=== PATIENT | female | born 1950 | race Caucasian/White ===

== ENCOUNTER → 2016-11-12 | Outpatient (CLI) | payer BC ==
[~2016-11-12] MED LIST: ASPEC81 PO; CGN1 PO; CYAN10004 PO; EFF375 PO; HYDR25TA5 PO; KLN5 PO; LEVO125T72 PO; LPT40 NG; LSN25 PO; OMEG-112 PO; POLY335040 PO; PROP20TA4 PO; PYRI100T2 PO; TAMS0.4C38 PO; VITACAP37 PO; ZYP5 PO
== END | disposition home or self-care (01) ==
LOC: C.PAPS 14:22
PROVIDERS: ATTEND Obstetrics & Gynecology
DX: Z01.419 Encounter for gynecological examination (general) (routine) without abnormal findings (principal)

== ENCOUNTER → 2017-06-02 | Outpatient (CLI) | payer BC ==
--- NOTE | 2017-06-02 12:04 | DIAGNOSTIC IMAGING REPORT ---
RIGHT FEMUR 2 VIEWS ROUTINE CLINICAL HISTORY: Right leg pain COMPARISON: None. DISCUSSION: No fractures or dislocations are visualized. No destructive lesions are visualized. There are minor degenerative changes within the knee. IMPRESSION: 1. No fractures identified 2. No destructive lesions are visualized on conventional radiographic imaging Electronically signed by: Antonio Levine M.D. 06/02/2017 12:03 PM Dictated Date/Time: 06/02/2017 12:02 PM
== END | disposition home or self-care (01) ==
LOC: C.RAD1850 11:46
PROVIDERS: ATTEND Family Medicine
DX: M79.604 Pain in right leg (principal)

== ENCOUNTER → 2017-06-25 | Outpatient (CLI) | payer BC ==
--- NOTE | 2017-06-25 12:58 | DIAGNOSTIC IMAGING REPORT ---
VIDEO SWALLOW CLINICAL HISTORY: DYSPHAGIA,VASCULAR DEMENTIA,AKATHISIA. COMPARISON STUDY: No previous studies for comparison. Fluoroscopy time: 4.3 minutes. FINDINGS: Swallowing mechanism was impaired with diminished laryngeal elevation and epiglottic inversion. Multiple episodes of tracheal aspiration were noted with swallows of thin liquids. No aspiration was identified with nectar thick liquids. No additional consistencies were given at this time. Significant residuals were noted. Swallowing mechanism was delayed. IMPRESSION: 1. Multiple episodes of tracheal aspiration with swallows of thin liquids. 2. Delayed initiation of swallow. 3. Full recommendations by speech pathology to follow. Electronically signed by: Naveen Aceves M.D. 06/25/2017 12:56 PM Dictated Date/Time: 06/25/2017 12:54 PM
--- NOTE | 2017-06-25 15:57 | SWALLOWING EVALUATION ---
HISTORY: This 66 year old woman was referred for a video swallow study at [facility] in order to rule out aspiration and identify the safest consistencies for optimal oral intake. Family (spouse and daughter) were present and provided history for the patient as she was unable. Patient has been slowly declining with regard to her swallowing over the past several months. 3-4 months ago, the patient was able to eat soft solid food and drink liquids without any significant issues. At this point, she is only accepting liquids. She will at times produce a cough and guttural/gurgly sounds while she is eating. In addition, the patient is taking many anti-psychotic medications which can be contributing to her swallowing difficulties and the spouse reported that these medications have been continuously adjusted for ~ 6 months. Current list of medications not available at the time of the study, but family did state one medication was "just approved by the FDA". PMH is significant for AMS, moderate major depression, vascular dementia, constipation, hyponatremia, tardive dyskinesia. Family denied any recent pneumonia. PROCEDURE: The patient was seen in the Radiology Department of [facility] for the [facility]. Cursory examination of the oral cavity revealed natural dentition in fair condition. Movement of the articulators was impaired as evidenced by lingual fasciculation and labial tremors. Speech was clear however she tended to have echolalia. She also presented with baseline guttural sounds. The patient was seated upright in a wheelchair and was viewed in the Lateral plane. The Anterior-Posterior (A-P) plane was deferred. Of note, the patient tended to keep a "chin up" position for the study and was unable to maintain a neutral chin position without MANAGER UNIT assistance (holding patient's head neutral). She was unable to follow directions to complete safe swallow strategies. In the lateral plane, the patient was given the following boluses: Single swallow thin liquid barium self-presented from a cup x1, 1 tsp. nectar-thick liquid barium, and a single swallow nectar-thick liquid barium clinician-presented from a cup x1. RESULTS: Oral Stage: Lip closure was reduced as evidenced by anterior loss from inter-labial space but did not progress past the monalisa boarder. The patient was unable to maintain a cohesive liquid bolus upon command. Mastication was unable to be assessed. Lingual motion for bolus transport was repetitive and disorganized. A majority of each bolus remained in the oral cavity after the initial swallow, located along the palate, tongue, lateral and anterior sulci. The initiation of the pharyngeal swallow was delayed and triggered when the bolus head reached pyriforms. Significant oral stage dysphagia noted. The patient had difficulty with initiation of lingual motion compounded by fasciculation/tremors. Verbal cues were not always effective and use of a gentle lingual depression with a dry spoon also did not assist. Pharyngeal Stage: Soft palate elevation was complete. Laryngeal elevation revealed partial superior movement of the thyroid cartilage and partial approximation of the arytenoids to the epiglottic base. Anterior hyoid excursion was partially reduced. There was little to no epiglottic deflection. Laryngeal vestibular closure was incomplete with a wide column of contrast being located in the vestibule at the height of the swallow. The pharyngeal stripping wave was present yet diminished. Pharyngeal contraction was not assessed. There was partial and at times minimal distention and duration to the opening of the pharyngoesophageal segment (PES). Tongue base retraction was reduced, with a wide column of contrast located between the tongue base and pharyngeal wall during the swallow. There was diffuse retention located throughout the pharynx after the initial swallow. The patient presented with laryngeal penetration and aspiration of thin liquids. She would produce a strong guttural/gurgly sound and cough reflex in response to this. Cough reflex was not strong enough to clear the airway of the aspiration. There was laryngeal penetration without aspiration of nectar thick liquids. Essentially, the patient would produce an initial swallow, yet most of the liquid bolus would remain in the pharynx. The bolus would then "montez" up and down in the pharynx while she attempted to re-swallow. While this occurred, the patient would aspirate. Eventually, the patient was able to produce 3 swallows (with time) and clear the majority of the bolus. She did not respond to verbal cues to swallow or, as stated above, lingual depression with a spoon. With nectar thick liquids, there were similar findings but with much less retention and no aspiration. She is however at HIGH risk to aspirate while this occurs. Solid boluses were not attempted due to safety concerns. SUMMARY/RECOMMENDATIONS: This patient presents with moderate-severe alethea-pharyngeal dysphagia ad is a HIGH aspiration risk. MANAGER UNIT spoke at length with spouse and daughter after the study was completed regarding results and concerns for aspiration that are likely due to not only her medical diagnoses but also her regimen of anti-psychotic medications which are known for causing dysphagia as a side effect. Family was present while the patient was producing a strong cough reflex from aspiration and stated while at times she does cough at home with eating, it is not as severe as what the patient was producing currently. They stated many times she is able to swallow liquid and medications in a timely manner, without holding or guttural sounds, but obviously has episodes such as what was presented today with the study. Spouse reported he consistently needs to hold the patient's head in a neutral position, and if she does cough or have any difficulty, he immediately stops feeding her and re-approaches her at a later time. She has not had any pneumonia recently and is able to ambulate at home. Patient is also able to brush her own teeth and does so at home as well. Family also reported that the patient has expressed in the past the she did not wish to have a feeding tube placed should a time comes where it may need to be considered. Due to the above, and for quality of life, the following is recommended: 1. Full liquid diet, NECTAR thick. 2. STRICT Aspiration precautions, NO straws. Fully upright while eating and 30 minutes after meals. Do not lay flat, elevate head of the bed to at least 30 degrees at all time, to include while sleeping. 3. Safe swallow strategies: Assist with keeping chin in a neutral position. Small single sips. Watch for the swallow. Stop feeding and re-approach with any evidence of coughing or overt aspiration. 4. Stringent oral care to include brushing all surfaces of the tongue and mouth with a toothbrush and toothpaste. Complete prior to and after meals, along with before bed. This will assist in reducing oral bacteria that can be aspirated in saliva. 5. Follow up with PCP regarding results and recommendations. Consider follow up with outpatient speech therapy services for continued education and carryover of diet/safe swallow strategies. 6. Family was encouraged to return to [facility] and have the patient be evaluated in the emergency department should the patient's swallowing status worsen further. All of the above were discussed with family with verbal understanding, to include signs of aspiration, risks of aspiration, aspiration pneumonia, completion of oral care, and where to purchase thickener. Dr. Pyle office was also contacted following the study regarding results and information was provided to [facility] as Dr. Pyle was out of the office. It is suspected the patient's swallowing may worsen further due to her medical diagnoses and medication management, and recommendation/plan of care would needs to be discussed with family if/when this occurs. Verbal understanding given by RN. Thank you for referral of this patient. Please contact me at if any additional information is needed.
== END | disposition home or self-care (01) ==
LOC: C.RAD 11:05
PROVIDERS: ATTEND Family Medicine
DX: R13.10 Dysphagia, unspecified (principal); F01.51 Vascular dementia, unspecified severity, with behavioral disturbance; E03.9 Hypothyroidism, unspecified; T43.505A Adverse effect of unspecified antipsychotics and neuroleptics, initial encounter; G25.71 Drug induced akathisia

== ENCOUNTER → 2017-07-05 | Outpatient (CLI) | payer BC ==
[~2017-07-05] MED LIST changes: +AGMUDL4005 PO; +CLON0.5T3 PO; +LEVO112T2 PO; +OLAN-80 PO; +PIMA17TA PO; +POLY3350 PO; +VALB40CA PO; +VENL150C56 PO
--- NOTE | 2017-07-05 12:24 | DIAGNOSTIC IMAGING REPORT ---
KUB CLINICAL HISTORY: Constipation. FINDINGS: 2 AP supine abdominal radiographs are compared to study dated 06/24/2016 and correlated with abdominal CT dated 07/28/2012. There is a nonobstructed abdominal bowel gas pattern. Moderate to severe colonic fecal retention is observed. Enteric contrast is present in the colon, possibly related to a recent fluoroscopic examination. No evidence of intraperitoneal free air is seen. There are no abnormal abdominal calcifications. Phleboliths are observed in the pelvis. The skeletal structures are osteopenic. The imaged skeletal structures appear intact. IMPRESSION: 1. Nonobstructed abdominal bowel gas pattern noting moderate to severe constipation. 2. There is retained enteric contrast within the colon, likely related to a recent fluoroscopic procedure. Clinical correlation will be required. Electronically signed by: Dick Phelan M.D. 07/05/2017 12:23 PM Dictated Date/Time: 07/05/2017 12:21 PM
== END | disposition home or self-care (01) ==
LOC: C.RAD1850 11:50
PROVIDERS: ATTEND Family Medicine
DX: K59.00 Constipation, unspecified (principal); R93.3 Abnormal findings on diagnostic imaging of other parts of digestive tract

== ENCOUNTER 2017-07-06 17:24 | Emergency (ER) | payer BC ==
[~2017-07-06] VITALS: Ht 154.9 cm; Wt 43.0 kg
[~2017-07-06 17:24] MED LIST changes: -AGMUDL4005 PO; -CGN1 PO; -CLON0.5T3 PO; -LEVO112T2 PO; -OLAN-80 PO; -PIMA17TA PO; -POLY3350 PO; -POLY335040 PO; -VALB40CA PO; -VENL150C56 PO
[2017-07-06] MEDS ORDERED: CGN1 PO (17:29)
[2017-07-06 17:40] VITALS: TEMP 36.9; Ht 154.9 cm; Wt 43.0 kg
[2017-07-06] MEDS ORDERED: SODIUM CHLORIDE 0.9% 1000ML 1,000 ML IV STA (18:09)
[2017-07-06 18:32] LABS: BASO % 0.4 %; BASO ABS # 0.03 K/uL (0-0.2); COMPLETE YES; EOS % 0.7 %; HEMATOCRIT 40.7 % (37-47); IG% 0.2 %; LYMPH % 16.2 %; LYMPH ABS # 1.33 K/uL (1.2-3.4); MEAN CELL VOLUME 92.5 fL (80-100); MEAN CORPUSCULAR HEMOGLOBIN 33.4 pg (25-34); MEAN CORPUSCULAR HGB CONC 36.1 g/dl (32-36); MEAN PLATELET VOLUME 10.3 fL (7.4-10.4); MONO % 11.1 %; NEUT % 71.4 %; PLATELET COUNT 325 K/uL (130-400)
[2017-07-06 18:54] LABS: BUN/CREATININE RATIO 14.7 (10-20); CALCIUM 9.3 mg/dl (8.5-10.1); CREATININE 0.63 mg/dl (0.60-1.20); POTASSIUM 3.2 mmol/L (3.5-5.1)
[2017-07-06] MEDS ORDERED: CLON0.5T3 PO ×2 (19:06→19:07)
[2017-07-06] MEDS ORDERED: VENL150C56 PO (19:07)
[2017-07-06] MEDS ORDERED: OLAN-80 PO (19:07)
[2017-07-06] MEDS ORDERED: LEVO112T2 PO (19:07)
[2017-07-06] MEDS ORDERED: VALB40CA PO (19:07)
[2017-07-06] MEDS ORDERED: PIMA17TA PO (19:07)
[2017-07-06] MEDS ORDERED: POLY3350 PO (19:08)
--- NOTE | 2017-07-06 19:13 | DIAGNOSTIC IMAGING REPORT ---
ABD/PELVIS NO IV OR ORAL CONT HISTORY: 66 years-old Female constipation, tachycardia, abd distension. Acute constipation with abdominal distention. COMPARISON: CT abdomen and pelvis 07/28/2012, renal ultrasound 06/22/2016 TECHNIQUE: Multiple axial CT images of the abdomen and pelvis were obtained without intravenous contrast. Oral contrast was administered. A dose lowering technique was used consistent with the principals of SHEILA. FINDINGS: There are groundglass and nodular consolidative opacities of the basal right lower lobe and right middle lobe, only partially imaged suggesting pneumonitis. No pneumoperitoneum identified. Imaged inferior cardiac chambers are mildly enlarged. Trace pericardial effusion. Coronary arterial disease. There is beam hardening artifact from positioning of patient's arms and also from overlying telemetry leads. Evaluation of the solid abdominal organs is limited without use of IV contrast The liver, spleen, pancreas, adrenal glands and gallbladder are unremarkable. There is mild left kidney atrophy compared to the right. No renal calculi or hydronephrosis. There is mild distention of the urinary bladder. Uterus and adnexa are unremarkable. No significant free pelvic fluid. There is mild atherosclerotic plaquing of the abdominal aorta. No bulky retroperitoneal adenopathy. There is no bowel obstruction or focal bowel wall thickening. Oral contrast progresses to the colon. Air-fluid levels within the rectosigmoid noted. No significant stool burden to suggest constipation. Tubular air-filled structures of the right lower quadrant seen on image 230 of series 3 suggests a normal appendix. Soft tissues are unremarkable. Bones are mildly demineralized. Advanced intervertebral disc space narrowing at L4-L5. 7 mm anterolisthesis L4 on L5 is likely secondary to underlying advanced facet disease. IMPRESSION: 1. No evidence of bowel obstruction. No significant stool burden identified to suggest constipation. 2. Air-fluid levels within the rectosigmoid may reflect diarrheal state. 3. No evidence of acute appendicitis. 4. Subsegmental groundglass and nodular consolidative opacities of the basal right lower lobe and right middle lobe, only partially imaged suggest pneumonitis. 5. Additional incidental findings as above. The above report was generated using voice recognition software. It may contain grammatical, syntax or spelling errors. Electronically signed by: Donell Giang M.D. 07/06/2017 7:12 PM Dictated Date/Time: 07/06/2017 7:02 PM
[2017-07-06] MEDS ORDERED: AMOXICILLIN/CLAVULANATE SUSP 400 MG/5 ML UDP PO STA (20:00)
[2017-07-06 20:09] VITALS: BP 140/98; PULSE 100; O2SAT 99
[2017-07-06] MEDS ORDERED: POLY335040 PO (20:11)
[2017-07-06] MEDS ORDERED: AGMUDL4005 PO ×2 (20:17→21:11)
[2017-07-06] MEDS ORDERED: AMOXICILLIN/CLAVULANATE SUSP 400 MG/5 ML PO ONE (20:30)
--- NOTE | 2017-07-07 01:01 | EMERGENCY ROOM VISIT NOTE ---
History Report prepared by Janis: Bonnie Anthony Under the Supervision of: Dr. Luis Khoury M.D. First contact with patient: 17:55 Chief Complaint: CONSTIPATION Stated Complaint: CONSTIPATION- PHYSICIAN REFERRED History of Present Illness The patient is a 66 year old female who presents to the Emergency Room with complaints of persistent constipation starting 2 weeks ago. The patient went to see her PCP yesterday and today for this. She was found to be constipated. Today she had an enema with some results, but not a large bowel movement. She was sent to the ED. Her family has not noticed any obvious abdominal tenderness or fever. The patient has dysphagia and it has been hard to get her to drink fluids. Her urine has been dark yellow recently. She has a history of strokes and tardive dyskinesia. She has not had any previous abdominal surgeries. The history is limited secondary to the patient's chronic medical issues. Source of History: family History Limited By: other (chronic medical issues) Onset: 2 weeks ago Position: other (global) Quality: other (constipation) Timing: other (persistent) Modifying Factors (Relieving): other (enema) Associated Symptoms: + urinary symptoms (dark urine), No fevers, No abdominal pain Review of Systems Limited secondary to patient's chronic medical problems. Past Medical & Surgical Medical Problems: (1) Altered mental status (2) Constipation (3) Hyponatremia (4) Moderate major depression, single episode (5) Suicidal thoughts (6) Tardive dyskinesia (7) Vascular dementia Family History Ovarian cancer Uterine cancer Social History Smoking Status: Never Smoker Drug Use: none Marital Status: Housing Status: lives with family Occupation Status: retired Current/Historical Medications Scheduled Amoxicillin/Clavulanate Potas (Augmentin 400MG/5ML), 10 ML PO BID Amoxicillin/Clavulanate Potas (Augmentin 400MG/5ML), 10 ML PO BID Benztropine Mesylate (Cogentin), 0.5 TAB PO DAILY Clonazepam (Klonopin), 0.5 MG PO BID Clonazepam (Klonopin), 0.75 MG PO HS Levothyroxine Sodium (Synthroid), 112 MCG PO DAILY Olanzapine (Zyprexa), 1.25 MG PO DAILY Pimavanserin Tartrate (Nuplazid), 2 TABS PO QPM Propranolol Hcl (Inderal), 10 MG PO BID Tamsulosin Hcl (Flomax), 0.4 MG PO DAILY Valbenazine Tosylate (Ingrezza), 80 MG PO QPM Venlafaxine Hcl (Effexor Extended Rel), 150 MG PO DAILY Scheduled PRN Polyethylene Glycol 3350 (Polyethylene Glycol 3350), 17 GM PO DAILY PRN for Constipation Allergies Coded Allergies: Clarithromycin (Verified Allergy, Unknown, unknown, 04/23/12) [facility] Doxycycline (Verified Allergy, Unknown, unknown, 04/23/12) [facility] Gabapentin (Verified Allergy, Unknown, UNKNOWN, 07/28/12) Norepinephrine (Verified Adverse Reaction, Unknown, rapid hr, 08/02/16) Physical Exam Vital Signs Date Time Temp Pulse Resp B/P (MAP) Pulse Ox O2 Delivery O2 Flow Rate FiO2 07/06/17 20:09 100 22 140/98 99 Room Air 07/06/17 19:31 97 07/06/17 18:32 107 142/89 95 Room Air 07/06/17 17:40 36.9 133 20 133/96 96 Room Air Physical Exam GENERAL: Awake, alert, well-appearing, in no distress HENT: Normocephalic, atraumatic. Oropharynx unremarkable. EYES: Normal conjunctiva. Sclera non-icteric. NECK: Supple. No nuchal rigidity. FROM. No JVD. RESPIRATORY: Clear to auscultation. CARDIAC: Borderline tachycardic rate, normal rhythm. Extremities warm and well perfused. Pulses equal. ABDOMEN: Soft, non-distended. No tenderness to palpation. No rebound or guarding. No masses. RECTAL: Deferred. MUSCULOSKELETAL: Chest examination reveals no tenderness. No joint edema. Generalized muscular atrophy. LOWER EXTREMITIES: Calves are equal size bilaterally and non-tender. No edema. No discoloration. NEURO: Patient is aphasic except for moaning. Does not follow commands. SKIN: No rash or jaundice noted. Medical Decision & Procedures ER Provider Diagnostic Interpretation: Radiology results as stated below per my review and radiologist interpretation: ABD/PELVIS NO IV OR ORAL CONT HISTORY: 66 years-old Female constipation, tachycardia, abd distension. Acute constipation with abdominal distention. COMPARISON: CT abdomen and pelvis 07/28/2012, renal ultrasound 06/22/2016 TECHNIQUE: Multiple axial CT images of the abdomen and pelvis were obtained without intravenous contrast. Oral contrast was administered. A dose lowering technique was used consistent with the principals of SHEILA. FINDINGS: There are groundglass and nodular consolidative opacities of the basal right lower lobe and right middle lobe, only partially imaged suggesting pneumonitis. No pneumoperitoneum identified. Imaged inferior cardiac chambers are mildly enlarged. Trace pericardial effusion. Coronary arterial disease. There is beam hardening artifact from positioning of patient's arms and also from overlying telemetry leads. Evaluation of the solid abdominal organs is limited without use of IV contrast The liver, spleen, pancreas, adrenal glands and gallbladder are unremarkable. There is mild left kidney atrophy compared to the right. No renal calculi or hydronephrosis. There is mild distention of the urinary bladder. Uterus and adnexa are unremarkable. No significant free pelvic fluid. There is mild atherosclerotic plaquing of the abdominal aorta. No bulky retroperitoneal adenopathy. There is no bowel obstruction or focal bowel wall thickening. Oral contrast progresses to the colon. Air-fluid levels within the rectosigmoid noted. No significant stool burden to suggest constipation. Tubular air-filled structures of the right lower quadrant seen on image 230 of series 3 suggests a normal appendix. Soft tissues are unremarkable. Bones are mildly demineralized. Advanced intervertebral disc space narrowing at L4-L5. 7 mm anterolisthesis L4 on L5 is likely secondary to underlying advanced facet disease. IMPRESSION: 1. No evidence of bowel obstruction. No significant stool burden identified to suggest constipation. 2. Air-fluid levels within the rectosigmoid may reflect diarrheal state. 3. No evidence of acute appendicitis. 4. Subsegmental groundglass and nodular consolidative opacities of the basal right lower lobe and right middle lobe, only partially imaged suggest pneumonitis. 5. Additional incidental findings as above. The above report was generated using voice recognition software. It may contain grammatical, syntax or spelling errors. Electronically signed by: Donell Giang M.D. 07/06/2017 7:12 PM Dictated Date/Time: 07/06/2017 7:02 PM Laboratory Results 07/06/17 18:18 Red Blood Count 4.40, Mean Corpuscular Volume 92.5, Mean Corpuscular Hemoglobin 33.4, Mean Corpuscular Hemoglobin Concent 36.1, Mean Platelet Volume 10.3, Neutrophils (%) (Auto) 71.4, Lymphocytes (%) (Auto) 16.2, Monocytes (%) (Auto) 11.1, Eosinophils (%) (Auto) 0.7, Basophils (%) (Auto) 0.4, Neutrophils # (Auto ) 5.85, Lymphocytes # (Auto) 1.33, Monocytes # (Auto) 0.91, Eosinophils # (Auto ) 0.06, Basophils # (Auto) 0.03 07/06/17 18:18 Test 07/06/17 18:18 White Blood Count 8.20 K/uL (4.8-10.8) Red Blood Count 4.40 M/uL (4.2-5.4) Hemoglobin 14.7 g/dL (12.0-16.0) Hematocrit 40.7 % (37-47) Mean Corpuscular Volume 92.5 fL (80-100) Mean Corpuscular Hemoglobin 33.4 pg (25-34) Mean Corpuscular Hemoglobin Concent 36.1 g/dl (32-36) Platelet Count 325 K/uL (130-400) Mean Platelet Volume 10.3 fL (7.4-10.4) Neutrophils (%) (Auto) 71.4 % Lymphocytes (%) (Auto) 16.2 % Monocytes (%) (Auto) 11.1 % Eosinophils (%) (Auto) 0.7 % Basophils (%) (Auto) 0.4 % Neutrophils # (Auto) 5.85 K/uL (1.4-6.5) Lymphocytes # (Auto) 1.33 K/uL (1.2-3.4) Monocytes # (Auto) 0.91 K/uL (0.11-0.59) Eosinophils # (Auto) 0.06 K/uL (0-0.5) Basophils # (Auto) 0.03 K/uL (0-0.2) RDW Standard Deviation 46.2 fL (36.4-46.3) RDW Coefficient of Variation 13.6 % (11.5-14.5) Immature Granulocyte % (Auto) 0.2 % Immature Granulocyte # (Auto) 0.02 K/uL (0.00-0.02) Anion Gap 9.0 mmol/L (3-11) Est Creatinine Clear Calc Drug Dose 58.0 ml/min Estimated GFR () 106.8 Estimated GFR (Non- 92.2 BUN/Creatinine Ratio 14.7 (10-20) Calcium Level 9.3 mg/dl (8.5-10.1) Total Bilirubin 0.5 mg/dl (0.2-1) Direct Bilirubin 0.1 mg/dl (0-0.2) Aspartate Amino Transf (AST/SGOT) 21 U/L (15-37) Alanine Aminotransferase (ALT/SGPT) 27 U/L (12-78) Alkaline Phosphatase 102 U/L (45-117) Total Protein 7.4 gm/dl (6.4-8.2) Albumin 3.7 gm/dl (3.4-5.0) Lipase 84 U/L (73-393) Laboratory results reviewed by me Medications Administered Medications (Trade) Dose Ordered Sig/Wm Route Start Time Stop Time Status Last Admin Dose Admin Sodium Chloride 1,000 ml @ 999 mls/hr Q1H1M STAT IV 07/06/17 18:09 07/06/17 19:09 DC 07/06/17 18:09 999 MLS/HR Amoxicillin/ Clavulanate Potassium (Augmentin Susp) 10 ml ONE ONCE PO 07/06/17 20:30 07/06/17 20:31 DC 07/06/17 20:44 10 ML ED Course 1803: The patient was evaluated in room C7. A complete history and physical exam was performed. 1809: NSS 1000 ml @ 999 mls/hr IV. 2000: I reevaluated the patient. She is doing well. I discussed results and discharge instructions with her family: They verbalized understanding and agreement. The patient is ready for discharge. 2030: Augmentin Susp 10 ml PO. Medical Decision Prior records/ancillary studies reviewed. Triage Nursing notes reviewed and agree them. Additional history obtained from family. The patient's history was concerning for constipation. Differential diagnosis: Etiologies such as functional constipation, impaction, obstruction, volvulus, metabolic abnormality, infection, neurologic, as well as others were entertained. Physical examination findings: As above. ER treatment provided: The patient was hydrated Oral Augmentin Diagnostics interpreted by me: The labs revealed an unremarkable CBC and chemistry panel. Imaging studies: CT scan as above The patient was evaluated. She has significant limitations given her chronic medical issues. She had what seemed to be a large bowel movement with the enema performed at the office but they were unsure. CT scan was performed as above and there is no evidence of impaction or significant fecal load. She did have some mild pneumonitis. The states that she has had issues in the past with a aspiration on a swallowing study. Because of this the patient was prescribed liquid Augmentin. The at that she has difficulty swallowing large pills. Clinically she is doing well. I discussed conservative management with close follow-up in the office. The felt comfortable with this. She worsens in any way she will be back to the Emergency Room. By the evaluation outlined above emergent etiologies such as obstruction, volvulus, metabolic abnormality, infection , neurologic, as well as others were deemed relatively unlikely. The family was informed about the findings as listed above. All questions were answered and they were pleased with the treatment. Return instructions were outlined and the patient was discharged in stable condition. Outpatient prescription management: Augmentin Referral: The patient was referred back to their primary care physician for follow-up in 2 to 3 days for a recheck of the current condition. Medication Reconcilliation Current Medication List: was personally reviewed by me Blood Pressure Screening Patient's blood pressure: Elevated blood pressure Blood pressure disposition: Referred to PCP Impression Primary Impression: Constipation Additional Impression: Pneumonitis Scribe Attestation The scribe's documentation has been prepared under my direction and personally reviewed by me in its entirety. I confirm that the note above accurately reflects all work, treatment, procedures, and medical decision making performed by me. Departure Information Dispostion Home / Self-Care Prescriptions Amoxicillin/Clavulanate Potas (AUGMENTIN 400MG/5ML) 400 Mg/5 Ml Susp 10 ML PO BID, #40 ML Prov: Luis Khoury MD 07/06/17 Amoxicillin/Clavulanate Potas (AUGMENTIN 400MG/5ML) 400 Mg/5 Ml Susp 10 ML PO BID, #90 ML Prov: Luis Khoury MD 07/06/17 Referrals Levy Pyle M.D. (PCP) Forms HOME CARE DOCUMENTATION FORM, IMPORTANT VISIT INFORMATION Patient Instructions My [facility] Additional Instructions Augmentin suspension(400mg/5ml): Take 10 ml's twice daily for 7 days. Any medication can cause an allergic reaction, stop the prescription immediately and return to the ER for rash, hives, breathing difficulties, or swelling. Children's Tylenol/acetaminophen(160mg/5ml): Use 20 ml's every 6 hours for fever or pain control. Encourage fluid intake. Return to the ER for lethargy, vomiting, difficulty breathing, abdominal pain, worsening of the condition, or for any concerns. Follow up with your family doctor by phone tomorrow and let them know she was treated in the ER and schedule a follow up appointment. Problem Qualifiers
== END 2017-07-06 20:27 | disposition home or self-care (01) ==
LOC: C.EDB 17:26 → C.EDC 20:27
DX: K59.00 Constipation, unspecified (principal); J18.9 Pneumonia, unspecified organism; I69.991 Dysphagia following unspecified cerebrovascular disease; G24.01 Drug induced subacute dyskinesia; F01.50 Vascular dementia, unspecified severity, without behavioral disturbance, psychotic disturbance, mood disturbance, and anxiety; F32.9 Major depressive disorder, single episode, unspecified; Z80.41 Family history of malignant neoplasm of ovary; Z80.49 Family history of malignant neoplasm of other genital organs

== ENCOUNTER 2017-07-18 14:18 | Inpatient (IN) | payer BC, OTHER ==
[~2017-07-18] VITALS: Ht 157.5 cm; Wt 43.2 kg
[~2017-07-18 14:18] MED LIST changes: +AGMUDL4005 PO; -ASPEC81 PO; +BENZ-89 PO; +CLON0.5T3 PO; -CYAN10004 PO; -EFF375 PO; -HYDR25TA5 PO; -KLN5 PO; +LEVO112T2 PO; -LEVO125T72 PO; -LPT40 NG; -LSN25 PO; +OLAN-80 PO; -OMEG-112 PO; +PIMA17TA PO; +POLY3350 PO; -PYRI100T2 PO; +VALB40CA PO; +VENL150C56 PO; -VITACAP37 PO; -ZYP5 PO
[2017-07-18] MEDS ORDERED: SODIUM CHLORIDE 0.9% 1000ML 1,000 ML IV ONE (14:54)
--- NOTE | 2017-07-18 15:02 | EMERGENCY ROOM VISIT NOTE ---
History Report prepared by Janis: Dennys Hutton Under the Supervision of: Dr. Brandon Nance D.O. First contact with patient: 14:50 Chief Complaint: RESPIRATORY PROBLEMS Stated Complaint: ILLNESS Nursing Triage Summary: pt arrives via EMS family reports pt has become more altered over the last week . family reports pt has had decreased po intake over the last week as well denies NV . last BM 2 days has not urinated since yesterday when asking pt if she has pain she reports everywhere History of Present Illness The patient is a 66 year old female who presents to the Emergency Room with complaints of altered mental status. This HPI is given by the patient's family secondary to her mental status and verbal moaning. The patient has a past medical history of depression, micro-strokes, a suicide attempt, and dementia. She was placed on new medications 3 weeks ago and has been verbally moaning since this time. Last week, she was feeling better, but did have two minor falls. Recently, the patient has been more mentally altered than her baseline. She is also refusing to drink any liquids. She is on an all liquid diet and takes her medications with liquid as well, so she has been unable to take her medications. She denies any nausea, vomiting, rhinorrhea, chest pain, or trouble urinating. Per the family, she is back to her baseline. The patient states she has pain everywhere. Source of History: family Onset: recently Position: other (global) Symptom Intensity: moderate Quality: other (AMS) Timing: constant Associated Symptoms: No chest pain, No nausea, No vomiting, No urinary symptoms Note: Patient is complaining of pain everywhere. Review of Systems See HPI for pertinent positives & negatives. A total of 10 systems reviewed and were otherwise negative. Past Medical & Surgical Medical Problems: (1) Altered mental status (2) Constipation (3) Hyponatremia (4) Moderate major depression, single episode (5) Suicidal thoughts (6) Tardive dyskinesia (7) Vascular dementia Family History Ovarian cancer Uterine cancer Social History Smoking Status: Former Smoker Drug Use: none Marital Status: Housing Status: lives with family Occupation Status: retired Current/Historical Medications Scheduled Benztropine Mesylate (Benztropine Mesylate), 0.25 MG PO BID Clonazepam (Klonopin), 0.5 MG PO BID Clonazepam (Klonopin), 0.75 MG PO HS Levothyroxine Sodium (Synthroid), 112 MCG PO QAM Olanzapine (Zyprexa), 1.25 MG PO QAM Pimavanserin Tartrate (Nuplazid), 34 MG PO QPM Propranolol Hcl (Inderal), 10 MG PO BID Tamsulosin Hcl (Flomax), 0.4 MG PO QPM Valbenazine Tosylate (Ingrezza), 80 MG PO QPM Venlafaxine Hcl (Effexor Extended Rel), 75 MG PO BID Scheduled PRN Polyethylene Glycol 3350 (Polyethylene Glycol 3350), 17 GM PO QAM PRN for Constipation Allergies Coded Allergies: Clarithromycin (Verified Allergy, Unknown, unknown, 07/18/17) [facility] Doxycycline (Verified Allergy, Unknown, unknown, 07/18/17) [facility] Gabapentin (Verified Allergy, Unknown, UNKNOWN, 07/18/17) Norepinephrine (Verified Adverse Reaction, Unknown, rapid hr, 07/18/17) Physical Exam Vital Signs Date Time Temp Pulse Resp B/P (MAP) Pulse Ox O2 Delivery O2 Flow Rate FiO2 07/18/17 18:25 105 07/18/17 17:20 111 20 165/89 99 Nasal Cannula 2.0 07/18/17 15:47 98 Nasal Cannula 3.0 07/18/17 15:46 113 16 155/109 98 Nasal Cannula 3.0 07/18/17 14:39 95 Nasal Cannula 3.0 07/18/17 14:31 114 07/18/17 14:30 37.3 110 20 158/110 88 Room Air Physical Exam GENERAL: Patient appears awake but is moaning and making upper airway noises. Follows commands slowly. EYES: The conjunctivae are clear. The pupils are round and reactive. EARS, NOSE, MOUTH AND THROAT: The nose is without any evidence of any deformity. Mucous membranes are dry tongue is midline NECK: The neck is nontender and supple. RESPIRATORY: Lung sounds are diminished throughout with scattered rhonchi. Tachypnea appreciated. CARDIOVASCULAR: Regular rate and rhythm noted there no murmurs rubs or gallops normal S1 normal S2 GASTROINTESTINAL: The abdomen is soft. Bowel sounds are present in all quadrants. Abdomen is nontender MUSCULOSKELETAL/EXTREMITIES: There is no evidence of gross deformity full range of motion is noted in the hips and shoulders SKIN: Warm and dry. No significant pedal edema. NEUROLOGIC: Patient is at her baseline per family members. Medical Decision & Procedures ER Provider Diagnostic Interpretation: Radiology results as stated below per my review and radiologist interpretation: CHEST ONE VIEW PORTABLE CLINICAL HISTORY: Sepsis dyspnea COMPARISON STUDY: 08/02/2016 FINDINGS: The bones soft tissues and hemidiaphragms are normal. The cardiomediastinal silhouette is normal. The lungs are clear. The pulmonary vasculature is normal. IMPRESSION: Negative chest. The above report was generated using voice recognition software. It may contain grammatical, syntax or spelling errors. Electronically signed by: Uriel Figueroa M.D. 07/18/2017 3:58 PM Dictated Date/Time: 07/18/2017 3:57 PM (CHEST FOR PE) ANGIO WITH CT DOSE: 179.82 mGy.cm HISTORY: Chest pain dyspnea TECHNIQUE: Multiaxial CT images of the chest were performed following the intravenous administration of contrast to evaluate the pulmonary arteries. Maximal intensity projection images were also obtained. A dose lowering technique was utilized adhering to the principles of ALARA. COMPARISON STUDY: None. FINDINGS: There is a normal caliber thoracic aorta with no evidence for dissection. There there are several small third order filling defects of the left and to lesser extent right base. There is no evidence for a central or primary pulmonary embolus. There are scattered atelectatic changes throughout both hemithoraces. The thoracic aorta is normal in course and caliber.. No pleural effusions. No pneumothorax. The liver and spleen are unremarkable. No mediastinal or hilar lymphadenopathy. The central airways are patent. The lungs are clear. IMPRESSION: 1. Study is positive for several very small third order emboli involving the left and to lesser extent right base. 2. No evidence for a central, main, or first order pulmonary embolus. 3. Minimal scattered atelectatic change of both hemithoraces with no well-defined focal infiltrate. The above report was generated using voice recognition software. It may contain grammatical, syntax or spelling errors. Electronically signed by: Uriel Figueroa M.D. 07/18/2017 5:43 PM Dictated Date/Time: 07/18/2017 5:38 PM Laboratory Results 07/18/17 15:23 Red Blood Count 4.58, Mean Corpuscular Volume 95.9, Mean Corpuscular Hemoglobin 33.6, Mean Corpuscular Hemoglobin Concent 35.1, Mean Platelet Volume 11.0, Neutrophils (%) (Auto) 80.0, Lymphocytes (%) (Auto) 10.3, Monocytes (%) (Auto) 8.9, Eosinophils (%) (Auto) 0.2, Basophils (%) (Auto) 0.4, Neutrophils # (Auto) 9.68, Lymphocytes # (Auto) 1.25, Monocytes # (Auto) 1.08, Eosinophils # (Auto) 0.02, Basophils # (Auto) 0.05 07/18/17 15:23 Test 07/18/17 14:46 07/18/17 15:23 07/18/17 15:31 Urine Color YELLOW Urine Appearance CLEAR (CLEAR) Urine pH 6.5 (4.5-7.5) Urine Specific [place] 1.021 (1.000-1.030) Urine Protein NEG (NEG) Urine Glucose (UA) NEG (NEG) Urine Ketones 3+ (NEG) Urine Occult Blood NEG (NEG) Urine Nitrite NEG (NEG) Urine Bilirubin NEG (NEG) Urine Urobilinogen NEG (NEG) Urine Leukocyte Esterase NEG (NEG) Urine WBC (Auto) 1-5 /hpf (0-5) Urine RBC (Auto) 0-4 /hpf (0-4) Urine Hyaline Casts (Auto) 1-5 /lpf (0-5) Urine Epithelial Cells (Auto) 10-20 /lpf (0-5) Urine Bacteria (Auto) NEG (NEG) White Blood Count 12.11 K/uL (4.8-10.8) Red Blood Count 4.58 M/uL (4.2-5.4) Hemoglobin 15.4 g/dL (12.0-16.0) Hematocrit 43.9 % (37-47) Mean Corpuscular Volume 95.9 fL (80-100) Mean Corpuscular Hemoglobin 33.6 pg (25-34) Mean Corpuscular Hemoglobin Concent 35.1 g/dl (32-36) Platelet Count 273 K/uL (130-400) Mean Platelet Volume 11.0 fL (7.4-10.4) Neutrophils (%) (Auto) 80.0 % Lymphocytes (%) (Auto) 10.3 % Monocytes (%) (Auto) 8.9 % Eosinophils (%) (Auto) 0.2 % Basophils (%) (Auto) 0.4 % Neutrophils # (Auto) 9.68 K/uL (1.4-6.5) Lymphocytes # (Auto) 1.25 K/uL (1.2-3.4) Monocytes # (Auto) 1.08 K/uL (0.11-0.59) Eosinophils # (Auto) 0.02 K/uL (0-0.5) Basophils # (Auto) 0.05 K/uL (0-0.2) RDW Standard Deviation 47.6 fL (36.4-46.3) RDW Coefficient of Variation 13.6 % (11.5-14.5) Immature Granulocyte % (Auto) 0.2 % Immature Granulocyte # (Auto) 0.03 K/uL (0.00-0.02) Erythrocyte Sedimentation Rate 17 mm/hr (0-21) Prothrombin Time 10.6 SECONDS (9.0-12.0) Prothromb Time International Ratio 1.0 (0.9-1.1) Activated Partial Thromboplast Time 24.7 SECONDS (21.0-31.0) Partial Thromboplastin Ratio 1.0 Venous Blood pH 7.38 (7.36-7.41) Venous Blood Partial Pressure CO2 49 mmHg (38.0-50.0) Venous Blood Partial Pressure O2 25 mmHg Venous Blood HCO3 28 mmol/L Venous Blood Oxygen Saturation < 60.0 % Venous Blood Base Excess 2.1 mEq/L Anion Gap 8.0 mmol/L (3-11) Estimated GFR () 108.0 Estimated GFR (Non- 93.1 BUN/Creatinine Ratio 22.7 (10-20) Calcium Level 9.1 mg/dl (8.5-10.1) Phosphorus Level 2.8 mg/dl (2.5-4.9) Magnesium Level 2.5 mg/dl (1.8-2.4) Total Bilirubin 0.7 mg/dl (0.2-1) Aspartate Amino Transf (AST/SGOT) 40 U/L (15-37) Alanine Aminotransferase (ALT/SGPT) 74 U/L (12-78) Alkaline Phosphatase 119 U/L (45-117) Total Creatine Kinase 39 U/L (26-192) Creatine Kinase MB 2.7 ng/ml (0.5-3.6) Creatine Kinase MB Ratio 6.9 (0-3.0) Troponin I < 0.015 ng/ml (0-0.045) C-Reactive Protein < 0.29 mg/dl (0-0.29) Pro-B-Type Natriuretic Peptide 151 pg/ml (0-900) Total Protein 7.7 gm/dl (6.4-8.2) Albumin 3.7 gm/dl (3.4-5.0) Globulin 4.0 gm/dl (2.5-4.0) Albumin/Globulin Ratio 0.9 (0.9-2) Lipase 71 U/L (73-393) Bedside Lactic Acid Venous 1.93 mmol/L (0.90-1.70) Laboratory results per my review. Medications Administered Medications (Trade) Dose Ordered Sig/Wm Route Start Time Stop Time Status Last Admin Dose Admin Sodium Chloride 1,000 ml @ 999 mls/hr Q1H1M ONCE IV 07/18/17 14:54 07/18/17 15:54 DC 07/18/17 15:44 999 MLS/HR Enoxaparin Sodium (Lovenox Inj) 100 mg STK-MED ONCE .ROUTE 07/18/17 18:08 07/18/17 18:09 DC 07/18/17 18:13 50 MG ECG Indication: SOB/dyspnea Rate (beats per minute): 110 Rhythm: sinus tachycardia Findings: Q waves (Inferior), other (No STS abnormalities) Comparison ECG Date: 05 Aug 2016 Change: Findings new compared to previous ED Course 1450: The patient was evaluated in room C1. A complete history and physical examination were performed. 1454: Ordered NSS 1,000 ml @ 999 mls/hr IV 1800: Ordered Lovenox Inj 50 mg SQ 1815: Upon reevaluation, the patient is resting. I discussed results and treatment plan with her family. They verbalizes agreement and understanding. I spoke with [facility] hospitalist , Dr. Benson. The patient will be evaluated for further management and care. Medical Decision Differential diagnosis: Etiologies such as metabolic, infection, hypoglycemia, electrolyte abnormalities , cardiac sources, intracerebral event, toxicologic, neurologic, as well as others were entertained. The patient is a 66-year-old female who presented to emergency department for an evaluation of difficulty breathing. The patient's and daughter give most of the history. The patient has been immobilized recently and according to the significant other has not been eating or drinking for the last 24 hours. They were concerned she may have pneumonia. She has a history of aspiration. The patient's breath sounds did not reveal any abnormal breath sounds in her chest x-ray did not appear to be consistent with pneumonia. Because the patient' s EKG changes and tachycardia CT of the chest was obtained which did reveal signs of acute pulmonary embolism. The patient was started on Lovenox. I discussed the patient's laboratory radiographic studies with the family. I discussed his case with the on-call [facility] hospitalist. They've agreed to evaluate the patient in the emergency department for further management and disposition. Medication Reconcilliation Current Medication List: was personally reviewed by me Blood Pressure Screening Patient's blood pressure: Elevated blood pressure Blood pressure disposition: Elevated BP felt to be situational Impression Primary Impression: Pulmonary emboli Additional Impressions: Hypoxia Tachycardia Abnormal ECG Critical Care I have personally spent greater than 40 minutes of critical care time in the direct management of this patient. This includes bedside care, interpretation of diagnostic studies, and testing, discussion with consultants, patient, and family members, and other required patient management activities. This 40 minutes is in excess of all separately billable procedures. Scribe Attestation The scribe's documentation has been prepared under my direction and personally reviewed by me in its entirety. I confirm that the note above accurately reflects all work, treatment, procedures, and medical decision making performed by me. Departure Information Dispostion Being Evaluated By Hospitalist Levy Ignacio M.D. (PCP) Patient Instructions My [facility] Health Problem Qualifiers Primary Impression: Pulmonary emboli Pulmonary embolism type: other Chronicity: acute Acute cor pulmonale presence: without acute cor pulmonale Qualified Codes: I26.99 - Other pulmonary embolism without acute cor pulmonale
[2017-07-18] MEDS ORDERED: PIMA17TA PO (15:04)
[2017-07-18] MEDS ORDERED: BENZ0.5T2 PO (15:04)
[2017-07-18] MEDS ORDERED: EFFSR75 PO (15:04)
[2017-07-18] MEDS ORDERED: PROP10TA7 PO (15:04)
[2017-07-18 15:05] LABS: URINE APPEARANCE CLEAR (CLEAR); URINE BILIRUBIN NEG (NEG); URINE COLOR YELLOW; URINE NITRITE NEG (NEG); URINE PH 6.5 (4.5-7.5); URINE SPECIFIC GRAVITY 1.021 (1.000-1.030); UROBILINOGEN NEG (NEG); ZZURINE CULT IF INDIC CATH NO
[2017-07-18 15:07] LABS: MANUAL MICROSCOPIC REQUIRED? NO; REVIEW REQ? NO
[2017-07-18 15:35] LABS: VEN BLOOD GAS BASE EXCESS 2.1 mEq/L; VENOUS BLOOD GAS PCO2 49 mmHg (38.0-50.0); VENOUS BLOOD GAS PO2 25 mmHg
[2017-07-18 15:41] LABS: VEN BLD GAS O2 SATURATION < 60.0 %
[2017-07-18 15:49] LABS: BASO % 0.4 %; BASO ABS # 0.05 K/uL (0-0.2); COMPLETE YES; EOS % 0.2 %; HEMATOCRIT 43.9 % (37-47); IG% 0.2 %; LYMPH % 10.3 %; LYMPH ABS # 1.25 K/uL (1.2-3.4); MEAN CELL VOLUME 95.9 fL (80-100); MEAN CORPUSCULAR HEMOGLOBIN 33.6 pg (25-34); MEAN CORPUSCULAR HGB CONC 35.1 g/dl (32-36); MONO % 8.9 %; PLATELET COUNT 273 K/uL (130-400); RED BLOOD COUNT 4.58 M/uL (4.2-5.4); WHITE BLOOD COUNT 12.11 K/uL (4.8-10.8)
[2017-07-18 15:59] LABS: PROTHROMBIN TIME (PATIENT) 10.6 SECONDS (9.0-12.0)
--- NOTE | 2017-07-18 15:59 | DIAGNOSTIC IMAGING REPORT ---
CHEST ONE VIEW PORTABLE CLINICAL HISTORY: Sepsis dyspnea COMPARISON STUDY: 08/02/2016 FINDINGS: The bones soft tissues and hemidiaphragms are normal. The cardiomediastinal silhouette is normal. The lungs are clear. The pulmonary vasculature is normal. IMPRESSION: Negative chest. The above report was generated using voice recognition software. It may contain grammatical, syntax or spelling errors. Electronically signed by: Uriel Figueroa M.D. 07/18/2017 3:58 PM Dictated Date/Time: 07/18/2017 3:57 PM
[2017-07-18 16:06] LABS: ALT/SGPT 74 U/L (12-78); AST/SGOT 40 U/L (15-37); BLOOD UREA NITROGEN 14 mg/dl (7-18); BUN/CREATININE RATIO 22.7 (10-20); CALCIUM 9.1 mg/dl (8.5-10.1); CARBON DIOXIDE 28 mmol/L (21-32); CHLORIDE 105 mmol/L (98-107); CREATININE 0.61 mg/dl (0.60-1.20); GLUCOSE 68 mg/dl (70-99); MAGNESIUM 2.5 mg/dl (1.8-2.4); POTASSIUM 4.5 mmol/L (3.5-5.1); SODIUM 141 mmol/L (136-145)
[2017-07-18 16:10] LABS: ALB/GLOB RATIO 0.9 (0.9-2); ALKALINE PHOSPHATASE 119 U/L (45-117); C-REACTIVE PROTEIN < 0.29 mg/dl (0-0.29); CKMB/CK RATIO 6.9 (0-3.0); PHOSPHORUS 2.8 mg/dl (2.5-4.9)
[2017-07-18] MEDS ORDERED: OPTIRAY 320 IV PRN (16:30)
--- NOTE | 2017-07-18 17:45 | DIAGNOSTIC IMAGING REPORT ---
(CHEST FOR PE) ANGIO WITH CT DOSE: 179.82 mGy.cm HISTORY: Chest pain dyspnea TECHNIQUE: Multiaxial CT images of the chest were performed following the intravenous administration of contrast to evaluate the pulmonary arteries. Maximal intensity projection images were also obtained. A dose lowering technique was utilized adhering to the principles of ALARA. COMPARISON STUDY: None. FINDINGS: There is a normal caliber thoracic aorta with no evidence for dissection. There there are several small third order filling defects of the left and to lesser extent right base. There is no evidence for a central or primary pulmonary embolus. There are scattered atelectatic changes throughout both hemithoraces. The thoracic aorta is normal in course and caliber.. No pleural effusions. No pneumothorax. The liver and spleen are unremarkable. No mediastinal or hilar lymphadenopathy. The central airways are patent. The lungs are clear. IMPRESSION: 1. Study is positive for several very small third order emboli involving the left and to lesser extent right base. 2. No evidence for a central, main, or first order pulmonary embolus. 3. Minimal scattered atelectatic change of both hemithoraces with no well-defined focal infiltrate. The above report was generated using voice recognition software. It may contain grammatical, syntax or spelling errors. Electronically signed by: Uriel Figueroa M.D. 07/18/2017 5:43 PM Dictated Date/Time: 07/18/2017 5:38 PM
[2017-07-18] MEDS ORDERED: ENOXAPARIN 60 MG/0.6 ML SYR SQ ONE (18:00)
[2017-07-18] MEDS ORDERED: ENOXAPARIN 100 MG/1ML SYR ONE (18:08)
[2017-07-18 20:30] VITALS: O2SAT 98
[2017-07-18] MEDS ORDERED: POLYETHYLENE (MIRALAX) 17 GM PACK PO PRN (20:45)
[2017-07-18] MEDS: BENZTROPINE MESYLATE 0.5 MG TAB PO SCH (21:00)
[2017-07-18] MEDS: TAMSULOSIN HCL 0.4 MG CAP PO SCH (21:00)
[2017-07-18] MEDS: PROPRANOLOL HCL 10 MG TAB PO SCH (21:00)
[2017-07-18] MEDS: VENLAFAXINE HCL XR 75 MG CAPXR PO SCH (21:00)
[2017-07-18 21:30] VITALS: BP 143/86; PULSE 113; TEMP 37.6; O2SAT 98; Ht 157.5 cm; Wt 43.2 kg
[2017-07-18] MEDS ORDERED: LORAZEPAM 2 MG/ML 1 ML VIAL ONE (21:45)
[2017-07-18] MEDS ORDERED: SODIUM CHLORIDE 0.45% 1000ML 1,000 ML IV SCH (22:00)
[2017-07-18] MEDS: CLONAZEPAM 0.5 MG TAB PO SCH (22:00)
[2017-07-18] MEDS: D5W AND NSS 1,000 ML IV SCH (23:15)
--- NOTE | 2017-07-18 23:26 | History and Physical ---
History & Physical Date & Time of Service: Jul 18, 2017 at 20:47 Chief Complaint: Agitation Primary Care Physician: Levy Pyle M.D. History of Present Illness Source: family This pt is a 66 yo female with a h/o MDD w/ psychotic features, severe tardive dyskinesia, CVA, severe microvascular cerebral ischemic changes on MRI, vascular dementia, chronic aspiration, HTN, tremor and Parkinsonism features, hypothyroidism, and urinary retention, who was brought in by family for increased agitation. reports pt has been progressively declining over the last month; a recent video swallow showed significant tracheal aspiration and she was reduced down to a nectar thick liquid diet. It has been quite difficult to get her to take pills even when crushed nad placed in liquid as she sometimes won't drink all the liquid. She has lost weight as well. However, she has been participating in home PT 2-3x/week and it seems her strength has been ok. She did fall yesterday and hit her head as well. Family denies any leg swelling. Pt mostly has echolalia or says yes to if asked if she has pain. Since yesterday, noted she was refusing anything po, and seemed more distressed; her usual constant moaning (from her tardive dyskinesia of the vocal cords) increased in volume. In the ER, she was found to be hypoxic to 88%, and tachycardic in the 110s. reports home PT always checks her POx and even 2 days ago, it remains normal at 97%. CT Chest for PE revealed multiple bilateral subsegmental PEs. There was no PNA, but with some atelectasis. No recent surgeries, not sedentary more than usual. She was started on therapeutic dosing of Lovenox in the ER for PE and will be admitted for further evaluation and treatment. Past Medical/Surgical History PMH: MDD w/ psychotic features Severe tardive dyskinesia H/o CVA H/o severe microvascular cerebral ischemic changes on MRI Vascular dementia Chronic aspiration likely related to tardive dyskinesia HTN Tremor and Parkinsonism Hypothyroidism Urinary retention PSH: Wrist tendonitis repair Shoulder RC repair Some sort of throat cryotherapy in childhood Family History Ovarian cancer Uterine cancer Mom- age 93 from natural causes Dad- age 89, natural causes Sister in middle age of melanoma Brother-committed suicide Uncle-committed suicide Social History Smoking Status: Former Smoker (smoked 1 cigg/day for 1 year in college) Alcohol Use: none Drug Use: none Marital Status: Housing status: lives with family Occupational Status: retired Immunizations History of Influenza Vaccine: N/A History of Tetanus Vaccine?: Unknown History of Pneumococcal: Unknown History of Hepatitis B Vaccine: Unknown Multi-Drug Resistant Organisms History of MDRO: No Allergies Coded Allergies: Clarithromycin (Verified Allergy, Unknown, unknown, 07/18/17) [facility] Doxycycline (Verified Allergy, Unknown, unknown, 07/18/17) [facility] Gabapentin (Verified Allergy, Unknown, UNKNOWN, 07/18/17) Norepinephrine (Verified Adverse Reaction, Unknown, rapid hr, 07/18/17) Home Medications Scheduled Benztropine Mesylate (Benztropine Mesylate), 0.25 MG PO BID Clonazepam (Klonopin), 0.5 MG PO BID Clonazepam (Klonopin), 0.75 MG PO HS Levothyroxine Sodium (Synthroid), 112 MCG PO QAM Olanzapine (Zyprexa), 1.25 MG PO QAM Pimavanserin Tartrate (Nuplazid), 34 MG PO QPM Propranolol Hcl (Inderal), 10 MG PO BID Tamsulosin Hcl (Flomax), 0.4 MG PO QPM Valbenazine Tosylate (Ingrezza), 80 MG PO QPM Venlafaxine Hcl (Effexor Extended Rel), 75 MG PO BID Scheduled PRN Polyethylene Glycol 3350 (Polyethylene Glycol 3350), 17 GM PO QAM PRN for Constipation Review of Systems Constitutional: No fever, No chills Eyes: No problem reported ENT: + trouble swallowing Respiratory: + shortness of breath Cardiovascular: No problem reported Abdomen: + constipation (2 weeks ago, now resolved), No GI bleeding Musculoskeletal: No problem reported Genitourinary - Female: + urinary incontinence, + urinary retention Neurologic: + problem reported (as per HPI) Psychiatric: + depression symptoms Endocrine: No problem reported Hematologic / Lymphatic: No problem reported Integumentary: No problem reported Allergic / Immunologic: No problem reported Physical Exam Vital Signs Date Time Temp Pulse Resp B/P (MAP) Pulse Ox O2 Delivery O2 Flow Rate FiO2 07/18/17 20:09 102 16 116/85 97 Nasal Cannula 2.0 07/18/17 19:40 103 13 98 Nasal Cannula 2.0 07/18/17 19:10 101 14 98 Nasal Cannula 2.0 07/18/17 19:03 101 14 139/105 98 Nasal Cannula 2.0 07/18/17 18:40 108 18 129/81 98 Nasal Cannula 2.0 07/18/17 18:25 105 07/18/17 17:20 111 20 165/89 99 Nasal Cannula 2.0 07/18/17 15:47 98 Nasal Cannula 3.0 07/18/17 15:46 113 16 155/109 98 Nasal Cannula 3.0 07/18/17 14:39 95 Nasal Cannula 3.0 07/18/17 14:31 114 07/18/17 14:30 37.3 110 20 158/110 88 Room Air General Appearance: no apparent distress, + thin (lying in bed, continuously moaning and wailing, staring at the ceiling or the TV on the wall) Head: normocephalic, atraumatic Eyes: normal inspection, PERRL, sclerae normal ENT: + pertinent finding (tongue constantly moving back and forth rapidly) Neck: no adenopathy, trachea midline Respiratory/Chest: no respiratory distress, no accessory muscle use, + crackles (at bases bilat) Cardiovascular: no edema, no gallop, no murmur, normal peripheral pulses, + tachycardia (with reg rhythm) Abdomen/GI: normal bowel sounds, non tender, soft, no organomegaly, no pulsatile mass Back: normal inspection Extremities/Musculoskelatal: normal inspection, no calf tenderness, normal capillary refill, no pedal edema Neurologic/Psych: alert (but does not follow commands, did answer one question with a "yes") Skin: normal color, warm/dry, no rash Diagnostics Laboratory Results Results Past 24 Hours Test 07/18/17 14:46 07/18/17 15:23 07/18/17 15:31 Range/Units Urine Color YELLOW Urine Appearance CLEAR CLEAR Urine pH 6.5 4.5-7.5 Urine Specific [place] 1.021 1.000-1.030 Urine Protein NEG NEG Urine Glucose (UA) NEG NEG Urine Ketones 3+ NEG Urine Occult Blood NEG NEG Urine Nitrite NEG NEG Urine Bilirubin NEG NEG Urine Urobilinogen NEG NEG Urine Leukocyte Esterase NEG NEG Urine WBC (Auto) 1-5 0-5 /hpf Urine RBC (Auto) 0-4 0-4 /hpf Urine Hyaline Casts (Auto) 1-5 0-5 /lpf Urine Epithelial Cells (Auto) 10-20 0-5 /lpf Urine Bacteria (Auto) NEG NEG White Blood Count 12.11 4.8-10.8 K/uL Red Blood Count 4.58 4.2-5.4 M/uL Hemoglobin 15.4 12.0-16.0 g/dL Hematocrit 43.9 37-47 % Mean Corpuscular Volume 95.9 80-100 fL Mean Corpuscular Hemoglobin 33.6 25-34 pg Mean Corpuscular Hemoglobin Concent 35.1 32-36 g/dl Platelet Count 273 130-400 K/uL Mean Platelet Volume 11.0 7.4-10.4 fL Neutrophils (%) (Auto) 80.0 % Lymphocytes (%) (Auto) 10.3 % Monocytes (%) (Auto) 8.9 % Eosinophils (%) (Auto) 0.2 % Basophils (%) (Auto) 0.4 % Neutrophils # (Auto) 9.68 1.4-6.5 K/uL Lymphocytes # (Auto) 1.25 1.2-3.4 K/uL Monocytes # (Auto) 1.08 0.11-0.59 K/uL Eosinophils # (Auto) 0.02 0-0.5 K/uL Basophils # (Auto) 0.05 0-0.2 K/uL RDW Standard Deviation 47.6 36.4-46.3 fL RDW Coefficient of Variation 13.6 11.5-14.5 % Immature Granulocyte % (Auto) 0.2 % Immature Granulocyte # (Auto) 0.03 0.00-0.02 K/uL Erythrocyte Sedimentation Rate 17 0-21 mm/hr Prothrombin Time 10.6 9.0-12.0 SECONDS Prothromb Time International Ratio 1.0 0.9-1.1 Activated Partial Thromboplast Time 24.7 21.0-31.0 SECONDS Partial Thromboplastin Ratio 1.0 Venous Blood pH 7.38 7.36-7.41 Venous Blood Partial Pressure CO2 49 38.0-50.0 mmHg Venous Blood Partial Pressure O2 25 mmHg Venous Blood HCO3 28 mmol/L Venous Blood Oxygen Saturation < 60.0 % Venous Blood Base Excess 2.1 mEq/L Sodium Level 141 136-145 mmol/L Potassium Level 4.5 3.5-5.1 mmol/L Chloride Level 105 98-107 mmol/L Carbon Dioxide Level 28 21-32 mmol/L Anion Gap 8.0 3-11 mmol/L Blood Urea Nitrogen 14 7-18 mg/dl Creatinine 0.61 0.60-1.20 mg/dl Estimated GFR () 108.0 Estimated GFR (Non- 93.1 BUN/Creatinine Ratio 22.7 10-20 Random Glucose 68 70-99 mg/dl Calcium Level 9.1 8.5-10.1 mg/dl Phosphorus Level 2.8 2.5-4.9 mg/dl Magnesium Level 2.5 1.8-2.4 mg/dl Total Bilirubin 0.7 0.2-1 mg/dl Aspartate Amino Transf (AST/SGOT) 40 15-37 U/L Alanine Aminotransferase (ALT/SGPT) 74 12-78 U/L Alkaline Phosphatase 119 45-117 U/L Total Creatine Kinase 39 26-192 U/L Creatine Kinase MB 2.7 0.5-3.6 ng/ml Creatine Kinase MB Ratio 6.9 0-3.0 Troponin I < 0.015 0-0.045 ng/ml C-Reactive Protein < 0.29 0-0.29 mg/dl Pro-B-Type Natriuretic Peptide 151 0-900 pg/ml Total Protein 7.7 6.4-8.2 gm/dl Albumin 3.7 3.4-5.0 gm/dl Globulin 4.0 2.5-4.0 gm/dl Albumin/Globulin Ratio 0.9 0.9-2 Lipase 71 73-393 U/L Bedside Lactic Acid Venous 1.93 0.90-1.70 mmol/L Microbiology Results 07/18/17 Blood Culture, Received Pending 07/18/17 Blood Culture, Received Pending Diagnostic Radiology (CHEST FOR PE) ANGIO WITH CT DOSE: 179.82 mGy.cm HISTORY: Chest pain dyspnea TECHNIQUE: Multiaxial CT images of the chest were performed following the intravenous administration of contrast to evaluate the pulmonary arteries. Maximal intensity projection images were also obtained. A dose lowering technique was utilized adhering to the principles of ALARA. COMPARISON STUDY: None. FINDINGS: There is a normal caliber thoracic aorta with no evidence for dissection. There there are several small third order filling defects of the left and to lesser extent right base. There is no evidence for a central or primary pulmonary embolus. There are scattered atelectatic changes throughout both hemithoraces. The thoracic aorta is normal in course and caliber.. No pleural effusions. No pneumothorax. The liver and spleen are unremarkable. No mediastinal or hilar lymphadenopathy. The central airways are patent. The lungs are clear. IMPRESSION: 1. Study is positive for several very small third order emboli involving the left and to lesser extent right base. 2. No evidence for a central, main, or first order pulmonary embolus. 3. Minimal scattered atelectatic change of both hemithoraces with no well-defined focal infiltrate. CHEST ONE VIEW PORTABLE CLINICAL HISTORY: Sepsis dyspnea COMPARISON STUDY: 08/02/2016 FINDINGS: The bones soft tissues and hemidiaphragms are normal. The cardiomediastinal silhouette is normal. The lungs are clear. The pulmonary vasculature is normal. IMPRESSION: Negative chest. EKG Sinus tach, new Q waves inferiorly, left axis deviation Impression Assessment and Plan This pt is a 66 yo female with a h/o MDD w/ psychotic features, severe tardive dyskinesia, CVA, severe microvascular cerebral ischemic changes on MRI, vascular dementia, chronic aspiration, HTN, tremor and Parkinsonism features, hypothyroidism, and urinary retention, who was brought in by family for increased agitation. reports pt has been progressively declining over the last month; a recent video swallow showed significant tracheal aspiration and she was reduced down to a nectar thick liquid diet. It has been quite difficult to get her to take pills even when crushed and placed in liquid as she sometimes won't drink all the liquid. She has lost weight as well. However, she has been participating in home PT 2-3x/week and it seems her strength has been ok. She did fall yesterday and hit her head as well. Family denies any leg swelling. Pt mostly has echolalia or says yes to if asked if she has pain. Since yesterday, noted she was refusing anything po, and seemed more distressed; her usual constant moaning (from her tardive dyskinesia of the vocal cords) increased in volume. In the ER, she was found to be hypoxic to 88%, and tachycardic in the 110s. reports home PT always checks her POx and even 2 days ago, it remains normal at 97%. CT Chest for PE revealed multiple bilateral subsegmental PEs. There was no PNA, but with some atelectasis. Acute bilateral PEs/Acute hypoxemic respiratory failure-subsegmental, with hypoxic respiratory failure, tachycardia--> No recent surgeries, not sedentary more than usual, although not all that active with her progressively worsening dementia, poor po intake, dramatic weight loss. Could have underlying malignancy but labs fairly normal, recent CT abd/pel normal, CT Chest without evidence of malignancy, UTD and had normal pap earlier this year, mammogram 2015 normal. Is not UTD on colonoscopy and did have severe constipation recently , but not anemic which would be expected with a colon CA. Most likely provoked PE by relative sedentary lifestyle. -Admit to tele for continuous cardiac monitoring -continue Lovenox 1 mg/kg q12h for now -will hirsch out NOAC tomorrow with CM and decide about NOAC vs coumadin--> both will be challenging as quite difficult to have pt take meds, and coumadin would require frequent lab draws -could consider Lovenox for the 6 months of treatment -supplemental O2 -check ECHO -check head CT given fall with head trauma yesterday, increased agitation, and in setting of starting anticoagulation to r/o ICH Tardive dyskinesia/MDD w/ psychosis/Severe dysphagia and aspiration-not able to take any po meds right now-hopefully this will improve back to taking nectar thick liquids with meds in near future, perhaps was refusing po due to hypoxia and SOB? -if not able to take po, will consult Psychiatry to see about other parenteral regimens vs placing NGT vs Palliative measures Severe protein Calorie Malnutrition-secondary to aspiration and dysphagia issues , has lost about 20 lbs in the last 1-2 months as per , BMI 19.2 -Nutrition and Speech consults Parkinsonism,tremor, h/o CVA, Vascular dementia-stable, no longer taking ASA or statin as per as unable to get her to take a lot of meds, stopped them -restart home meds when able to take po -consider Neuro consult if symptoms worse while NPO HTN-controlled -restart propranolol when able to Urinary retention, incontinence-sees Urology -continue FLomax when taking po -can place [facility] for now Proph-Lovenox Dispo-consider Palliative Care consult to discuss goals of care given worsening condition, severe aspiration FULL CODE Level of Care Telemetry Resuscitation Status FULL RESUSCITATION VTE Prophylaxis VTE Risk Assessment Done? Y/N: Yes Risk Level: High Given or contraindicated: Enoxaparin (Lovenox) Social Service Consult Receiving Home Health Additional Copies To Levy Pyle M.D.
[2017-07-18 23:35] VITALS: BP 141/84; PULSE 97; TEMP 36.9; O2SAT 98
[2017-07-19] VITALS (10 sets, daily range): BP systolic 125–152; BP diastolic 76–89; PULSE 89–109; TEMP 36.5–37.2; O2SAT 95–100
[2017-07-19] MEDS: LORAZEPAM 2 MG/ML 1 ML VIAL IV PRN ×2 (05:55→13:20)
[2017-07-19] MEDS ORDERED: LEVOTHYROXINE 112 MCG TAB PO SCH (06:00)
[2017-07-19] MEDS ORDERED: ENOXAPARIN 60 MG/0.6 ML SYR SQ SCH (06:00)
[2017-07-19 06:26] LABS: BASO % 0.2 %; BASO ABS # 0.02 K/uL (0-0.2); COMPLETE YES; EOS % 0.1 %; HEMATOCRIT 34.7 % (37-47); IG% 0.2 %; LYMPH % 12.2 %; LYMPH ABS # 1.54 K/uL (1.2-3.4); MEAN CELL VOLUME 95.3 fL (80-100); MEAN CORPUSCULAR HEMOGLOBIN 34.1 pg (25-34); MEAN CORPUSCULAR HGB CONC 35.7 g/dl (32-36); MEAN PLATELET VOLUME 10.4 fL (7.4-10.4); NEUT % 78.3 %; PLATELET COUNT 225 K/uL (130-400); RED BLOOD COUNT 3.64 M/uL (4.2-5.4); WHITE BLOOD COUNT 12.61 K/uL (4.8-10.8)
--- NOTE | 2017-07-19 06:35 | DIAGNOSTIC IMAGING REPORT ---
HEAD WITHOUT CONTRAST (CT) CLINICAL HISTORY: 66 years-old Female with fall,head trauma. Acute head injury status post fall TECHNIQUE: Multiple axial CT images of the head were obtained without contrast. A dose lowering technique was utilized adhering to the principles of ALARA. CT DOSE: 537.48 mGy.cm COMPARISON: CT head 08/02/2016. FINDINGS: No acute intracranial hemorrhage, midline shift, mass, large territorial ischemia or abnormal extra-axial collection. Mild atrophy with chronic microvascular ischemic changes. Atherosclerotic plaquing at the level of the skull base. The calvarium is intact. The paranasal sinuses, mastoid air cells, and middle ear cavities are clear. IMPRESSION: No acute intracranial abnormality. The above report was generated using voice recognition software. It may contain grammatical, syntax or spelling errors. Electronically signed by: Donell Giang M.D. 07/19/2017 6:34 AM Dictated Date/Time: 07/19/2017 6:33 AM
--- NOTE | 2017-07-19 06:36 | DIAGNOSTIC IMAGING REPORT ---
ULTRASOUND VENOUS DOPPLER LWR EXT BILA CLINICAL HISTORY: Posterior embolism. Leg swelling. COMPARISON STUDY: 06/08/2012 FINDINGS: Real-time and color flow Doppler imaging were performed. Flow was seen within the femoral, popliteal and calf veins with no intraluminal thrombus demonstrated. The saphenous vein is patent. IMPRESSION: No evidence of lower extremity DVT. Electronically signed by: Antonio Levine M.D. 07/19/2017 6:35 AM Dictated Date/Time: 07/19/2017 6:35 AM
[2017-07-19 06:55] LABS: CALCIUM 8.7 mg/dl (8.5-10.1); CREATININE 0.52 mg/dl (0.60-1.20); MAGNESIUM 2.2 mg/dl (1.8-2.4); POTASSIUM 3.7 mmol/L (3.5-5.1)
[2017-07-19 07:04] LABS: THYROID STIMULATING HORMONE 1.38 uIu/ml (0.300-4.500)
[2017-07-19] MEDS: VENLAFAXINE HCL XR 75 MG CAPXR PO SCH ×2 (09:00→21:00)
[2017-07-19] MEDS: BENZTROPINE MESYLATE 0.5 MG TAB PO SCH ×2 (09:00→21:00)
[2017-07-19] MEDS: PROPRANOLOL HCL 10 MG TAB PO SCH ×2 (09:00→21:00)
[2017-07-19] MEDS: OLANZAPINE 2.5 MG TAB PO SCH (09:00)
[2017-07-19] MEDS: CLONAZEPAM 0.5 MG TAB PO SCH ×3 (09:00→21:00)
[2017-07-19] MEDS: LEVOTHYROXINE SODIUM INJ 75 MCG in SYRINGE 0 ML IV SCH (09:32)
--- NOTE | 2017-07-19 09:57 | ECHOCARDIOGRAM REPORT ---
*NOTICE TO RECEIVING [employer] This information is strictly Confidential and protected under [place] law. [place] law prohibits you from making any further disclosure of this information unless further disclosure is expressly permitted by the written consent of the person to whom it pertains or is authorized by law. A general authorization for the release of medical or other information is not sufficient for this purpose. Hospital accepts no responsibility if the information is made available to any other person, INCLUDING THE PATIENT. Interpretation Summary * Name: PENG TAYLOR Study Date: 07/19/2017 06:32 AM BP: 141/84 mmHg * Patient Location: [facility] HR: 98 * : 1950 (M/d/yyyy) Gender: Female Height: 60 in * Age: 66 yrs Ethnicity: [place] Weight: 101 lb * Ordering Physician: Mary Benson * Referring Physician: Self, Referred * Performed By: Carlie Dougherty [facility] * * Reason For Study: PULMONARY EMBOLI * BSA: 1.4 m2 * -- Conclusions -- * 1. Normal left ventricular size and systolic function. EF 60-65%. No regional wall motion abnormalities. Mild concentric left ventricular hypertrophy. Type 1 diastolic dysfunction. * 2. Aortic valve sclerosis mild, without significant aortic valvular stenosis. * 3. Very small right to left inter atrial shunt noted after 4 beats following agitated saline injection, which may suggest PFO. * 4. Normal estimated right ventricular systolic pressure. * 5. Compared to prior study on 08/03/2016, LV systolic function is now 60-65% and pericardial effusion is no longer present. Procedure Details * A complete two-dimensional transthoracic echocardiogram was performed (2D, M-mode, Doppler and color flow Doppler). * A saline contrast injection was performed to assess for cardiac shunting. * The injection was performed through an intravenous line in the left arm. * The attending nurse who injected the saline contrast was JOSE L ROSE RN. * A total of 20 cc of agitated saline was given. Left Ventricle * Normal left ventricular size and systolic function. EF 60-65%. No regional wall motion abnormalities. Mild concentric left ventricular hypertrophy. Type 1 diastolic dysfunction. Right Ventricle * The right ventricle is normal in size and function. * The right ventricular systolic function is normal as assessed by tricuspid annular plane systolic excursion (TAPSE) (normal >1.5 cm). Atria * The left atrial size is normal. * Right atrial size is normal. * Very small right to left inter atrial shunt noted after 4 beats following agitated saline injection, which may suggest PFO. Mitral Valve * The mitral valve is grossly normal. * There is no mitral valve stenosis. * There is trace mitral regurgitation. Tricuspid Valve * The tricuspid valve is not well visualized, but is grossly normal. * There is no tricuspid stenosis. * There is trace tricuspid regurgitation. Aortic Valve * The aortic valve is trileaflet. * Aortic valve sclerosis mild, without significant aortic valvular stenosis. * No hemodynamically significant valvular aortic stenosis. * No aortic regurgitation is present. Pulmonic Valve * The pulmonary valve is inadequately visualized, but the Doppler data is adequate for interpretation. * There is no pulmonic valvular stenosis. * There is no significant pulmonary regurgitation. Great Vessels * The aortic root is normal size. * Aortic arch of normal dimension. * Normal pulmonary venous flow pattern. Pericardium/Pleural * There is no pericardial effusion. Great Vessels * Normal inferior vena cava size and collapsability with sniff indicates a normal right atrial pressure of 3 mmHg MMode 2D Measurements and Calculations IVSd 1.3 cm IVSs 1.5 cm LVIDd 3.6 cm LVIDs 2.4 cm LVPWd 1.2 cm LVPWs 1.2 cm IVS/LVPW 1.0 FS 32.9 % EDV(Teich) 53.8 ml ESV(Teich) 20.2 ml EF(Teich) 62.4 % EDV(cubed) 46.0 ml ESV(cubed) 13.9 ml EF(cubed) 69.8 % % IVS thick 20.2 % % LVPW thick -6.88 % LV mass(C)d 148.6 grams LV mass(C)dI 106.4 grams/m\S\2 LV mass(C)s 96.9 grams LV mass(C)sI 69.4 grams/m\S\2 SV(Teich) 33.5 ml SI(Teich) 24.0 ml/m\S\2 SV(cubed) 32.1 ml SI(cubed) 23.0 ml/m\S\2 Ao root diam 3.0 cm Ao root area 6.9 cm\S\2 ACS 1.7 cm LA dimension 2.8 cm asc Aorta Diam 2.8 cm LA/Ao 0.94 LVOT diam 2.0 cm LVOT area 3.0 cm\S\2 Doppler Measurements and Calculations MV E max garrett 76.6 cm/sec MV A max garrett 86.3 cm/sec MV E/A 0.89 MV P1/2t max garrett 83.7 cm/sec MV P1/2t 62.3 msec MVA(P1/2t) 3.5 cm\S\2 MV dec slope 393.4 cm/sec\S\2 MV dec time 0.19 sec Ao V2 max 170.0 cm/sec Ao max PG 11.6 mmHg Ao max PG (full) 5.4 mmHg Ao V2 mean 119.6 cm/sec Ao mean PG 6.4 mmHg Ao mean PG (full) 3.5 mmHg Ao V2 VTI 33.8 cm SARAY(I,A) 2.0 cm\S\2 SARAY(I,D) 2.0 cm\S\2 SARAY(V,A) 2.2 cm\S\2 SARAY(V,D) 2.2 cm\S\2 LV V1 max PG 6.2 mmHg LV V1 mean PG 2.9 mmHg LV V1 max 124.6 cm/sec LV V1 mean 77.7 cm/sec LV V1 VTI 22.0 cm SV(Ao) 234.4 ml SI(Ao) 167.9 ml/m\S\2 SV(LVOT) 66.4 ml SI(LVOT) 47.6 ml/m\S\2 PA V2 max 96.6 cm/sec PA max PG 3.7 mmHg TR max garrett 190.7 cm/sec RVSP(TR) 17.5 mmHg RAP systole 3.0 mmHg
--- NOTE | 2017-07-19 12:42 | Psychiatric Consultation ---
Psychiatric Consultation Date of Service: Jul 19, 2017. Consultation requested to assist with medication management in a patient with severe tardive dyskinesia. Ms. Aldana is an outpatient of Dr. 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 He last saw her on 07/15/2017 for follow-up. At that time they discussed a second neurological opinion at [facility] which had been previously discussed. She has a history of significant depression with multiple suicide attempts, persecutory delusions and cognitive dysfunction. She responded only marginally to aggressive antipsychotic treatment. She had a series of ECT treatments in 2013 but discontinued due to increasing confusion. She has had significant EPS which may be a side of her antipsychotic medications or according to Dr. Arenas's notes, might be a function of the superimposed Lewy body disease. She has severe tardive dyskinesia and was recently started on Ingrezza. They have been working on tapering down her olanzapine and is currently only on 1.25 mg in the morning. Plan was to work toward alternating every other day in the next 2-4 weeks. Mood has recently shown some improvement and he had switched her extended release Effexor to regular Effexor so that it could be crushed. Previously the patient experienced a decline in her mood when they tried to taper the Effexor. She is on Cogentin for her tardive dyskinesia. They have attempted to taper this in the past which was associated with some worsening of her respiratory dyskinesia. At the time I see the patient and she is lying on her back in bed. Her and daughter are at the bedside. She awakens easily to verbal. She makes good eye contact as I speak with her. When I ask if there is anything she can like to communicate to me after introducing myself, she says no with a somewhat garbled dysarthric voice. At this point she is nothing by mouth as recommended by the speech therapist. They have not yet made a decision about which direction her treatment will go, with possibilities including placement of a PEG tube or palliative care. Certainly she could experience some worsening of her dyskinesias in the absence of her psychiatric medications or discontinuation syndrome being without her Effexor. The sooner a decision can be made about the direction of her care, the sooner we can't make recommendations about her medications. There is certainly nothing that cannot be crushed and Zyprexa can certainly be given inside his form although I am less worried about the Zyprexa. I think she'll be okay for the next 24 hours as the family and the primary team worked to discuss a direction for her care. I am not sure which of her medicines could be compounded into a patch but in the event the family opts not to go with a PEG , we could discuss with pharmacy the option of compounding her medicines into a patch. At this point I will make no recommendations or adjustments on him until the primary team has made a decision about the direction of her care.
[2017-07-19] MEDS: D5W AND NSS 1,000 ML IV SCH (13:18)
--- NOTE | 2017-07-19 15:20 | Hospitalist Progress Note ---
Hospitalist Progress Note Date of Service Jul 19, 2017. Subjective Pt evaluation today including: conversation w/ patient, conversation w/ family , conversation w/ gis consultant (Psychiatry) Voiding: vann catheter in place Pt was agitated and moaning all day and when Speech tried to evaluate her, she wasn't able to swallow at all and fluid had to be "mopped" out of her mouth. Currently, pt recently received ativan IV and has made a remarkable improvement. SHe is lucid, is not making any noises, is able to speak to me and interact but still frequently says "I don't understand." She is not currently moving her tongue much at all. When asked about a PEG tube and discussion of feeds vs aspiration, she says "no" to the feeding tube, but doesn't understand why she says that or what the alternatives to not eating are i.e. . and daughter present and state she is the most lucid they have seen her in a long time. Also, report they're not sure she really aspirates as long as she is eating something she likes; but says biggest problem is that she has been refusing to eat. She moved her bowels last night, had Vann placed for urinary incontinence. NSR on tele. ECHO reviewed and only grade 1 diastolic dysfunction but no significant heart strain on right side All Other Systems: Reviewed and Negative Objective Vital Signs Date Time Temp Pulse Resp B/P (MAP) Pulse Ox O2 Delivery O2 Flow Rate FiO2 07/19/17 12:06 37.2 99 18 125/76 (92) 98 Room Air 07/19/17 11:30 97 Nasal Cannula 2.0 07/19/17 07:43 36.8 89 16 137/77 (97) 100 Room Air 07/19/17 07:30 98 Nasal Cannula 2.0 07/19/17 04:00 99 Nasal Cannula 2.0 07/19/17 00:00 99 Nasal Cannula 2.0 07/18/17 23:35 36.9 97 19 141/84 (103) 98 Nasal Cannula 2.0 07/18/17 21:30 37.6 113 24 143/86 98 Nasal Cannula 2.0 07/18/17 21:04 102 16 116/85 97 07/18/17 20:30 98 Nasal Cannula 2.0 07/18/17 20:09 102 16 116/85 97 Nasal Cannula 2.0 07/18/17 19:40 103 13 98 Nasal Cannula 2.0 07/18/17 19:10 101 14 98 Nasal Cannula 2.0 07/18/17 19:03 101 14 139/105 98 Nasal Cannula 2.0 07/18/17 18:40 108 18 129/81 98 Nasal Cannula 2.0 07/18/17 18:25 105 07/18/17 17:20 111 20 165/89 99 Nasal Cannula 2.0 07/18/17 15:47 98 Nasal Cannula 3.0 07/18/17 15:46 113 16 155/109 98 Nasal Cannula 3.0 Physical Exam General Appearance: no apparent distress, + thin Eyes: normal inspection, sclerae normal ENT: hearing grossly normal Neck: trachea midline Respiratory/Chest: lungs clear, normal breath sounds, no respiratory distress, no accessory muscle use Cardiovascular: regular rate, rhythm, no edema, no gallop, no JVD, no murmur Abdomen: normal bowel sounds, non tender, soft, no organomegaly Extremities: non-tender, normal inspection, no pedal edema, no calf tenderness Neurologic/Psychiatric: alert, + pertinent finding (flat affect, appears suspicious and guarded at times, smiles at her daughter and says "you're sweet. " follows all commands, full strength throughout) Skin: normal color, warm/dry, no rash, + pertinent finding (small superficial abrasion right mid back) Laboratory Results Last 24 Hours Test 07/18/17 15:23 07/18/17 15:31 07/19/17 06:08 White Blood Count 12.11 K/uL 12.61 K/uL Red Blood Count 4.58 M/uL 3.64 M/uL Hemoglobin 15.4 g/dL 12.4 g/dL Hematocrit 43.9 % 34.7 % Mean Corpuscular Volume 95.9 fL 95.3 fL Mean Corpuscular Hemoglobin 33.6 pg 34.1 pg Mean Corpuscular Hemoglobin Concent 35.1 g/dl 35.7 g/dl Platelet Count 273 K/uL 225 K/uL Mean Platelet Volume 11.0 fL 10.4 fL Neutrophils (%) (Auto) 80.0 % 78.3 % Lymphocytes (%) (Auto) 10.3 % 12.2 % Monocytes (%) (Auto) 8.9 % 9.0 % Eosinophils (%) (Auto) 0.2 % 0.1 % Basophils (%) (Auto) 0.4 % 0.2 % Neutrophils # (Auto) 9.68 K/uL 9.89 K/uL Lymphocytes # (Auto) 1.25 K/uL 1.54 K/uL Monocytes # (Auto) 1.08 K/uL 1.13 K/uL Eosinophils # (Auto) 0.02 K/uL 0.01 K/uL Basophils # (Auto) 0.05 K/uL 0.02 K/uL RDW Standard Deviation 47.6 fL 48.0 fL RDW Coefficient of Variation 13.6 % 13.8 % Immature Granulocyte % (Auto) 0.2 % 0.2 % Immature Granulocyte # (Auto) 0.03 K/uL 0.02 K/uL Erythrocyte Sedimentation Rate 17 mm/hr Prothrombin Time 10.6 SECONDS Prothromb Time International Ratio 1.0 Activated Partial Thromboplast Time 24.7 SECONDS Partial Thromboplastin Ratio 1.0 Venous Blood pH 7.38 Venous Blood Partial Pressure CO2 49 mmHg Venous Blood Partial Pressure O2 25 mmHg Venous Blood HCO3 28 mmol/L Venous Blood Oxygen Saturation < 60.0 % Venous Blood Base Excess 2.1 mEq/L Sodium Level 141 mmol/L 143 mmol/L Potassium Level 4.5 mmol/L 3.7 mmol/L Chloride Level 105 mmol/L 109 mmol/L Carbon Dioxide Level 28 mmol/L 24 mmol/L Anion Gap 8.0 mmol/L 9.0 mmol/L Blood Urea Nitrogen 14 mg/dl 15 mg/dl Creatinine 0.61 mg/dl 0.52 mg/dl Estimated GFR () 108.0 113.8 Estimated GFR (Non- 93.1 98.2 BUN/Creatinine Ratio 22.7 29.0 Random Glucose 68 mg/dl 107 mg/dl Calcium Level 9.1 mg/dl 8.7 mg/dl Phosphorus Level 2.8 mg/dl Magnesium Level 2.5 mg/dl 2.2 mg/dl Total Bilirubin 0.7 mg/dl Aspartate Amino Transf (AST/SGOT) 40 U/L Alanine Aminotransferase (ALT/SGPT) 74 U/L Alkaline Phosphatase 119 U/L Total Creatine Kinase 39 U/L Creatine Kinase MB 2.7 ng/ml Creatine Kinase MB Ratio 6.9 Troponin I < 0.015 ng/ml C-Reactive Protein < 0.29 mg/dl Pro-B-Type Natriuretic Peptide 151 pg/ml Total Protein 7.7 gm/dl Albumin 3.7 gm/dl Globulin 4.0 gm/dl Albumin/Globulin Ratio 0.9 Lipase 71 U/L Bedside Lactic Acid Venous 1.93 mmol/L Est Creatinine Clear Calc Drug Dose 70.6 ml/min Thyroid Stimulating Hormone (TSH) 1.380 uIu/ml Assessment and Plan This pt is a 66 yo female with a h/o MDD w/ psychotic features, severe tardive dyskinesia, CVA, severe microvascular cerebral ischemic changes on MRI, vascular dementia, chronic aspiration, HTN, tremor and Parkinsonism features, hypothyroidism, and urinary retention, who was brought in by family for increased agitation. reports pt has been progressively declining over the last month; a recent video swallow showed significant tracheal aspiration and she was reduced down to a nectar thick liquid diet. It has been quite difficult to get her to take pills even when crushed and placed in liquid as she sometimes won't drink all the liquid. She has lost weight as well. However, she has been participating in home PT 2-3x/week and it seems her strength has been ok. She did fall the day prior to admission and hit her head but head CT here negative. Family denies any leg swelling. Pt mostly has echolalia or says yes to if asked if she has pain. 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 In the ER, she was found to be hypoxic to 88%, and tachycardic in the 110s. reports home PT always checks her POx and even 2 days ago, it remains normal at 97%. CT Chest for PE revealed multiple bilateral subsegmental PEs. There was no PNA, but with some atelectasis. Acute bilateral PEs/Acute hypoxemic respiratory failure-subsegmental, with hypoxic respiratory failure, tachycardia--> No recent surgeries, not sedentary more than usual, although not all that active with her progressively worsening dementia, poor po intake, dramatic weight loss. Could have underlying malignancy but labs fairly normal, recent CT abd/pel normal, CT Chest without evidence of malignancy, UTD and had normal pap earlier this year, mammogram 2015 normal. Is not UTD on colonoscopy and did have severe constipation recently , but not anemic which would be expected with a colon CA. Most likely provoked PE by relative sedentary lifestyle. ECHO with grade 1 diastolic dysfunction, no right heart strain -Admit to tele for continuous cardiac monitoring-no events--> transfer to medical floor today -continue Lovenox and given inconsistency with taking po, will likely recommend Lovenox 1.5mg/kg (60mg) SQ once daily-daughter willing to give the shots at home x 6 months -will switch over to the 60mg SQ once daily now and check a XA level on 07/21 given low body weight to make sure in therapeutic range -supplemental O2 and wean as tolerated Tardive dyskinesia/MDD w/ psychosis/Severe dysphagia and aspiration-not able to take any po meds right now-hopefully this will improve back to taking nectar thick liquids with meds in near future, perhaps was refusing po due to hypoxia and SOB. ALso likely refusing to eat as part of progressive dementia. Discussed with family and pt today who is not able to comprehend. Surprisingly, with IV ativan, her tardive dyskinesia is remarkably improved and sh eis bale to speak and not making any noises. feels she will be able to eat safely without aspirating if she continues on like this - consult Psychiatry to see about other regimens while not taking po to replace her Psych meds but unfortunately not many alternatives -consider Ativan SL 0.5mg po q4-6 hours -appreciate Psychiatry Severe protein Calorie Malnutrition-secondary to aspiration and dysphagia issues , has lost about 20 lbs in the last 1-2 months as per , BMI 17.4 -Nutrition and Speech consults appreciated -reevaluate Speech eval now that ativan helping reduce tongue movements Parkinsonism,tremor, h/o CVA, Vascular dementia-stable, no longer taking ASA or statin as per as unable to get her to take a lot of meds, stopped them -restart home meds when able to take po -consider Neuro consult if symptoms worse while NPO HTN-controlled -restart propranolol when able to Urinary retention, incontinence-sees Urology -continue FLomax when taking po -can place Vann for now Proph-Lovenox Dispo-consider Palliative Care consult to discuss goals of care given worsening condition, severe aspiration--> discussed with Family today and undecided, would like to see Speech reevaluate first and think more about PEG tube if unable to keep up with nutritional demands FULL CODE
[2017-07-19] MEDS: LORAZEPAM INJ 0.5 MG in SYRINGE 0.75 ML IV PRN (19:30)
[2017-07-19] MEDS ORDERED: ENOXAPARIN 40 MG/0.4 ML SYR SQ ONE (21:00)
[2017-07-19] MEDS: TAMSULOSIN HCL 0.4 MG CAP PO SCH (21:00)
[2017-07-20] MEDS: LORAZEPAM INJ 0.5 MG in SYRINGE 0.75 ML IV PRN ×3 (01:18→21:57)
[2017-07-20] MEDS: D5W AND NSS 1,000 ML IV SCH ×2 (01:21→15:57)
[2017-07-20 05:49] LABS: BASO % 0.3 %; BASO ABS # 0.02 K/uL (0-0.2); COMPLETE YES; EOS % 0.6 %; HEMATOCRIT 32.2 % (37-47); IG% 0.3 %; LYMPH % 19.9 %; LYMPH ABS # 1.37 K/uL (1.2-3.4); MEAN CELL VOLUME 95.3 fL (80-100); MEAN CORPUSCULAR HEMOGLOBIN 31.7 pg (25-34); MEAN CORPUSCULAR HGB CONC 33.2 g/dl (32-36); MEAN PLATELET VOLUME 10.7 fL (7.4-10.4); NEUT % 67.9 %; PLATELET COUNT 219 K/uL (130-400); RED BLOOD COUNT 3.38 M/uL (4.2-5.4); WHITE BLOOD COUNT 6.88 K/uL (4.8-10.8)
[2017-07-20 06:27] LABS: BUN/CREATININE RATIO 36.7 (10-20); CALCIUM 8.2 mg/dl (8.5-10.1); CREATININE 0.4 mg/dl (0.60-1.20); PHOSPHORUS 1.5 mg/dl (2.5-4.9); POTASSIUM 3.3 mmol/L (3.5-5.1); PREALBUMIN 12.5 mg/dl (20-40)
[2017-07-20 06:28] LABS: MAGNESIUM 2.4 mg/dl (1.8-2.4)
[2017-07-20] MEDS ORDERED: NURSING VERBAL MED ORDER ONE (07:00)
[2017-07-20] MEDS ORDERED: POTASSIUM PHOSPHATE INJ 15 MMOL in SODIUM CHLORIDE 0.9% 250ML 250 ML IV ONE (07:15)
[2017-07-20 07:35] VITALS: BP 120/73; PULSE 82; TEMP 37.5; O2SAT 100
[2017-07-20] MEDS: BENZTROPINE MESYLATE 0.5 MG TAB PO SCH ×2 (08:10→21:56)
[2017-07-20] MEDS: PROPRANOLOL HCL 10 MG TAB PO SCH ×2 (08:10→21:57)
[2017-07-20] MEDS: VENLAFAXINE HCL XR 75 MG CAPXR PO SCH ×2 (08:10→21:56)
[2017-07-20] MEDS: CLONAZEPAM 0.5 MG TAB PO SCH ×3 (08:10→21:57)
[2017-07-20] MEDS: OLANZAPINE 2.5 MG TAB PO SCH (08:11)
[2017-07-20] MEDS: LEVOTHYROXINE SODIUM INJ 75 MCG in SYRINGE 0 ML IV SCH (08:33)
[2017-07-20] MEDS: ENOXAPARIN 60 MG/0.6 ML SYR SQ SCH (08:34)
--- NOTE | 2017-07-20 11:04 | Gastrointestinal Consultation ---
Gastrointestinal Consultation Date of Consultation: Jul 20, 2017 Attending Physician: Derik Consulting Physician: Gualberto Reason for Consultation: ?PEG History of Present Illness Patient is a 66 year old female w/ PMH significant for depression, psychosis, tardive dyskinesia and dementia who presented through the ED for evaluation of alerted mental status. Head CT, Chest XR negative. Blood cultures prelimiary report with coag negative staph, chest CTA with small emboli. GI was consulted for PEG tube request. Pt was seen and evaluated, chart reviewed. Family is at bedside. Pt is quite agitated prior to my arrival - she is groaning. ROS not obtained due to pt mental status. Pt is not answering questions appropriately, but she does look towards her daughter and say "I love you." History is gathered from pt daughter and . They note progressive decrease in appetite and difficulty swallowing over the past month. notes that his was often never hungry, and notes that she began having issues with swallowing so started to feed her softer, easier to chew foods. About two months ago, he notes that she was not tolerating soft foods, and had started his on a clear liquid diet, which she tolerated well up until about 1 week ago. Pt notes for the past week, pt has been quite agitated and refusing all PO intake, water, food and medications. tells me his has a living will, which he believes states no tubes, but he is power of county attorney and is unsure if he would like PEG tube placed to assist in feeding. NSAIDs: none Hx ABD surgery: none Weight loss: yes ROS: not obtained Head CT: no acute changes Chest CTA: Study is positive for several very small third order emboli involving the left and to lesser extent right base. No evidence for a central, main, or first order pulmonary embolus. Minimal scattered atelectatic change of both hemithoraces with no well-defined focal infiltrate. Chest XR: negative Past Medical/Surgical History Medical Problems: (1) Abnormal ECG Status: Acute (2) Aspiration into airway Status: Acute (3) Hypoxia Status: Acute (4) Psychogenic polydipsia Status: Acute (5) Pulmonary emboli Status: Acute (6) Tachycardia Status: Acute Past Medical History: depression, psychosis, TD, H/O CVA, dementia, chronic aspiration, hypothyroidism , HTN, urinary retention Past Surgical History: unspecified shoulder repair Family History Ovarian cancer Uterine cancer Social History Smoking Status: Former Smoker (smoked 1 cigg/day for 1 year in college) Drug Use: none Marital Status: Housing Status: lives with family Occupation Status: retired Allergies Coded Allergies: Clarithromycin (Verified Allergy, Unknown, unknown, 07/18/17) [facility] Doxycycline (Verified Allergy, Unknown, unknown, 07/18/17) [facility] Gabapentin (Verified Allergy, Unknown, UNKNOWN, 07/18/17) Lactose. (Verified Allergy, Unknown, GI SYMPTOMS, 07/19/17) Protein Milk (Verified Allergy, Unknown, GI SYMPTOMS, 07/19/17) Norepinephrine (Verified Adverse Reaction, Unknown, rapid hr, 07/18/17) Current Medications Home Meds and Scripts Medications Dose Route/Sig Max Daily Dose Days Date Category Nuplazid (Pimavanserin Tartrate) 17 Mg Tab 34 Mg PO QPM 07/18/17 Reported Effexor Extended Rel (Venlafaxine Hcl) 75 Mg Capcr 75 Mg PO BID 07/18/17 Reported Benztropine Mesylate 0.5 Mg Tab 0.25 Mg PO BID 07/18/17 Reported Inderal (Propranolol Hcl) 10 Mg Tab 10 Mg PO BID 07/18/17 Reported Polyethylene Glycol 3350 1 Pow Pow 17 Gm PO QAM PRN 07/06/17 Reported Ingrezza (Valbenazine Tosylate) 40 Mg Cap 80 Mg PO QPM 07/06/17 Reported Zyprexa (Olanzapine) 2.5 Mg Tab 1.25 Mg PO QAM 07/06/17 Reported Synthroid (Levothyroxine Sodium) 112 Mcg Tab 112 Mcg PO QAM 07/06/17 Reported Klonopin (Clonazepam) 0.5 Mg Tab 0.75 Mg PO HS 07/06/17 Reported Klonopin (Clonazepam) 0.5 Mg Tab 0.5 Mg PO BID 07/06/17 Reported Flomax (Tamsulosin Hcl) 0.4 Mg Cap 0.4 Mg PO QPM 08/02/16 Reported Physical Exam Date Time Temp Pulse Resp B/P (MAP) Pulse Ox O2 Delivery O2 Flow Rate FiO2 07/20/17 08:00 Nasal Cannula 3.0 07/20/17 07:35 37.5 82 18 120/73 (89) 100 Nasal Cannula 3.0 07/20/17 00:00 Nasal Cannula 2.0 07/19/17 23:54 36.7 109 18 152/76 (101) 95 Room Air 07/19/17 18:32 36.5 102 18 147/89 (108) 98 Nasal Cannula 2.5 07/19/17 17:29 37.2 99 18 98 2.0 07/19/17 16:00 98 Nasal Cannula 2.0 07/19/17 12:06 37.2 99 18 125/76 (92) 98 Room Air 07/19/17 11:30 97 Nasal Cannula 2.0 General Appearance: + moderate distress (groaning in bed, non-commincative and not responding to questions), + thin, + pertinent finding (ill appearing) Eyes: PERRL ENT: hearing grossly normal Neck: supple Respiratory/Chest: chest non-tender, no respiratory distress, no accessory muscle use, + crackles (bilateral expiratory) Cardiovascular: regular rate, rhythm Abdomen: normal bowel sounds, soft, no organomegaly Neurologic/Psych: + disoriented, + pertinent finding (pt with flat affect, noncommunicative to me, but has talked to daughter) Skin: normal color, warm/dry Laboratory Results Last 24 Hours Test 07/20/17 05:12 White Blood Count 6.88 K/uL Red Blood Count 3.38 M/uL Hemoglobin 10.7 g/dL Hematocrit 32.2 % Mean Corpuscular Volume 95.3 fL Mean Corpuscular Hemoglobin 31.7 pg Mean Corpuscular Hemoglobin Concent 33.2 g/dl Platelet Count 219 K/uL Mean Platelet Volume 10.7 fL Neutrophils (%) (Auto) 67.9 % Lymphocytes (%) (Auto) 19.9 % Monocytes (%) (Auto) 11.0 % Eosinophils (%) (Auto) 0.6 % Basophils (%) (Auto) 0.3 % Neutrophils # (Auto) 4.67 K/uL Lymphocytes # (Auto) 1.37 K/uL Monocytes # (Auto) 0.76 K/uL Eosinophils # (Auto) 0.04 K/uL Basophils # (Auto) 0.02 K/uL RDW Standard Deviation 48.7 fL RDW Coefficient of Variation 14.1 % Immature Granulocyte % (Auto) 0.3 % Immature Granulocyte # (Auto) 0.02 K/uL Sodium Level 146 mmol/L Potassium Level 3.3 mmol/L Chloride Level 115 mmol/L Carbon Dioxide Level 25 mmol/L Anion Gap 6.0 mmol/L Blood Urea Nitrogen 15 mg/dl Creatinine 0.40 mg/dl Est Creatinine Clear Calc Drug Dose 91.8 ml/min Estimated GFR () 124.0 Estimated GFR (Non- 107.0 BUN/Creatinine Ratio 36.7 Random Glucose 127 mg/dl Calcium Level 8.2 mg/dl Phosphorus Level 1.5 mg/dl Magnesium Level 2.4 mg/dl Total Bilirubin 0.4 mg/dl Direct Bilirubin 0.1 mg/dl Aspartate Amino Transf (AST/SGOT) 14 U/L Alanine Aminotransferase (ALT/SGPT) 34 U/L Alkaline Phosphatase 74 U/L Total Protein 5.8 gm/dl Albumin 2.7 gm/dl Prealbumin 12.5 mg/dl Impression Patient is a 66 year old female with hx of dementia, depression and psychosis who presented to the ED for alerted mental status with her family - per family pt has been agitated and refusing all PO intake x 1 week. There is report of progressive dysphagia and intolerance to PO intake over the the course of the past 6 months with associated weight loss. No change in bowel habits, no black/ bloody stools. GI was consulted to discuss PEG tube placement candidacy. Risks/ benefits of PEG tube were discussed with pt and her family, family verbalized understanding. They understand risk of peritonitis if tube would be dislodged, they understand tube placement does not eliminate risk of aspiration. They are not sure how they want to proceed with tube placement "I don't think she would even let me feed her through the tube" Plan - Diet per speech recommendation - family understands risk associated with PO intake - Palliate care consulted, await recommendation.. - KUB to rule out constipation - Suggest 20 mg PPI BID - Suggest follow up blood cultures - Suggest urine cultures - Please call with any questions or concerns, GI will watch peripherally - please call if pt/family would like to proceed with PEG tube I performed a history and physical examination of the patient, I have discussed the patient's management with Trice. Please refer to the PA's note for the documented findings and plan of care. Spoke to the at bedside and explained to him in details regarding risk, benefit, alternatives of the PEG tube, risk includes peritonitis and severe sepsis due to buried bumper, infection and bleeding. Explained risk of aspiration. He seems reluctant to it. Hope patient may recovr from the acute episode and go back to her baseline feeding. Meanwhile he is contemplating palliative care as the patient did not want any invasive measures in the past. Continue current supportive care. Please recall GI once patients clinical status is stable and family agrees.
[2017-07-20] MEDS ORDERED: SCOPOLAMINE 1.5 MG TDSY TD SCH (12:00)
--- NOTE | 2017-07-20 14:20 | DIAGNOSTIC IMAGING REPORT ---
KUB CLINICAL HISTORY: hx constipation, decreased appetite, rule out severe fecal burden pain. COMPARISON STUDY: 07/05/2017 FINDINGS: Improved exam compared to the prior study. Increased fecal load primarily within the colon on the prior study is diminished. There is mild contrast within the colon as well as bladder. There are no secondary signs of free air. IMPRESSION: 1. Persistent increase in fecal load within the colon although this is improved from the prior exam.. 2. Mild residual fecal impaction. 3. No evidence for small bowel distention or obstructive change. The above report was generated using voice recognition software. It may contain grammatical, syntax or spelling errors. Electronically signed by: Uriel Figueroa M.D. 07/20/2017 2:19 PM Dictated Date/Time: 07/20/2017 2:17 PM
--- NOTE | 2017-07-20 15:44 | Progress Note ---
Subjective Date of Service: Jul 20, 2017. Subjective Pt evaluation today including: conversation w/ patient, physical exam, chart review, lab review, review of studies, review of inpatient medication list and daughter at bedside Moaning and catatonic Thick secretions suctioned today Problem List Medical Problems: (1) Abnormal ECG Status: Acute (2) Aspiration into airway Status: Acute (3) Hypoxia Status: Acute (4) Psychogenic polydipsia Status: Acute (5) Pulmonary emboli Status: Acute (6) Tachycardia Status: Acute Review of Systems Unable to obtain at this time Objective Vital Signs Date Time Temp Pulse Resp B/P (MAP) Pulse Ox O2 Delivery O2 Flow Rate FiO2 07/20/17 08:00 Nasal Cannula 3.0 07/20/17 07:35 37.5 82 18 120/73 (89) 100 Nasal Cannula 3.0 07/20/17 00:00 Nasal Cannula 2.0 07/19/17 23:54 36.7 109 18 152/76 (101) 95 Room Air 07/19/17 18:32 36.5 102 18 147/89 (108) 98 Nasal Cannula 2.5 07/19/17 17:29 37.2 99 18 98 2.0 07/19/17 16:00 98 Nasal Cannula 2.0 Physical Exam General Appearance: WD/WN, + mild distress Eyes: normal inspection, PERRL, EOMI, sclerae normal Neck: supple, no adenopathy, thyroid normal, no JVD Respiratory/Chest: chest non-tender, + decreased breath sounds, + wheezing Cardiovascular: no edema, no gallop, no JVD, no murmur Abdomen: normal bowel sounds, non tender, soft, no organomegaly Neurologic/Psychiatric: no motor/sensory deficits, + depressed affect, + pertinent finding (catatonia) Skin: normal color, warm/dry, no rash Lymphatic: no adenopathy Laboratory Results Last 24 Hours Test 07/20/17 05:12 White Blood Count 6.88 K/uL Red Blood Count 3.38 M/uL Hemoglobin 10.7 g/dL Hematocrit 32.2 % Mean Corpuscular Volume 95.3 fL Mean Corpuscular Hemoglobin 31.7 pg Mean Corpuscular Hemoglobin Concent 33.2 g/dl Platelet Count 219 K/uL Mean Platelet Volume 10.7 fL Neutrophils (%) (Auto) 67.9 % Lymphocytes (%) (Auto) 19.9 % Monocytes (%) (Auto) 11.0 % Eosinophils (%) (Auto) 0.6 % Basophils (%) (Auto) 0.3 % Neutrophils # (Auto) 4.67 K/uL Lymphocytes # (Auto) 1.37 K/uL Monocytes # (Auto) 0.76 K/uL Eosinophils # (Auto) 0.04 K/uL Basophils # (Auto) 0.02 K/uL RDW Standard Deviation 48.7 fL RDW Coefficient of Variation 14.1 % Immature Granulocyte % (Auto) 0.3 % Immature Granulocyte # (Auto) 0.02 K/uL Sodium Level 146 mmol/L Potassium Level 3.3 mmol/L Chloride Level 115 mmol/L Carbon Dioxide Level 25 mmol/L Anion Gap 6.0 mmol/L Blood Urea Nitrogen 15 mg/dl Creatinine 0.40 mg/dl Est Creatinine Clear Calc Drug Dose 91.8 ml/min Estimated GFR () 124.0 Estimated GFR (Non- 107.0 BUN/Creatinine Ratio 36.7 Random Glucose 127 mg/dl Calcium Level 8.2 mg/dl Phosphorus Level 1.5 mg/dl Magnesium Level 2.4 mg/dl Total Bilirubin 0.4 mg/dl Direct Bilirubin 0.1 mg/dl Aspartate Amino Transf (AST/SGOT) 14 U/L Alanine Aminotransferase (ALT/SGPT) 34 U/L Alkaline Phosphatase 74 U/L Total Protein 5.8 gm/dl Albumin 2.7 gm/dl Prealbumin 12.5 mg/dl Assessment and Plan This pt is a 66 yo female with a h/o MDD w/ psychotic features, severe tardive dyskinesia, CVA, severe microvascular cerebral ischemic changes on MRI, vascular dementia, chronic aspiration, HTN, tremor and Parkinsonism features, hypothyroidism, and urinary retention, who was brought in by family for increased agitation. reports pt has been progressively declining over the last month; a recent video swallow showed significant tracheal aspiration and she was reduced down to a nectar thick liquid diet. It has been quite difficult to get her to take pills even when crushed and placed in liquid as she sometimes won't drink all the liquid. She has lost weight as well. However, she has been participating in home PT 2-3x/week and it seems her strength has been ok. She did fall the day prior to admission and hit her head but head CT here negative. Family denies any leg swelling. Pt mostly has echolalia or says yes to if asked if she has pain. Since the day FLASK FITTER, noted she was refusing anything po, and seemed more distressed; her usual constant moaning ( from her tardive dyskinesia of the vocal cords) increased in volume. In the ER, she was found to be hypoxic to 88%, and tachycardic in the 110s. reports home PT always checks her POx and even 2 days ago, it remains normal at 97%. CT Chest for PE revealed multiple bilateral subsegmental PEs. There was no PNA, but with some atelectasis. Acute bilateral PEs/Acute hypoxemic respiratory failure-subsegmental, with hypoxic respiratory failure, tachycardia--> No recent surgeries, not sedentary more than usual, although not all that active with her progressively worsening dementia, poor po intake, dramatic weight loss. Could have underlying malignancy but labs fairly normal, recent CT abd/pel normal, CT Chest without evidence of malignancy, UTD and had normal pap earlier this year, mammogram 2015 normal. Is not UTD on colonoscopy and did have severe constipation recently , but not anemic which would be expected with a colon CA. Most likely provoked PE by relative sedentary lifestyle. ECHO with grade 1 diastolic dysfunction, no right heart strain -Admit to tele for continuous cardiac monitoring-no events--> transferred to medical floor 07/19 -continue Lovenox and given inconsistency with taking po, will likely recommend Lovenox 1.5mg/kg (60mg) SQ once daily-daughter willing to give the shots at home x 6 months -will switch over to the 60mg SQ once daily now and check a XA level on 07/21 given low body weight to make sure in therapeutic range -supplemental O2 and wean as tolerated Tardive dyskinesia/MDD w/ psychosis/Severe dysphagia and aspiration-not able to take any po meds right now-hopefully this will improve back to taking nectar thick liquids with meds in near future, perhaps was refusing po due to hypoxia and SOB. ALso likely refusing to eat as part of progressive dementia. Discussed with family and pt today who is not able to comprehend. Improved initially with IV ativan but has now regressed back to her baseline catatonic state. - Ativan PRN -Appreciate Psychiatry recs Severe protein Calorie Malnutrition-secondary to aspiration and dysphagia issues , has lost about 20 lbs in the last 1-2 months as per , BMI 17.4 -Nutrition and Speech consults appreciated -QUALITY ASSURANCE COORDINATOR assessment likely to aspirate, keep NPO at this time, GI consulted, poor candidate for PEG tube - Family will discuss with palliative care today Parkinsonism,tremor, h/o CVA, Vascular dementia-stable, no longer taking ASA or statin as per as unable to get her to take a lot of meds, stopped them -restart home meds when able to take po -consider Neuro consult if symptoms worse while NPO HTN-controlled -restart propranolol when able to Urinary retention, incontinence-sees Urology -continue Flomax when taking po -can place [facility] for now Proph-Lovenox FULL CODE
[2017-07-20] MEDS: CHECK SCOPOLAMINE PATCH PLACEMENT SCH (15:46)
--- NOTE | 2017-07-20 15:58 | Palliative Care Consultation ---
Consultation Date of Consultation: Jul 20, 2017. Requesting Physician: Dr. More Attending Physician: Dr. More Reason for Consultation: Goals of care History of Present Illness This 66 year old female patient with PMH major depressive disorder with psychosis and tardive dyskinesia, CVA, dementia, aspiration, and others listed below, presented to the hospital three days ago with c/o decreased oral intake, weakness, fall, worsening tardive dyskinesia, and increased mental distress. History obtained from report and family. Upon arrival she was noted to have bilateral pulmonary embolism on CT chest, no pneumonia but did have some atelectasis. She is on Lovenox, therapeutic dosing. Has not been able to take any PO medications due to the dyskinesia and inability to swallow. states that when she is in her normal state of mind she is able to swallow without difficulty, but her behaviors seem to be what makes her aspirate or to not even attempt to swallow at all. Patient did have a video swallow study done in the past which showed aspiration. Psychiatry is following, but difficult to make medication changes as patient is not swallowing. The issue of PEG tube placement has surfaced, patient's family is unsure of whether or not the patient would want to have that done. , Kavon, states that patient made a living will about 20 years ago that stated she would not want to have it done , but recently she has given mixed answers. Yesterday, patient had a very good day after being given lorazepam, seemed cognisant. At that time she voiced to the and doctor that she did not want the PEG, but then to the daughter said that she would. Now today she is back to being in an almost catatonic state , with constant moaning. She is not even managing her own secretions at this point. GI was consulted for their input on PEG tube placement. Palliative care consulted to establish goals of care. I met with the patient, her Kavon, and her daughter in room 289-2. Patient is lying in bed with eyes open, constant moaning with gurgling of secretions in throat, but in no distress. She would not answer my questions, look at me, or follow commands. However, of note I did see patient lean over for her daughter to give her a kiss. , daughter and I went to another room to talk. Kavon and daughter state that patient has been progressively worsening over the last couple months. Her tardive dyskinesia is worsening, patient is not eating/drinking and has been losing weight. He states that the patient has never been much of an eater and says that she is not hungry. In recent times, Kavon would tell her that if she didn't eat that she would continue to get worse and could even and patient would reply, "I don't care , that's fine." Kavon and the daughter both agreed that they do not want to see the patient suffer, but it is just difficult for them to see her not eat/drink and wither away. We talked about PEG tube placement and they are aware that it would not make the patient's mental state any better and that statistics have not shown PEG tubes to prolong life or increase quality of life. GI physician and RECYCLE DRIVER were then present in room and went over PEG placement in detail. Patient's and daughter would like some time to discuss and think about this. Past Medical/Surgical History Medical History: Major depressive disorder w/ psychotic features Severe tardive dyskinesia CVA Severe microvascular cerebral ischemic changes on MRI Vascular dementia Chronic aspiration likely related to tardive dyskinesia HTN Tremor and Parkinsonism Hypothyroidism Urinary retention Past Surgical History: Wrist tendonitis repair Rotator cuff repair Social History Smoking Status: Former Smoker (smoked 1 cigg/day for 1 year in college) History of Alcohol Use: No Drug Use: none Marital Status: Housing Status: lives with family Occupation Status: retired Review of Systems unable to obtain due to patient's mental status Allergies Coded Allergies: Clarithromycin (Verified Allergy, Unknown, unknown, 07/18/17) Apparcando Doxycycline (Verified Allergy, Unknown, unknown, 07/18/17) Apparcando Gabapentin (Verified Allergy, Unknown, UNKNOWN, 07/18/17) Lactose. (Verified Allergy, Unknown, GI SYMPTOMS, 07/19/17) Protein Milk (Verified Allergy, Unknown, GI SYMPTOMS, 07/19/17) Norepinephrine (Verified Adverse Reaction, Unknown, rapid hr, 07/18/17) Medications Current Inpatient Medications Medications (Trade) Dose Ordered Sig/Wm Route Start Time Stop Time Status Last Admin Dose Admin Ioversol (Optiray 320) 100 ml UD PRN IV 07/18/17 16:30 07/22/17 16:29 Polyethylene (Miralax Powder Packet) 17 gm DAILY PRN PO 07/18/17 20:45 08/17/17 20:44 Clonazepam (Klonopin Tab) 0.5 mg BID@0900,1400 PO 07/19/17 09:00 08/18/17 08:59 Clonazepam (Klonopin Tab) 0.75 mg HS PO 07/18/17 22:00 08/17/17 21:59 Olanzapine (Zyprexa Tab) 1.25 mg QAM PO 07/19/17 09:00 08/18/17 08:59 Propranolol HCl (Inderal Tab) 10 mg BID PO 07/18/17 21:00 08/17/17 20:59 Tamsulosin HCl (Flomax Cap) 0.4 mg QPM PO 07/18/17 21:00 08/17/17 20:59 Venlafaxine HCl (effeXOR EXTENDED REL CAP) 75 mg BID PO 07/18/17 21:00 08/17/17 20:59 Miscellaneous Information (Order Awaiting Action) 1 ea QS N/A 07/18/17 21:30 08/17/17 21:29 Miscellaneous Information (Order Awaiting Action) 1 ea QS N/A 07/18/17 21:30 08/17/17 21:29 Lorazepam (Ativan Inj) 0.5 mg Q6H PRN IV 07/18/17 20:45 08/17/17 20:44 07/19/17 13:20 0.5 MG Dextrose/Sodium Chloride 1,000 ml @ 75 mls/hr [id number] IV 07/18/17 23:15 08/17/17 23:14 07/20/17 01:21 75 MLS/HR Levothyroxine Sodium 75 mcg/ Syringe 3.75 ml @ 2 mls/min DAILY@09 IV 07/19/17 09:00 08/18/17 08:59 07/20/17 08:33 2 MLS/MIN Enoxaparin Sodium (Lovenox Inj) 60 mg QAM SQ 07/20/17 09:00 08/19/17 08:59 07/20/17 08:34 60 MG Lorazepam 0.5 mg/ Syringe 1 ml @ 0.5 mls/min Q6 PRN IV 07/19/17 19:15 08/18/17 19:14 07/20/17 01:18 0.5 MLS/MIN Scopolamine (Transderm-Scop Patch) 1.5 mg Q3D@0900 TD 07/20/17 12:00 08/19/17 11:59 07/20/17 12:49 1.5 MG Miscellaneous (Remove Transderm-Scop Patch) 1 ea Q3D@0859 N/A 07/23/17 08:59 08/22/17 08:58 Miscellaneous Information (Check Scopolamine Patch Placement) 1 ea QS N/A 07/20/17 16:00 08/19/17 15:59 Benztropine Mesylate (Cogentin Tab) 0.25 mg BID PO 07/20/17 21:00 08/19/17 20:59 Physical Exam Date Time Temp Pulse Resp B/P (MAP) Pulse Ox O2 Delivery O2 Flow Rate FiO2 07/20/17 08:00 Nasal Cannula 3.0 07/20/17 07:35 37.5 82 18 120/73 (89) 100 Nasal Cannula 3.0 07/20/17 00:00 Nasal Cannula 2.0 07/19/17 23:54 36.7 109 18 152/76 (101) 95 Room Air 07/19/17 18:32 36.5 102 18 147/89 (108) 98 Nasal Cannula 2.5 07/19/17 17:29 37.2 99 18 98 2.0 07/19/17 16:00 98 Nasal Cannula 2.0 General Appearance: + cachetic, + thin ENT: hearing grossly normal Neck: supple, no JVD Respiratory: no respiratory distress, no accessory muscle use, + rhonchi ( coarse/moist throughout), + pertinent finding (but does have increased secretions in throat ) Cardiovascular: regular rate, rhythm, no edema, + normal peripheral pulses Abdomen: normal bowel sounds, non tender, soft Neurologic/Psychiatric: alert, + pertinent finding (no verbal response) Skin: normal color Laboratory Results Last 24 Hours Test 07/20/17 05:12 White Blood Count 6.88 K/uL Red Blood Count 3.38 M/uL Hemoglobin 10.7 g/dL Hematocrit 32.2 % Mean Corpuscular Volume 95.3 fL Mean Corpuscular Hemoglobin 31.7 pg Mean Corpuscular Hemoglobin Concent 33.2 g/dl Platelet Count 219 K/uL Mean Platelet Volume 10.7 fL Neutrophils (%) (Auto) 67.9 % Lymphocytes (%) (Auto) 19.9 % Monocytes (%) (Auto) 11.0 % Eosinophils (%) (Auto) 0.6 % Basophils (%) (Auto) 0.3 % Neutrophils # (Auto) 4.67 K/uL Lymphocytes # (Auto) 1.37 K/uL Monocytes # (Auto) 0.76 K/uL Eosinophils # (Auto) 0.04 K/uL Basophils # (Auto) 0.02 K/uL RDW Standard Deviation 48.7 fL RDW Coefficient of Variation 14.1 % Immature Granulocyte % (Auto) 0.3 % Immature Granulocyte # (Auto) 0.02 K/uL Sodium Level 146 mmol/L Potassium Level 3.3 mmol/L Chloride Level 115 mmol/L Carbon Dioxide Level 25 mmol/L Anion Gap 6.0 mmol/L Blood Urea Nitrogen 15 mg/dl Creatinine 0.40 mg/dl Est Creatinine Clear Calc Drug Dose 91.8 ml/min Estimated GFR () 124.0 Estimated GFR (Non- 107.0 BUN/Creatinine Ratio 36.7 Random Glucose 127 mg/dl Calcium Level 8.2 mg/dl Phosphorus Level 1.5 mg/dl Magnesium Level 2.4 mg/dl Total Bilirubin 0.4 mg/dl Direct Bilirubin 0.1 mg/dl Aspartate Amino Transf (AST/SGOT) 14 U/L Alanine Aminotransferase (ALT/SGPT) 34 U/L Alkaline Phosphatase 74 U/L Total Protein 5.8 gm/dl Albumin 2.7 gm/dl Prealbumin 12.5 mg/dl Assessment & Plan Palliative Performance Scale: 20 % Problem list: Altered mental status Tardive dyskinesia Major depressive disorder with psychosis Weakness Aspiration risk, NPO Weight loss/failure to thrive Bilateral PEs Hx dementia, CVA, aspiration Goals of care (Z51.5) Palliative care recs: discussed with patient's Kavon, daughter, and Dr. More. -For now, continue current medical management. -Patient's and daughter would like time to think about PEG placement. -We discussed different options of care: placing PEG tube and feeding through it , as well as risks of PEG vs. no PEG tube, focusing on comfort, treating symptomatically and continuing psych treatment as tolerated. The hope would be that if patient improved enough to eat, that she could do so on her own free will. She may or may not, family understands. - had questions about where patient could go after hospitalization. We discussed home with hospice or home health (depending on goal) and private pay caregivers vs. SNF placement. He would prefer to take patient home. -Lung sounds coarse. Consider chest x-ray. -KUB x-ray was done- showed increased fecal load/constipation, no obstruction. Recommend enema. -Patient is not going to have neurology consult per Dr. More. Would go ahead and give lorazepam as ordered. -May need suctioning of secretions. Thank you kindly for this consult. I will follow.
[2017-07-20 16:00] VITALS: O2SAT 92
[2017-07-20 16:01] VITALS: BP 158/94; PULSE 105; TEMP 36.8; O2SAT 94
[2017-07-20] MEDS: SOD PHOSPHATE/SOD BIPHOSPHATE ENEMA 132 ML BTL PR SCH (18:10)
[2017-07-20] MEDS: TAMSULOSIN HCL 0.4 MG CAP PO SCH (21:56)
[2017-07-20 23:52] VITALS: PULSE 89; TEMP 37.4; O2SAT 92
[2017-07-21] MEDS: CHECK SCOPOLAMINE PATCH PLACEMENT SCH ×3 (00:21→17:07)
[2017-07-21] MEDS: D5W AND NSS 1,000 ML IV SCH ×2 (04:50→17:07)
[2017-07-21] MEDS: LORAZEPAM INJ 0.5 MG in SYRINGE 0.75 ML IV PRN ×2 (04:51→12:11)
[2017-07-21 04:53] VITALS: BP 136/75; PULSE 56; TEMP 37; O2SAT 95
[2017-07-21] MEDS: SOD PHOSPHATE/SOD BIPHOSPHATE ENEMA 132 ML BTL PR SCH ×3 (05:46→11:33)
[2017-07-21 07:25] VITALS: BP 131/73; PULSE 52; TEMP 37.7; O2SAT 94
[2017-07-21] MEDS: VENLAFAXINE HCL XR 75 MG CAPXR PO SCH ×2 (08:11→20:17)
[2017-07-21] MEDS: BENZTROPINE MESYLATE 0.5 MG TAB PO SCH ×2 (08:11→20:17)
[2017-07-21] MEDS: OLANZAPINE 2.5 MG TAB PO SCH (08:11)
[2017-07-21] MEDS: PROPRANOLOL HCL 10 MG TAB PO SCH ×2 (08:11→20:44)
[2017-07-21] MEDS: CLONAZEPAM 0.5 MG TAB PO SCH ×3 (08:11→20:44)
[2017-07-21] MEDS: LEVOTHYROXINE SODIUM INJ 75 MCG in SYRINGE 0 ML IV SCH (08:37)
[2017-07-21] MEDS: ENOXAPARIN 60 MG/0.6 ML SYR SQ SCH (08:38)
--- NOTE | 2017-07-21 11:31 | Palliative Care Progress Note ---
Palliative Care Progress Note Date of Service Jul 21, 2017. Subjective Pt evaluation today including: conversation w/ patient, conversation w/ family , physical exam, conversation w/ [employer] bi consultant Pain: "no" PO Intake: none since Wednesday Voiding: vann catheter in place -Patient had three doses of 0.5mg Ativan since yesterday at 1546. She is improved today and spoke to me. -Still moaning continuously, but I did note that when I approached room and no one was with patient, she was silent. -Patient spoke to me today. She stated she was having no pain. When I asked if she remembered the conversation about feeding tube she said yes. She said "no" when I asked if she rosie want a feeding tube. I asked if she wanted to go home. She said, "Yes, home." I asked if she was hungry or thirsty, she said no. -I went back to the room when patient's and daughter were present. confirmed that he wants to take patient home with hospice and wants comfort measures only. -Patient has less gurgling of secretions today. Lungs are more clear. Review of Systems full ROS not able to be obtained due to patient condition Objective Vital Signs Date Time Temp Pulse Resp B/P (MAP) Pulse Ox O2 Delivery O2 Flow Rate FiO2 07/21/17 08:00 Room Air 07/21/17 07:25 37.7 52 18 131/73 (92) 94 Room Air 07/21/17 04:53 37.0 56 18 136/75 (95) 95 07/21/17 00:00 Room Air 07/20/17 23:52 37.4 89 22 92 Room Air 07/20/17 16:01 36.8 105 26 158/94 (115) 94 Room Air 07/20/17 16:00 92 Room Air Physical Exam General Appearance: + cachetic, + thin ENT: hearing grossly normal Neck: supple, no JVD Respiratory/Chest: lungs clear, no respiratory distress, no accessory muscle use Cardiovascular: regular rate, rhythm, no edema, + normal peripheral pulses Abdomen: normal bowel sounds, soft Neurologic/Psychiatric: alert, + pertinent finding (orientation difficult to assess,but patient did answer questions) Skin: normal color Assessment and Plan Problem list: Altered mental status Tardive dyskinesia Major depressive disorder with psychosis Weakness Aspiration risk, NPO Weight loss/failure to thrive Bilateral PEs Hx dementia, CVA, aspiration Goals of care (Z51.5) Palliative care recs: discussed with patient's Kavon, patient and Dr. More. -Goal is for comfort. -No PEG tube or feeding tube to be placed. -Kavon wants to take patient home with hospice. He will need additional care through private pay agencies. Patient stated "yes" when asked if she wanted to go home and stated, "no" when asked if she would want a feeding tube. -Patient said no to pain, hunger, or thirst. -Kavon is okay with comfort feeding if patient is agreeable to taking anything by mouth, despite risk of aspiration. -Need to choose hospice agency, casey saw operator aware. -Patient will need suction in the home for pooling of secretions. -Increase Ativan to 0.5mg Q4h PRN and please change to sublingual. Would even consider just making it scheduled. Could increase to 1mg if needed. -Continue scopolamine patch and add atropine 1% oph soln 4 drops Q1h PRN secretions. -We discussed Lovenox-- will continue while patient is in hospital. Lovenox to be discontinued upon discharge. 's request. Thank you again for this consult. Please contact me with any further palliative care needs. Palliative Performance Scale: 20 % Discharge planning: home with Hospice
--- NOTE | 2017-07-21 14:18 | Progress Note ---
Subjective Date of Service: Jul 21, 2017. Subjective Pt evaluation today including: conversation w/ patient, physical exam, chart review, lab review, review of studies, review of inpatient medication list Pt laying in bed Was able to speak minimally upon interview and entered catatonic state Pt did tell palliative care nurse she did not want PEG tube and wanted to go home No distress noted from pt Problem List Medical Problems: (1) Abnormal ECG Status: Acute (2) Aspiration into airway Status: Acute (3) Hypoxia Status: Acute (4) Psychogenic polydipsia Status: Acute (5) Pulmonary emboli Status: Acute (6) Tachycardia Status: Acute Review of Systems Unable to obtain Objective Vital Signs Date Time Temp Pulse Resp B/P (MAP) Pulse Ox O2 Delivery O2 Flow Rate FiO2 07/21/17 08:00 Room Air 07/21/17 07:25 37.7 52 18 131/73 (92) 94 Room Air 07/21/17 04:53 37.0 56 18 136/75 (95) 95 07/21/17 00:00 Room Air 07/20/17 23:52 37.4 89 22 92 Room Air 07/20/17 16:01 36.8 105 26 158/94 (115) 94 Room Air 07/20/17 16:00 92 Room Air Physical Exam General Appearance: WD/WN, + mild distress Eyes: normal inspection, PERRL, EOMI, sclerae normal Neck: supple, no adenopathy, thyroid normal, no JVD Respiratory/Chest: chest non-tender, lungs clear, + decreased breath sounds, + wheezing Cardiovascular: no edema, no gallop, no JVD, no murmur Abdomen: normal bowel sounds, non tender, soft, no organomegaly Extremities: normal range of motion, non-tender, normal inspection, no pedal edema Neurologic/Psychiatric: no motor/sensory deficits, + depressed affect, + disoriented Laboratory Results Last 24 Hours Test 07/21/17 13:00 Assessment and Plan This pt is a 66 yo female with a h/o MDD w/ psychotic features, severe tardive dyskinesia, CVA, severe microvascular cerebral ischemic changes on MRI, vascular dementia, chronic aspiration, HTN, tremor and Parkinsonism features, hypothyroidism, and urinary retention, who was brought in by family for increased agitation. reports pt has been progressively declining over the last month; a recent video swallow showed significant tracheal aspiration and she was reduced down to a nectar thick liquid diet. It has been quite difficult to get her to take pills even when crushed and placed in liquid as she sometimes won't drink all the liquid. She has lost weight as well. However, she has been participating in home PT 2-3x/week and it seems her strength has been ok. She did fall the day prior to admission and hit her head but head CT here negative. Family denies any leg swelling. Pt mostly has echolalia or says yes to if asked if she has pain. Since the day [employer], noted she was refusing anything po, and seemed more distressed; her usual constant moaning ( from her tardive dyskinesia of the vocal cords) increased in volume. In the ER, she was found to be hypoxic to 88%, and tachycardic in the 110s. reports home PT always checks her POx and even 2 days ago, it remains normal at 97%. CT Chest for PE revealed multiple bilateral subsegmental PEs. There was no PNA, but with some atelectasis. Acute bilateral PEs/Acute hypoxemic respiratory failure-subsegmental, with hypoxic respiratory failure, tachycardia--> No recent surgeries, not sedentary more than usual, although not all that active with her progressively worsening dementia, poor po intake, dramatic weight loss. Could have underlying malignancy but labs fairly normal, recent CT abd/pel normal, CT Chest without evidence of malignancy, UTD and had normal pap earlier this year, mammogram 2015 normal. Is not UTD on colonoscopy and did have severe constipation recently , but not anemic which would be expected with a colon CA. Most likely provoked PE by relative sedentary lifestyle. ECHO with grade 1 diastolic dysfunction, no right heart strain -Admit to [facility] for continuous cardiac monitoring-no events--> transferred to medical floor 07/19 -continue Lovenox and given inconsistency with taking po, will likely recommend Lovenox 1.5mg/kg (60mg) SQ once daily-daughter willing to give the shots at home x 6 months -will switch over to the 60mg SQ once daily now and check a XA level on 07/21 given low body weight to make sure in therapeutic range -supplemental O2 and wean as tolerated -MADE COMFORT MEASURES on 07/21, instructed that we would only continue ativan, scopalamine on DC. Pt and family also aware that pt is allowed to feed despite risk of aspiration. Home hospice agency contacted. Tardive dyskinesia/MDD w/ psychosis/Severe dysphagia and aspiration-not able to take any po meds right now-hopefully this will improve back to taking nectar thick liquids with meds in near future, perhaps was refusing po due to hypoxia and SOB. ALso likely refusing to eat as part of progressive dementia. Discussed with family and pt today who is not able to comprehend. Improved initially with IV ativan but has now regressed back to her baseline catatonic state. - Ativan PRN -Appreciate Psychiatry recs Severe protein Calorie Malnutrition-secondary to aspiration and dysphagia issues , has lost about 20 lbs in the last 1-2 months as per , BMI 17.4 -Nutrition and Speech consults appreciated -ROUTEMAN assessment likely to aspirate, keep NPO at this time, GI consulted, poor candidate for PEG tube - Family will discuss with palliative care today Parkinsonism,tremor, h/o CVA, Vascular dementia-stable, no longer taking ASA or statin as per as unable to get her to take a lot of meds, stopped them -restart home meds when able to take po -consider Neuro consult if symptoms worse while NPO HTN-controlled -restart propranolol when able to Urinary retention, incontinence-sees Urology -continue Flomax when taking po -can place [facility] for now Proph-Lovenox FULL CODE Discharge planning: home with Hospice
[2017-07-21] MEDS: LORAZEPAM 0.5 MG TAB SL PRN ×2 (17:07→21:32)
[2017-07-21] MEDS: TAMSULOSIN HCL 0.4 MG CAP PO SCH (20:44)
[2017-07-22] MEDS: CHECK SCOPOLAMINE PATCH PLACEMENT SCH ×2 (00:02→08:16)
[2017-07-22] MEDS: LORAZEPAM 0.5 MG TAB SL PRN ×2 (05:20→13:47)
[2017-07-22] MEDS: D5W AND NSS 1,000 ML IV SCH (05:42)
[2017-07-22] MEDS: VENLAFAXINE HCL XR 75 MG CAPXR PO SCH (07:44)
[2017-07-22] MEDS: PROPRANOLOL HCL 10 MG TAB PO SCH (07:44)
[2017-07-22] MEDS: BENZTROPINE MESYLATE 0.5 MG TAB PO SCH (07:44)
[2017-07-22] MEDS: OLANZAPINE 2.5 MG TAB PO SCH (07:45)
[2017-07-22] MEDS: CLONAZEPAM 0.5 MG TAB PO SCH ×2 (07:45→13:19)
[2017-07-22] MEDS: ENOXAPARIN 60 MG/0.6 ML SYR SQ SCH ×2 (07:45→13:43)
[2017-07-22] MEDS: LEVOTHYROXINE SODIUM INJ 75 MCG in SYRINGE 0 ML IV SCH (09:24)
[2017-07-22] MEDS ORDERED: SCOP1.5D2 TD (12:33)
[2017-07-22] MEDS ORDERED: ATV5 SL (12:33)
--- NOTE | 2017-07-22 12:39 | Discharge Instructions ---
Discharge Instructions Date of Service Jul 22, 2017. Admission Reason for Admission: Acute Pulmonary Embolism Discharge Discharge Diagnosis / Problem: Pulmonary embolism, comfort care Discharge Goals Goal(s): Decrease discomfort, Improve function, Increase independence, Improve disease control, Improve nutritional status, Learn about illness Activity Recommendations Activity Limitations: resume your previous activity Exercise/Sports Limitations: as tolerated . Instructions / Follow-Up Instructions / Follow-Up Patient to be discharged with home hospice Patient to only continue with scopolamine patch 1.5 mg patch to apply every 3 days in addition to ativan 0.5 mg tablet to apply sublingual Prescriptions sent to pharmacy Further recommendations per hospice agency For quality of life, family is agreeable to permissive aspiration. The following is recommended to decrease aspiration risk with intake: 1. Full liquid diet, nectar thick 2. Strict aspiration precautions, NO straws. Fully upright when feeding and for 30 minutes after meals. Do not lay flat, head of bed to be elevated to 30 degrees at all times. 3. Small sips. Watch/cue for the swallow. Discontinue feeding with any coughing or signs of discomfort when eating and re-approach at a later time. 4. Stringent oral care to include brushing all surfaces of the mouth and tongue before and after meals, and before bed. This will reduce oral bacteria that can be aspirated in saliva. 5. May benefit from hospice speech therapy as indicated for further family education/training in the home. Current Hospital Diet Patient's current hospital diet: Full Liquid Diet Discharge Diet Recommended Diet: Full Liquid Diet Liquid Consistency: [place] Thick Pending Studies Studies pending at discharge: no Medical Emergencies . Who to Call and When: Medical Emergencies: If at any time you feel your situation is an emergency, please call 911 immediately. . Non-Emergent Contact Non-Emergency issues call your: Primary Care Provider Call Non-Emergent contact if: you have any medication questions . . "Provider Documentation" section prepared by Matthew More. . VTE Core Measure Inpt VTE Proph given/why not?: Enoxaparin (Lovenox)SQ
[2017-07-22 13:20] VITALS: BP 131/73; PULSE 52; TEMP 37.7; O2SAT 94
--- NOTE | 2017-07-22 14:17 | Discharge Summary ---
Discharge Summary Date of Service Jul 22, 2017. Discharge Summary Admission Date: Jul 18, 2017 at 20:35 Discharge Date: Jul 22, 2017 Discharge Disposition: Home with services Principal Diagnosis: Tardive dyskinesia, comfort measures Immunizations: Have You Had Influenza Vaccine: N/A History of Tetanus Vaccine?: Unknown History of Pneumococcal: Unknown History of Hepatitis B Vaccine: Unknown Consultations: Palliative Care Psychiatry Medication Reconciliation New Medications: Lorazepam (Lorazepam) 0.5 Mg Tab 0.5 MG SL Q4H PRN for ANXIETY/AGITATION, #30 TAB Scopolamine (Transderm-Scop) 1 Mg/3 Days Dis 1.5 MG TD Q3D@0900, #10 PATCH Discontinued Medications: Benztropine Mesylate (Benztropine Mesylate) 0.5 Mg Tab 0.25 MG PO BID Clonazepam (Klonopin) 0.5 Mg Tab 0.5 MG PO BID, TAB Clonazepam (Klonopin) 0.5 Mg Tab 0.75 MG PO HS, TAB Levothyroxine Sodium (Synthroid) 112 Mcg Tab 112 MCG PO QAM, TAB Olanzapine (Zyprexa) 2.5 Mg Tab 1.25 MG PO QAM, TAB Pimavanserin Tartrate (Nuplazid) 17 Mg Tab 34 MG PO QPM Polyethylene Glycol 3350 (Polyethylene Glycol 3350) 1 Pow Pow 17 GM PO QAM PRN for Constipation, #527 GM Propranolol Hcl (Inderal) 10 Mg Tab 10 MG PO BID, TAB Tamsulosin Hcl (Flomax) 0.4 Mg Cap 0.4 MG PO QPM, CAP Valbenazine Tosylate (Ingrezza) 40 Mg Cap 80 MG PO QPM Venlafaxine Hcl (Effexor Extended Rel) 75 Mg Capcr 75 MG PO BID, CAP Discharge Exam Review of Systems: Constitutional: No fever, No chills, No sweats, No weakness Eyes: No worsening of vision, No eye pain, No redness, No discharge ENT: + trouble swallowing Respiratory: No cough, No sputum, No wheezing, No shortness of breath, No dyspnea on exertion Cardiovascular: No chest pain, No orthopnea, No PND, No edema Abdomen: No pain, No nausea, No vomiting, No diarrhea, No constipation Musculoskeletal: No joint pain, No muscle pain, No swelling, No calf pain Genitourinary - Female: No dysuria, No urinary frequency, No urinary urgency , No urinary incontinence Neurologic: No memory loss, No paralysis, No vertigo, No balance problems Psychiatric: + depression symptoms, No anhedonism, No anxiety, No insomnia Endocrine: No fatigue, No excessive thirst, No excessive urination Integumentary: No rash, No itch Physical Exam: General Appearance: WD/WN, + mild distress Eyes: normal inspection, PERRL, EOMI, sclerae normal Neck: supple, no adenopathy, thyroid normal, no JVD Respiratory/Chest: chest non-tender, no accessory muscle use, + decreased breath sounds, + crackles Cardiovascular: no edema, no gallop, no JVD, no murmur Abdomen / GI: normal bowel sounds, non tender, soft, no organomegaly Extremities: normal inspection, no calf tenderness, normal capillary refill , no pedal edema Neurologic/Psychiatric: no motor/sensory deficits, alert, normal mood/affect , + disoriented Skin: normal color, warm/dry, no rash Lymphatic: no adenopathy Hospital Course This pt is a 66 yo female with a h/o MDD w/ psychotic features, severe tardive dyskinesia, CVA, severe microvascular cerebral ischemic changes on MRI, vascular dementia, chronic aspiration, HTN, tremor and Parkinsonism features, hypothyroidism, and urinary retention, who was brought in by family for increased agitation. reports pt has been progressively declining over the last month; a recent video swallow showed significant tracheal aspiration and she was reduced down to a nectar thick liquid diet. It has been quite difficult to get her to take pills even when crushed and placed in liquid as she sometimes won't drink all the liquid. She has lost weight as well. However, she has been participating in home PT 2-3x/week and it seems her strength has been ok. She did fall the day prior to admission and hit her head but head CT here negative. Family denies any leg swelling. Pt mostly has echolalia or says yes to if asked if she has pain. Since the day [employer], noted she was refusing anything po, and seemed more distressed; her usual constant moaning ( from her tardive dyskinesia of the vocal cords) increased in volume. In the ER, she was found to be hypoxic to 88%, and tachycardic in the 110s. reports home PT always checks her POx and even 2 days ago, it remains normal at 97%. CT Chest for PE revealed multiple bilateral subsegmental PEs. There was no PNA, but with some atelectasis. Acute bilateral PEs/Acute hypoxemic respiratory failure-subsegmental, with hypoxic respiratory failure, tachycardia--> No recent surgeries, not sedentary more than usual, although not all that active with her progressively worsening dementia, poor po intake, dramatic weight loss. Could have underlying malignancy but labs fairly normal, recent CT abd/pel normal, CT Chest without evidence of malignancy, UTD and had normal pap earlier this year, mammogram 2015 normal. Is not UTD on colonoscopy and did have severe constipation recently , but not anemic which would be expected with a colon CA. Most likely provoked PE by relative sedentary lifestyle. ECHO with grade 1 diastolic dysfunction, no right heart strain -Admit to tele for continuous cardiac monitoring-no events--> transferred to medical floor 07/19 -continue Lovenox and given inconsistency with taking po, will likely recommend Lovenox 1.5mg/kg (60mg) SQ once daily-daughter willing to give the shots at home x 6 months -will switch over to the 60mg SQ once daily now and check a XA level on 07/21 given low body weight to make sure in therapeutic range -supplemental O2 and wean as tolerated -MADE COMFORT MEASURES on 07/21, instructed that we would only continue ativan, scopalamine on DC. Pt and family also aware that pt is allowed to feed despite risk of aspiration. Home hospice agency contacted. Discharge with home hospice on 07/22 Tardive dyskinesia/MDD w/ psychosis/Severe dysphagia and aspiration-not able to take any po meds right now-hopefully this will improve back to taking nectar thick liquids with meds in near future, perhaps was refusing po due to hypoxia and SOB. ALso likely refusing to eat as part of progressive dementia. Discussed with family and pt today who is not able to comprehend. Improved initially with IV ativan but has now regressed back to her baseline catatonic state. - Ativan PRN -Appreciate Psychiatry recs Severe protein Calorie Malnutrition-secondary to aspiration and dysphagia issues , has lost about 20 lbs in the last 1-2 months as per , BMI 17.4 -Nutrition and Speech consults appreciated -[employer] AND [employer] assessment likely to aspirate, keep NPO at this time, GI consulted, poor candidate for PEG tube - Family will discuss with palliative care today Parkinsonism,tremor, h/o CVA, Vascular dementia-stable, no longer taking ASA or statin as per as unable to get her to take a lot of meds, stopped them -restart home meds when able to take po -consider Neuro consult if symptoms worse while NPO HTN-controlled -restart propranolol when able to Urinary retention, incontinence-sees Urology -continue Flomax when taking po -can place [facility] for now Proph-Lovenox FULL CODE Total Time Spent: Greater than 30 minutes This includes examination of the patient, discharge planning, medication reconciliation, and communication with other providers. Discharge Instructions Please refer to the electronic Patient Visit Report (Discharge Instructions) for additional information. Additional Copies To Levy Pyle M.D.
== END 2017-07-22 14:11 | disposition hospice, home (50) | DRG 175 ==
LOC: EDBD 14:18 → C.EDC 14:19 → C.2T 20:35 → ENRESERV 20:50 → C.MED 07-19 17:55
PROVIDERS: ADMIT Family Medicine; ATTEND Hospitalist
DX: I26.99 Other pulmonary embolism without acute cor pulmonale (principal); J96.01 Acute respiratory failure with hypoxia; E43 Unspecified severe protein-calorie malnutrition; Z68.1 Body mass index [BMI] 19.9 or less, adult; F32.3 Major depressive disorder, single episode, severe with psychotic features; Z51.5 Encounter for palliative care; G24.01 Drug induced subacute dyskinesia; I69.991 Dysphagia following unspecified cerebrovascular disease; R13.10 Dysphagia, unspecified; G20 Parkinson's disease; F01.50 Vascular dementia, unspecified severity, without behavioral disturbance, psychotic disturbance, mood disturbance, and anxiety; I10 Essential (primary) hypertension; R33.9 Retention of urine, unspecified; R32 Unspecified urinary incontinence; E03.9 Hypothyroidism, unspecified; Z79.899 Other long term (current) drug therapy; Z88.1 Allergy status to other antibiotic agents; Z80.41 Family history of malignant neoplasm of ovary; Z80.49 Family history of malignant neoplasm of other genital organs; Z80.8 Family history of malignant neoplasm of other organs or systems; Z81.8 Family history of other mental and behavioral disorders

== ENCOUNTER 2024-01-18 10:57 | Inpatient (IN) ==
[2024-01-18] MEDS: SODIUM CHLORIDE 0.9% 1,000 ML IV STA (11:18)
[2024-01-18] MEDS: cefTRIAXone SODIUM 2,000 MG/50 ML BAG IV STA (11:19)
--- NOTE | 2024-01-18 11:42 | Emergency Department Note ---
Impression & Plan Bacteremia due to Gram-negative bacteria, Urinary tract infection ED Provider Note NAME: PENG SOLIS AGE: 73 SEX: F : 1950 ARRIVES VIA: Walk-In INFORMANT: Patient, the patient's significant other ED PROVIDER(S): Brandon Nance DO CHIEF COMPLAINT: Gram-negative bacteremia HPI: The patient is a 73-year-old female who presented to the emergency department at our request. The patient was seen yesterday in our facility. She was diagnosed with urinary tract infection. She has a history of a cystocele and bladder prolapse. The patient was seen in our facility and started on IV antibiotics. She was doing better according to her family members but her blood cultures came back positive for gram-negative bacilli. She was called by our emergency department and told to return to the emergency department for further evaluation. According to the patient's family member she has been doing much better. She is able to stand upright without difficulty. She has not had any episodes of fever or rigors. They have not had the opportunity to follow-up with primary care physician as of yet. ROS: See above HPI for pertinent positives & negatives. A total of 10 systems reviewed and were otherwise negative. PAST MEDICAL HISTORY: See Below PAST SURGICAL HISTORY: See Below FAMILY HISTORY: See Below SOCIAL HISTORY: See Below HOME MEDICATIONS: See Below ALLERGIES: See Below VITALS: See Below PHYSICAL EXAMINATION: GENERAL: Patient is awake alert in no acute distress patient is resting comfortably and showing no signs of anxiety EYES: The conjunctivae are clear. The pupils are round and reactive. EARS, NOSE, MOUTH AND THROAT: The nose is without any evidence of any deformity. NECK: The neck is nontender and supple. RESPIRATORY: Normal respiratory effort is noted there is no evidence of wheezing rhonchi or rales CARDIOVASCULAR: Regular rate and rhythm noted there no murmurs rubs or gallops normal S1 normal S2. GASTROINTESTINAL: The abdomen is soft. Abdomen is nontender. MUSCULOSKELETAL/EXTREMITIES: There is no evidence of gross deformity full range of motion is noted in the hips and shoulders. SKIN: There is no obvious evidence of any rash. There are no petechiae, pallor or cyanosis noted. NEUROLOGIC: The patient is awake alert and oriented to person and place. She does recognize her family members. MEDICAL DECISION MAKING: The patient is a 73-year-old female that I cared for yesterday for urinary tract infection and rigors. The patient has a positive blood culture for gram- negative bacilli. She was called and told to return to the emergency department because of bacteremia. I discussed the patient's laboratory results with her. Given her bacteremia I discussed her condition with the on-call [facility] hospitalist. The patient was treated with another dose of Rocephin as well as IV fluids in the emergency department. She was much more clinically improved on my reevaluation today compared to yesterday. Triage Nursing notes reviewed. Prior medical records reviewed Vital Signs: reviewed and remarkable for no significant abnormalities Differential diagnosis: Viral syndrome, otitis, pharyngitis, pneumonia, influenza, meningitis, urinary tract infection, sepsis, bacteremia, as well as other pathologies. ER treatment provided: See below Diagnostics interpreted by me: ECG: none Cardiac Monitoring: An order was placed for continuous cardiac monitoring. The monitor shows a rate of 70 bpm with sinus rhythm. Laboratory studies: As stated above and show below. Imaging studies: See below. Consultation(s): I discussed this case with Dr. Hendricks who [facility] Past Med/Surg History Medical History Hypothyroidism Dementia Social History Smoking Status: Never smoker Preferred Language: Slovak Feels Safe at Home: Yes Allergies Allergies Allergy/AdvReac Type Severity Reaction Status Date / Time clarithromycin Allergy Unknown unknown Verified 02/02/20 17:37 doxycycline Allergy Unknown unknown Verified 02/02/20 17:37 gabapentin Allergy Unknown UNKNOWN Verified 02/02/20 17:37 Milk Containing Products Allergy Unknown GI SYMPTOMS Verified 02/02/20 17:37 (Dairy) [Milk Containing Products] norepinephrine AdvReac Unknown rapid hr Verified 02/02/20 17:37 Lactose. Allergy Unknown GI SYMPTOMS Uncoded 02/02/20 17:37 Home Meds Home Medications Medication Instructions Recorded Confirmed Passion Flower 1 tab PO DAILY 02/02/20 01/18/24 diphenhydramine 25 1 tab PO HS PRN Sleep 02/02/20 01/18/24 mg-acetaminophen 500 mg tablet (Tylenol PM Extra Strength) levothyroxine 112 mcg tablet 137 mcg PO DAILY 02/02/20 01/18/24 (Synthroid) lorazepam 1 mg tablet (Ativan) 0.5 - 1 mg PO TID PRN Anxiety 02/02/20 01/18/24 Previous Rx's Medication Instructions Recorded Saccharomyces boulardii 250 mg 250 mg PO BID #28 caps 02/02/20 capsule (Florastor) cefdinir 300 mg capsule 300 mg PO BID 7 days #14 caps 01/17/24 Results & Data (ED) Vital Signs Vital Signs - 24 hr 01/18/24 10:59 01/18/24 11:28 01/18/24 11:39 Temperature 36.7 C Temperature Source Temporal Artery Scan Pulse Rate 77 80 72 Pulse Rate [Apical] Pulse Rate from SpO2 Sensor 79 72 Pulse Rhythm [Apical] Pulse Strength [Apical] Respiratory Rate 20 19 21 Respiratory Effort / Characteristics Non-Labored Spontaneous Respiratory Depth Normal Respiratory Pattern Blood Pressure 164/80 H Blood Pressure [Right Arm] Blood Pressure Mean 108 Blood Pressure Mean [Right Arm] Blood Pressure Position [Right Arm] Pulse Oximetry 95 95 96 Oxygen Delivery Method Room Air Sepsis Recent Fever Within 48 Hours No Sepsis New/Unexplained Change in Mental Status N/A Sepsis Action Taken by Nursing No Action Required 01/18/24 11:39 01/18/24 12:00 01/18/24 12:00 Temperature Temperature Source Pulse Rate Pulse Rate [Apical] 66 Pulse Rate from SpO2 Sensor Pulse Rhythm [Apical] Regular Pulse Strength [Apical] Normal Respiratory Rate 20 Respiratory Effort / Characteristics Non-Labored Spontaneous Respiratory Depth Normal Respiratory Pattern Regular Blood Pressure 140/75 130/76 Blood Pressure [Right Arm] 144/77 H Blood Pressure Mean 106 110 Blood Pressure Mean [Right Arm] 99 Blood Pressure Position [Right Arm] Sitting Pulse Oximetry 98 Oxygen Delivery Method Room Air Sepsis Recent Fever Within 48 Hours Sepsis New/Unexplained Change in Mental Status Sepsis Action Taken by Nursing 01/18/24 12:00 01/18/24 12:30 01/18/24 12:30 Temperature Temperature Source Pulse Rate 64 57 L Pulse Rate [Apical] Pulse Rate from SpO2 Sensor 65 57 L Pulse Rhythm [Apical] Pulse Strength [Apical] Respiratory Rate 19 17 Respiratory Effort / Characteristics Respiratory Depth Respiratory Pattern Blood Pressure 125/74 Blood Pressure [Right Arm] Blood Pressure Mean 99 Blood Pressure Mean [Right Arm] Blood Pressure Position [Right Arm] Pulse Oximetry 94 96 Oxygen Delivery Method Sepsis Recent Fever Within 48 Hours Sepsis New/Unexplained Change in Mental Status Sepsis Action Taken by Nursing 01/18/24 13:00 01/18/24 13:00 01/18/24 13:15 Temperature Temperature Source Pulse Rate 64 65 Pulse Rate [Apical] Pulse Rate from SpO2 Sensor 65 Pulse Rhythm [Apical] Pulse Strength [Apical] Respiratory Rate 18 Respiratory Effort / Characteristics Respiratory Depth Respiratory Pattern Blood Pressure 142/75 H Blood Pressure [Right Arm] Blood Pressure Mean 109 Blood Pressure Mean [Right Arm] Blood Pressure Position [Right Arm] Pulse Oximetry 97 Oxygen Delivery Method Sepsis Recent Fever Within 48 Hours Sepsis New/Unexplained Change in Mental Status Sepsis Action Taken by Nursing 01/18/24 13:30 01/18/24 13:30 01/18/24 14:00 Temperature Temperature Source Pulse Rate 66 86 Pulse Rate [Apical] Pulse Rate from SpO2 Sensor 67 79 Pulse Rhythm [Apical] Pulse Strength [Apical] Respiratory Rate 23 16 Respiratory Effort / Characteristics Respiratory Depth Respiratory Pattern Blood Pressure 128/72 Blood Pressure [Right Arm] Blood Pressure Mean 101 Blood Pressure Mean [Right Arm] Blood Pressure Position [Right Arm] Pulse Oximetry 96 95 Oxygen Delivery Method Sepsis Recent Fever Within 48 Hours Sepsis New/Unexplained Change in Mental Status Sepsis Action Taken by Nursing 01/18/24 14:01 01/18/24 14:01 01/18/24 14:01 Temperature Temperature Source Pulse Rate 90 Pulse Rate [Apical] Pulse Rate from SpO2 Sensor 85 Pulse Rhythm [Apical] Pulse Strength [Apical] Respiratory Rate 18 Respiratory Effort / Characteristics Respiratory Depth Respiratory Pattern Blood Pressure 145/76 H 145/76 H Blood Pressure [Right Arm] Blood Pressure Mean 84 84 Blood Pressure Mean [Right Arm] Blood Pressure Position [Right Arm] Pulse Oximetry 92 Oxygen Delivery Method Sepsis Recent Fever Within 48 Hours Sepsis New/Unexplained Change in Mental Status Sepsis Action Taken by Long-Term Medications Current Medication List: was personally reviewed by me Laboratory Data Attestation: I reviewed the patient's lab results. 01/18/24 11:18 01/18/24 11:18 Lab Results 01/18/24 Range/Units 11:18 WBC 12.82 H (4.8-10.8) K/ul RBC 4.11 L (4.20-5.40) M/uL Hgb 13.1 (12.0-16.0) g/dl Hct 39.5 (37.0-47.0) % MCV 96.1 (80.0-100.0) fL MCH 31.9 (25.0-34.0) pg MCHC 33.2 (32.0-36.0) g/dL RDW Std Deviation 46.5 H (36.4-46.3) fL RDW Coeff of Hector 13.0 (11.5-14.5) % Plt Count 136 (130-400) K/uL MPV 11.8 (9.4-12.4) fL Immature Gran % (Auto) 0.5 % Neut % (Auto) 73.0 % Lymph % (Auto) 14.2 % [place] % (Auto) 11.5 % Eos % (Auto) 0.3 % Baso % (Auto) 0.5 % Neut # (Auto) 9.37 H (1.40-6.50) K/uL Lymph # (Auto) 1.82 (1.20-3.40) K/uL [place] # (Auto) 1.47 H (0.11-0.59) K/uL Eos # (Auto) 0.04 (0.00-0.50) K/uL Baso # (Auto) 0.06 (0.00-0.20) K/uL Immature Gran # (Auto) 0.06 (0.01-0.20) K/uL RBC Morphology Unremarkable PT 10.3 (9.0-12.0) Seconds INR 0.9 (0.9-1.1) Sodium 142 (136-145) mmol/L Potassium 4.1 (3.5-5.1) mmol/L Chloride 109 H (98-107) mmol/L Carbon Dioxide 27 (21-32) mmol/L Anion Gap 6 (3-11) BUN 32 H (6-23) mg/dl Creatinine 0.73 (0.6-1.2) mg/dl Est Cr Clr Drug Dosing 52.7 ml/min Est GFR ( Amer) 93.4 ml/min Est GFR (Non-Af Amer) 80.6 ml/min BUN/Creatinine Ratio 43.8 H (10-20) Glucose 102 H (70-99(Fasting)) mg/dl Lactate 1.3 (0.4-2.0) mmol/L Calcium 9.3 (8.6-10.3) mg/dl Total Bilirubin 0.4 (0.2-1.0) mg/dl AST 52 H (13-39) U/L ALT 23 (7-52) U/L Alkaline Phosphatase 55 (34-104) U/L Total Protein 7.3 (6.0-8.3) gm/dl Albumin 4.0 (3.4-5.0) gm/dl Globulin 3.3 (2.5-4.0) gm/dl Albumin/Globulin Ratio 1.2 (0.9-2) Lipase 28 (11-82) U/L Procalcitonin 0.82 H (0-0.5) ng/ml Administered Medications Discontinued Medications Ceftriaxone Sodium (Rocephin) 2,000 mg in 50 mls @ 100 mls/hr IV NOW STA; Protocol Stop: 01/18/24 11:35 Last Infusion: 01/18/24 11:45 Dose: Infused Documented By: Admin: 01/18/24 11:19 Dose: 100 mls/hr Documented By: GENOVEVA Sodium Chloride (Nss) 1,000 mls @ 999 mls/hr IV .Q1H1M STA Stop: 01/18/24 12:06 Last Infusion: 01/18/24 13:39 Dose: Infused Documented By: Admin: 01/18/24 11:18 Dose: 999 mls/hr Documented By: GENOVEVA Discharge Plan Visit Data Chief Complaint: Abnormal Labs/Diagnostic Testing Stated Complaint: POS BLOOD CULTURE ED Provider: Brandon Nance Discharge Problem: Bacteremia due to Gram-negative bacteria, Urinary tract infection Patient Disposition: Being Evaluated by Hospitalist Forms Stand Alone Forms: [facility] StatusNet Prescriptions Prescriptions: No Action lorazepam [Ativan] 1 mg tablet 0.5 - 1 mg PO TID PRN (Reason: Anxiety) Tylenol PM Extra Strength 25-500 mg Tablet 1 tab PO HS PRN (Reason: Sleep) levothyroxine [Synthroid] 112 mcg tablet 137 mcg PO DAILY Passion Flower 1 tab PO DAILY Saccharomyces boulardii [Florastor] 250 mg capsule 250 mg PO BID Qty: 28 0RF Rx Instructions: swallow whole cefdinir 300 mg capsule 300 mg PO BID 7 Days Qty: 14 0RF Referrals Referrals: Levy Pyle MD [Outside Practitioners] - Discharge Problem: Urinary tract infection Qualifiers: Urinary tract infection type: site unspecified Hematuria presence: without hematuria Qualified Code(s): N39.0 - Urinary tract infection, site not specified
--- NOTE | 2024-01-18 12:00 | History & Physical Report ---
Date of Service January 18, 2024 Assessment & Plan (1) Bacteremia due to Gram-negative bacteria: Plan: -Admit to med/tele -Currently stable and non-toxic appearing -Initially presented to the [facility] ED on 01/17/24 with complaints of chills/rigors, was found to have a UTI and leukocytosis -Was given 1L NSS and a dose of Ceftriaxone on 01/16 with significant improvement in clinical status and she was discharged home with Cefdinir -Was called back to the ED today as one set of blood cultures and her urine culture are positive for gram negative bacteremia -PCR testing from blood cultures is positive for Enterobacterales/E.coli with negative CTX-M resistance gene -Given 1L NSS and another dose of ceftriaxone in the ED prior to admission -We will contive with Ceftriaxone for now until culture and sensitivity results are final -Fall/aspiration precautions -HH diet with minced/moist texture -AM CBC, CMP, mag (2) Urinary tract infection: Plan: -Patient is likely experiencing urinary retention due to her known cystocele with prolapse -Is also incontinent of stool/urine making her high risk for recurrent UTI's -Nursing staff was unable to place vann cath today -Urology consult placed, appreciate their assistance >They will see the patient shortly to place vann cath >Patient will likely need to be discharge on vann cath until she can be seen again by Gynecology to determine further treatment -Follow urine/blood cultures for final sensitivities -Monitor intake/output Q-shift (3) Cystocele with prolapse: Plan: -See UTI (4) Hypothyroidism: Plan: -Continue levothyroxine (5) Vascular dementia: Plan: -Continue Ativan -If needed, will order prn Zyprexa for anxiety/agitation but would want to try re-direction first -Fall/aspiration precuations Plan The patient was discussed with Dr. Hendricks' at the time of the admission History of Present Illness Chief Complaint: Positive blood cultures Primary Care Provider: Levy Pyle MD Angelica is a 73 year old female with a PMH significant for Vascular dementia, severe tardive dyskinesia, hypothyroidism who presented back to the ED on 01/18/24 after blood cultures obtained on 01/17/24 during her ED visit were found to be positive. The patient was initially brought to the ED on 01/17/24 via family due to chills. She was noted to be tachycardic on 01/16 with HR in the low 100's but she was otherwise stable. Labs on 01/16 were significant for a leukocytosis of 13 with neutrophil predominance of 11, procal of 1.29, UA with cloudy appearance, 2+ blood, 1+ protein, nitrite positive, 3+ leukocyte esterase, WBC > 50, and 4+ bacteria. Chest xray on 01/16 was negative for signs of infection. The patient was given a dose of ceftriaxone and 1L NSS prior to DC home with Cefdinir. The patient was noted to be stable today while in the ED. Urine culture from 01/17/24 is currently growing gram negative bacilli. One set of blood cultures from 01/16 is currently growing gram negative bacilli. PCR testing from her blood cultures was positive for E.coli/Enterobacterales but was negative for CTX-M resistance. Prior to admission the patient had repeat blood cultures drawn and was ordered 1L NSS and a dose of Ceftriaxone. At the time of the exam the patient was sitting in bed in no acute distress with her , history was obtained from family due to her severe dementia. They confirmed the above history. She was recently diagnosed with a 12/22 cystocele with prolapse. She was evaluated by Gynecology who recommended conservative care for now with her baseline mental status as she had not had complications such as infections or erosion. The family states that the prolapse appears to be getting worse, the patient is also incontinent of stool and urine at baseline. Family states that the patient will always answer "no" when asked about pain, doesn't believe she has dementia, and usually has significant sundowning at night. We discussed code status, family clearly explains they wish for the patient to be a full code at this time. Please refer to Dr. Hendricks' attestation for any changes to the treatment plan Allergies Allergy/AdvReac Type Severity Reaction Status Date / Time clarithromycin Allergy Unknown unknown Verified 02/02/20 17:37 doxycycline Allergy Unknown unknown Verified 02/02/20 17:37 gabapentin Allergy Unknown UNKNOWN Verified 02/02/20 17:37 Milk Containing Products Allergy Unknown GI SYMPTOMS Verified 02/02/20 17:37 (Dairy) [Milk Containing Products] norepinephrine AdvReac Unknown rapid hr Verified 02/02/20 17:37 Lactose. Allergy Unknown GI SYMPTOMS Uncoded 02/02/20 17:37 Home Medications Medication Instructions Recorded Confirmed Type Passion Flower 1 tab PO DAILY 02/02/20 01/18/24 History Saccharomyces boulardii 250 mg 250 mg PO BID #28 caps 02/02/20 01/18/24 Rx capsule (Florastor) diphenhydramine 25 1 tab PO HS PRN Sleep 02/02/20 01/18/24 History mg-acetaminophen 500 mg tablet (Tylenol PM Extra Strength) levothyroxine 112 mcg tablet 137 mcg PO DAILY 02/02/20 01/18/24 History (Synthroid) lorazepam 1 mg tablet (Ativan) 0.5 - 1 mg PO TID PRN Anxiety 02/02/20 01/18/24 History cefdinir 300 mg capsule 300 mg PO BID 7 days #14 caps 01/17/24 01/18/24 Rx Past Med/Surg History Medical History Hypothyroidism Dementia Social History Smoking Status: Never smoker Preferred Language: Montserratian Feels Safe at Home: Yes Physical Exam Physical Exam: Physical Exam: General: In no acute distress, stated age, well-nourished, non-toxic appearing HEENT: Normocephalic, atraumatic, no scleral icterus, pupils around round, symmetrical, and reactive to light, moist mucus membranes, trachea midline, no thyromegaly Chest/Pulm: No respiratory distress, symmetrical chest expansion, clear breath sounds throughout Cardiac: RRR, no murmurs noted Abdomen: Negative for ascites and bruising, normoactive bowel sounds, soft, non-tender to palpation throughout Musculoskeletal: Symmetrical and without signs of acute trauma, upper and lower extremities with full ROM, no atrophy, spasticity, or flaccidity Extremities: Radial, dorsalis pedis, and posterior tibial pulses are intact and symmetrical, no edema noted in the BL LE's Skin: Warm, dry, no rashes , lesions, or scars noted Neuro: Alert and oriented to person only (is her baseline), no focal defects, CN II-XII tested and intact, finger to nose test negative, no tremors noted Psych: No acute distress, calm and cooperative during the exam Results & Data Results & Data Vital Signs (Past 12 Hours) Vital Signs Temp Pulse Resp BP Pulse Ox O2 Del Method 01/18/24 10:59 36.7 C 77 20 164/80 H 95 Room Air Laboratory Results Abnormal lab results 01/18/24 Range/Units 11:18 WBC 12.82 H (4.8-10.8) K/ul RBC 4.11 L (4.20-5.40) M/uL RDW Std Deviation 46.5 H (36.4-46.3) fL Neut # (Auto) 9.37 H (1.40-6.50) K/uL [place] # (Auto) 1.47 H (0.11-0.59) K/uL Chloride 109 H (98-107) mmol/L BUN 32 H (6-23) mg/dl BUN/Creatinine Ratio 43.8 H (10-20) Glucose 102 H (70-99(Fasting)) mg/dl AST 52 H (13-39) U/L Procalcitonin 0.82 H (0-0.5) ng/ml Diagnostic Findings Abnormal lab results 01/18/24 Range/Units 11:18 WBC 12.82 H (4.8-10.8) K/ul RBC 4.11 L (4.20-5.40) M/uL RDW Std Deviation 46.5 H (36.4-46.3) fL Neut # (Auto) 9.37 H (1.40-6.50) K/uL [place] # (Auto) 1.47 H (0.11-0.59) K/uL Chloride 109 H (98-107) mmol/L BUN 32 H (6-23) mg/dl BUN/Creatinine Ratio 43.8 H (10-20) Glucose 102 H (70-99(Fasting)) mg/dl AST 52 H (13-39) U/L Procalcitonin 0.82 H (0-0.5) ng/ml ECG Additional Comments: Normal sinus rhythm Possible Left atrial enlargement Anterolateral infarct , age undetermined Abnormal ECG When compared with ECG of 19-JUL-2017 08:27, Anterolateral infarct is now Present Confirmed by Leo Del Rosario ([id number]) on 01/17/2024 1:05:20 PM Code Status & VTE Plan Code Status Full code VTE Prophylaxis Plan VTE Prophylaxis will be ordered: Yes Supervising Physician Co-Signing Physician Notes I have personally seen, evaluated and examined the patient. I have also personally discussed the management of the patient with the resident physician/CATHIE and I agree with the exam findings documented in the history and physical examination and the documented assessment and plan unless otherwise stated below. Brief Exam: In general very pleasant 73-year-old female who is alert and oriented to person. She is not the place and time given her underlying dementia but interacts very appropriately and per the family is at her baseline. Per the family she is extremely active and plays tennis multiple times per week. HEENT: Normocephalic atraumatic. Heart: Regular rate and rhythm no katie murmur. Lungs: Clear bilaterally. Abdomen: Soft nontender positive bowel sounds. Extremities intact with no significant edema. Urogenital exam I was accompanied by registered nurse Kaci at the time of my examination. Patient has a significant prolapse of the bladder. On the posterior aspect there is a cutaneous defect. It appears to be chronic. There is no active drainage. There is no surrounding erythema. Will wait to see what urology says about this Wednesday attempt to place the catheter as discussed above. The patient back in 2016 did require long-term home Vann catheter. And did use a leg bag effectively at that time. Patient family reports that the patient does have frequent incontinence of bowel and bladder this has been going on for some years and that is difficult to keep the region clean continuously. However this being said the patient is obviously extraordinarily well cared for by family she is accompanied by her and her daughter during the time of my interaction. Assessment/plan: As discussed above. Urology has been contacted. Will continue IV antibiotic therapy repeat blood cultures until bacteremia is cleared. At which point outpatient antibiotic therapy will be recommended pending sensitivity data. Patient and family are interested in possible gynecological referral and/or consultation to discuss possible pessary and lieu of possible definitive surgery. We will await urology's input and then determine whether inpatient versus outpatient gynecological referral is appropriate. PG Care Time/CCT Total # of Minutes Spent Total Time Spent with Patient: Total time spent is greater than 50% in coordination of care (as documented) at patient's floor/unit and/or counseling patient: [place] [address] INT INP/OBS CARE 3/75MIN Patient Type Established Medical Decision Making High Complexity Diagnoses Bacteremia due to Gram-negative bacteria R78.81 Urinary tract infection N39.0 Hematuria presence: without hematuria Urinary tract infection type: site unspecified Cystocele with prolapse N81.4 Hypothyroidism E03.9 Vascular dementia F01.50 (2) Urinary tract infection Hematuria presence: without hematuria Urinary tract infection type: site unspecified Qualified Code(s): N39.0 - Urinary tract infection, site not specified
[2024-01-18 12:01] LABS: Albumin Globulin Ratio 1.2 (0.9-2); BUN Creatinine Ratio 43.8 (10-20); Bilirubin,Total 0.4 mg/dl (0.2-1.0); Calcium 9.3 mg/dl (8.6-10.3); Creatinine Clr Calc Pharmacy 52.7 ml/min; Est GFR (African American) 93.4 ml/min; Est GFR (Non-African American) 80.6 ml/min; Globulin 3.3 gm/dl (2.5-4.0); Potassium 4.1 mmol/L (3.5-5.1); Total Protein 7.3 gm/dl (6.0-8.3)
[2024-01-18 12:09] LABS: Basophils # (auto) 0.06 K/uL (0.00-0.20); Basophils % (auto) 0.5 %; Eosinophils # (auto) 0.04 K/uL (0.00-0.50); Eosinophils % (auto) 0.3 %; Hematocrit (blood only) 39.5 % (37.0-47.0); Hemoglobin 13.1 g/dl (12.0-16.0); Immature Granulocytes # (auto) 0.06 K/uL (0.01-0.20); Immature Granulocytes % (auto) 0.5 %; Lymphocytes # (auto) 1.82 K/uL (1.20-3.40); Lymphocytes % (auto) 14.2 %; Mean Corpuscular Hemoglobin 31.9 pg (25.0-34.0); Mean Corpuscular Hgb Conc 33.2 g/dL (32.0-36.0); Mean Corpuscular Volume 96.1 fL (80.0-100.0); Mean Platelet Volume 11.8 fL (9.4-12.4); Monocytes # (auto) 1.47 K/uL (0.11-0.59); Monocytes % (auto) 11.5 %; Neutrophils # (auto) 9.37 K/uL (1.40-6.50); Platelet Count 136 K/uL (130-400); RBC Morphology Unremarkable; RDW Standard Deviation 46.5 fL (36.4-46.3); Red Blood Count 4.11 M/uL (4.20-5.40); White Blood Count 12.82 K/ul (4.8-10.8)
[2024-01-18 12:13] LABS: INR 0.9 (0.9-1.1); Prothrombin Time 10.3 Seconds (9.0-12.0)
--- NOTE | 2024-01-18 14:49 | Urology Consultation ---
Date of Consultation January 18, 2024 Assessment & Plan (1) Urinary tract infection: (2) Bacteremia due to Gram-negative bacteria: (3) Cystocele with prolapse: Plan 73yo/F admitted with UTI and bacteremia. Urology consulted for difficult Jarrett catheter placement. Jarrett cath placement for maximum bladder decompression in the setting of infection. Patient with significant prolapse primarily anterior and with some apical prolapse and protrudes far beyond the introitus. We had to manually reduce the prolapse to facilitate catheter placement. Using sterile technique, a 16Fr Jarrett catheter was placed at bedside with return of clear yellow urine. Patient tolerated well. Would maintain Jarrett for now while treating infection. Continue antibiotics and tailor as culture data becomes available. Recommend Urogyn eval/referral. We anticipate the prolapse will recur and she may benefit from a pessary. Urology will sign-off. Please call with any further questions or concerns. Patient was seen and examined at bedside with Dr. Mcmahan. History of Present Illness History of Present Illness 73 year old female with a PMH significant for Vascular dementia, severe tardive dyskinesia, hypothyroidism who presented back to the ED on 01/18/24 after blood cultures obtained on 01/17/24 during her ED visit were found to be positive. The patient was initially brought to the ED on 01/17/24 via family due to chills. She was afebrile, tachycardic. Labs on 01/16 were significant for a leukocytosis of 13 and normal renal function. UA with cloudy 2+ blood, 1+ protein, nitrite positive, 3+ leukocyte esterase, WBC > 50, and 4+ bacteria. The patient was given a dose of ceftriaxone and 1L NSS prior to DC home with Cefdinir. She was called back to the ED today due to positive blood cultures. On return to the ED today she was afebrile and hemodynamically stable. Labs show a leukocytosis of 12.82, hemoglobin 13.1, creatinine normal. Urine culture from 01/16 is preliminary gram-negative bacilli. Blood cultures 01/16 prelim 09/23 gram-negative bacilli. Repeat blood cultures pending. She is on ceftriaxone. Urology was consulted for Jarrett catheter placement. Patient with hx of significant prolapse primarily a cystocele. Was recently evaluated by Ux Lead. She is incontinent of bowel and bladder. This has been going on for some years. Family reports it is difficult to keep the area clean. Bladder scanned for 76ml, not true PVR as she is incontinent. Denies suprapubic pain. Denies hematuria or dysuria. Nursing attempted catheter placement, but was unsuccessful. Allergies Allergy/AdvReac Type Severity Reaction Status Date / Time clarithromycin Allergy Unknown unknown Verified 02/02/20 17:37 doxycycline Allergy Unknown unknown Verified 02/02/20 17:37 gabapentin Allergy Unknown UNKNOWN Verified 02/02/20 17:37 Milk Containing Products Allergy Unknown GI SYMPTOMS Verified 02/02/20 17:37 (Dairy) [Milk Containing Products] norepinephrine AdvReac Unknown rapid hr Verified 02/02/20 17:37 Lactose. Allergy Unknown GI SYMPTOMS Uncoded 02/02/20 17:37 Home Medications Medication Instructions Recorded Confirmed Type Passion Flower 1 tab PO DAILY 02/02/20 01/18/24 History Saccharomyces boulardii 250 mg 250 mg PO BID #28 caps 02/02/20 01/18/24 Rx capsule (Florastor) diphenhydramine 25 1 tab PO HS PRN Sleep 02/02/20 01/18/24 History mg-acetaminophen 500 mg tablet (Tylenol PM Extra Strength) levothyroxine 112 mcg tablet 137 mcg PO DAILY 02/02/20 01/18/24 History (Synthroid) lorazepam 1 mg tablet (Ativan) 0.5 - 1 mg PO TID PRN Anxiety 02/02/20 01/18/24 History cefdinir 300 mg capsule 300 mg PO BID 7 days #14 caps 01/17/24 01/18/24 Rx Patient History Medical History Hypothyroidism Dementia Social History Smoking Status: Never smoker Second Hand Exposure: No; Do You Dip or Chew Tobacco: No; Hx Alcohol Use: No Hx Substance Use: No Preferred Language: Azerbaijani Communication Ability: Effective [employer] Required: No Beliefs That Will Affect Care: None Current Living Situation: Spouse Other Information That Helps Us Care for You: No Feels Safe at Home: Yes Safety Concerns: Feels Safe At This Time Assistive Devices: None Review of Systems Review of Systems: All systems reviewed & are unremarkable except as noted in HPI & below Physical Exam Constitutional: no acute distress Respiratory: no respiratory distress and no labored breathing Gastrointestinal (Abdomen): Percussion/Palpation: abdomen soft; abdomen nontender Musculoskeletal: Head/Neck/Chest: normocephalic Neurologic: moves all extremities and awake Psychiatric: Orientation: alert, oriented to person and cooperative Genitourinary: Significant prolapse primarily anterior and with some apical prolapse and protrudes far beyond the introitus. Results & Data Vital Signs (Past 12 Hours) Vital Signs Temp Pulse Pulse Resp BP BP Pulse Ox 01/18/24 14:01 90 18 92 01/18/24 14:01 145/76 H 01/18/24 14:01 145/76 H 01/18/24 14:00 86 16 95 01/18/24 13:30 128/72 01/18/24 13:30 66 23 96 01/18/24 13:15 65 01/18/24 13:00 142/75 H 01/18/24 13:00 64 18 97 01/18/24 12:30 57 L 17 96 01/18/24 12:30 125/74 01/18/24 12:00 64 19 94 01/18/24 12:00 130/76 01/18/24 12:00 66 20 144/77 H 98 01/18/24 11:39 140/75 01/18/24 11:39 72 21 96 01/18/24 11:28 80 19 95 01/18/24 10:59 36.7 C 77 20 164/80 H 95 O2 Del Method 01/18/24 14:01 01/18/24 14:01 01/18/24 14:01 01/18/24 14:00 01/18/24 13:30 01/18/24 13:30 01/18/24 13:15 01/18/24 13:00 01/18/24 13:00 01/18/24 12:30 01/18/24 12:30 01/18/24 12:00 01/18/24 12:00 01/18/24 12:00 Room Air 01/18/24 11:39 01/18/24 11:39 01/18/24 11:28 01/18/24 10:59 Room Air PG Care Time/CCT Total # of Minutes Spent Total Time Spent with Patient: Total time spent is greater than 50% in coordination of care (as documented) at patient's floor/unit and/or counseling patient: Coding Level of Care Code 34143 INT INP/OBS CARE MIN Diagnoses Urinary tract infection N39.0 Hematuria presence: without hematuria Urinary tract infection type: site unspecified Bacteremia due to Gram-negative bacteria R78.81 Cystocele with prolapse N81.4 (1) Urinary tract infection Hematuria presence: without hematuria Urinary tract infection type: site unspecified Qualified Code(s): N39.0 - Urinary tract infection, site not specified
[2024-01-18] MEDS: LIDOCAINE VISCOUS 2% 15 ML UDC ONE (14:56)
[2024-01-18] MEDS: LORazepam 0.5 MG TAB PO PRN (22:15)
[2024-01-18] MEDS: ACETAMINOPHEN 325 MG TAB PO PRN (22:27)
[2024-01-18 23:55] LABS: Appearance Urine Clear (Clear); Bacteria Urine Automated None Seen (None Seen); Bilirubin Urine Negative (Negative); Blood Urine 2+ (Negative); Color Urine Yellow; Glucose Urine UA Negative (Negative); Ketones Urine Negative (Negative); Leukocyte Esterase Urine 1+ (Negative); Nitrite Urine Negative (Negative); Protein Urine 1+ (Negative); RBC Urine Automated >20 /hpf (0-2); Specific Gravity Urine 1.024 (1.000-1.030); Urobilinogen Urine Negative (Negative); WBC Urine Automated 21-50 /hpf (0-5); pH Urine 5.5 (4.5-7.5)
[2024-01-19] MEDS: LEVOTHYROXINE SODIUM 137 MCG TABLET PO SCH (04:11)
[2024-01-19 04:34] LABS: Basophils # (auto) 0.04 K/uL (0.00-0.20); Basophils % (auto) 0.4 %; Eosinophils # (auto) 0.05 K/uL (0.00-0.50); Eosinophils % (auto) 0.5 %; Hematocrit (blood only) 32.8 % (37.0-47.0); Hemoglobin 11.2 g/dl (12.0-16.0); Immature Granulocytes # (auto) 0.03 K/uL (0.01-0.20); Immature Granulocytes % (auto) 0.3 %; Lymphocytes % (auto) 21.2 %; Mean Corpuscular Hemoglobin 32.2 pg (25.0-34.0); Mean Corpuscular Hgb Conc 34.1 g/dL (32.0-36.0); Mean Corpuscular Volume 94.3 fL (80.0-100.0); Mean Platelet Volume 11.4 fL (9.4-12.4); Monocytes # (auto) 1.37 K/uL (0.11-0.59); Monocytes % (auto) 14.5 %; Neutrophils # (auto) 5.95 K/uL (1.40-6.50); Neutrophils % (auto) 63.1 %; Platelet Count 181 K/uL (130-400); RDW Coefficient of Variation 13.1 % (11.5-14.5); Red Blood Count 3.48 M/uL (4.20-5.40); White Blood Count 9.44 K/ul (4.8-10.8)
[2024-01-19 04:49] LABS: Albumin Globulin Ratio 1.2 (0.9-2); Albumin Level 3.3 gm/dl (3.4-5.0); BUN Creatinine Ratio 40.9 (10-20); Bilirubin,Total 0.3 mg/dl (0.2-1.0); Calcium 8.3 mg/dl (8.6-10.3); Creatinine Clr Calc Pharmacy 58.2 ml/min; Est GFR (African American) 100.2 ml/min; Est GFR (Non-African American) 86.4 ml/min; Globulin 2.7 gm/dl (2.5-4.0); Potassium 3.8 mmol/L (3.5-5.1)
[2024-01-19] MEDS: cefTRIAXone SODIUM 2,000 MG/50 ML BAG IV SCH (08:51)
--- NOTE | 2024-01-19 11:20 | OB/GYN Consultation ---
Date of Consultation January 19, 2024 Assessment & Plan (1) Uterine procidentia: Plan Discussed with family findings on today's exam. This degree of prolapse can cause issues with kinking of ureters and incomplete emptying (which can contribute to risk of infection of bladder) but spouse says she does have large volume voids and that an u/s done by urology did not show urinary retention. Either way we can offer pessary mgmt or surgery is other alternative. One of the only times patient spoke, she states she "does not want surgery." Pessary mgmt can be quite successful but sometimes need to find device that will fit and not cause issues and on rare but possible occasions no device will be retained. We won't know unless we try. This is an office/outpt fitting and can be scheduled. Sometimes it takes several trials to find device that will be suitable. She is known to Dr. Perera and pending her dc by this weekend I have obtained appt for her in office 915am on WednesdayJanuary 23 with him. If patient not discharged in time to get to this appt, then please reach back out to us so another appt can be arranged and we can free up that appt. Discussed at length pessary use with patient and family, need for visits to check tissues, some providers prefer use of e2 vaginally. They also were asking about surgical procedures, and i briefly reviewed prolapse surgery and LeFort procedures. Sometimes these procedures are done by specialists but they can inquire more with Dr. Perera, if they get to that point, what he would recommend. Of note, I did reduce the prolapse but that will not likely last given degree and with ambulation, normal bowel function, it will return. Will sign off for pt to have planned appt for pessary fitting. >55min spent face to face, non face to face and documentation. History of Present Illness Reason for Consultation: Prolapse Requesting Physician: Dr. Mercado Attending Physician: Umu Mercado MD History of Present Illness 73yo with cc of prolapse who I am asked to see on consult by Dr. Mercado. Patient is in her room and daughter and spouse by bedside. She does very little talking but does state she doesn't feel any pain or pressure. No bleeding. Apparently admitted with uti and blood cx are pending. Concern re: degree of prolapse and that is why I am consulted. As it turns out she was just seen by Dr. Perera in outpt setting 12/11 and known prolapse, described as cystocele, grade 4. She is completely incontinent of urine and therefore has no sense of fullness or of complete emptying. The patient daughter says concern raised about a black dot on tissue that is protruding from vagina. OBGYNH: x 1, not sa. All Active Problems Bacteremia due to Gram-negative bacteria (Acute Medical) R78.81 - Bacteremia (ICD-10) Urinary tract infection (Acute Medical) N39.0 - Urinary tract infection, site not specified (ICD-10) Cystocele with prolapse (Acute Medical) N81.4 - Uterovaginal prolapse, unspecified (ICD-10) Hypothyroidism (Medical) E03.9 - Hypothyroidism, unspecified (ICD-10) Altered mental status (Medical) R41.82 - Altered mental status, unspecified (ICD-10) Suicidal thoughts (Resolved Medical) R45.851 - Suicidal ideations (ICD-10) Tardive dyskinesia (Chronic Medical) G24.01 - Drug induced subacute dyskinesia (ICD-10) Acute pulmonary embolism (Medical) I26.99 - Other pulmonary embolism without acute cor pulmonale (ICD-10) Constipation (Chronic Medical) K59.00 - Constipation, unspecified (ICD-10) Hyponatremia (Resolved Medical) E87.1 - Hypo-osmolality and hyponatremia (ICD-10) Moderate major depression, single episode (Resolved Medical 04/05/12) F32.1 - Major depressive disorder, single episode, moderate (ICD-10) Pneumonitis (Acute Medical) J18.9 - Pneumonia, unspecified organism (ICD-10) Vascular dementia (Resolved Medical) F01.50 - Vascular dementia without behavioral disturbance (ICD-10) Allergies Allergy/AdvReac Type Severity Reaction Status Date / Time clarithromycin Allergy Unknown unknown Verified 02/02/20 17:37 doxycycline Allergy Unknown unknown Verified 02/02/20 17:37 gabapentin Allergy Unknown UNKNOWN Verified 02/02/20 17:37 Milk Containing Products Allergy Unknown GI SYMPTOMS Verified 02/02/20 17:37 (Dairy) [Milk Containing Products] norepinephrine AdvReac Unknown rapid hr Verified 02/02/20 17:37 Lactose. Allergy Unknown GI SYMPTOMS Uncoded 02/02/20 17:37 Home Medications Medication Instructions Recorded Confirmed Type Passion Flower 1 tab PO DAILY 02/02/20 01/18/24 History Saccharomyces boulardii 250 mg 250 mg PO BID #28 caps 02/02/20 01/18/24 Rx capsule (Florastor) diphenhydramine 25 1 tab PO HS PRN Sleep 02/02/20 01/18/24 History mg-acetaminophen 500 mg tablet (Tylenol PM Extra Strength) levothyroxine 112 mcg tablet 137 mcg PO DAILY 02/02/20 01/18/24 History (Synthroid) lorazepam 1 mg tablet (Ativan) 0.5 - 1 mg PO TID PRN Anxiety 02/02/20 01/18/24 History cefdinir 300 mg capsule 300 mg PO BID 7 days #14 caps 01/17/24 01/18/24 Rx Patient History Medical History (Updated 01/19/24 @ 11:27 by Isaura Kwong MD, FACOG) Hypothyroidism Dementia Social History Smoking Status: Never smoker Second Hand Exposure: No; Do You Dip or Chew Tobacco: No; Hx Alcohol Use: No Hx Substance Use: No Preferred Language: Yi Communication Ability: Effective Geriatric Care Manager Required: No Beliefs That Will Affect Care: None Current Living Situation: Spouse Feels Safe at Home: Yes Assistive Devices: None Review of Systems Constitutional: as per Subjective / HPI Physical Exam Constitutional: WD/WN, vitals as above Neurologic: grossly normal Genitourinary: Upon patient returning to bed, perineum was examined with nursing front desk worker. Family inspecting tissues as well. Complete uterine procidentia noted. Reduced with ease and minimal discomfort to pt. Small dot that daughter was saying was noted was cervical os. No evidence of any excoriations or lesions. Results & Data Vital Signs (Past 12 Hours) Vital Signs Temp Pulse Pulse Pulse Resp BP Pulse Ox 01/19/24 07:56 98.2 F 72 16 160/84 H 93 01/19/24 07:15 70 01/19/24 04:18 99.5 F 98 H 22 105/63 92 O2 Del Method 01/19/24 07:56 Room Air 01/19/24 07:15 01/19/24 04:18 Room Air PG Care Time/CCT Total # of Minutes Spent Total Time Spent with Patient: Total time spent is greater than 50% in coordination of care (as documented) at patient's floor/unit and/or counseling patient: Coding Level of Care Code 33921 INT INP/OBS CARE 2/55MIN Diagnoses Uterine procidentia N81.3
--- NOTE | 2024-01-19 14:28 | Hospitalist Progress Note ---
Date of Service January 19, 2024 Assessment & Plan (1) Bacteremia due to Gram-negative bacteria: Plan: -Admit to med/tele -Currently stable and non-toxic appearing -Initially presented to the [facility] ED on 01/17/24 with complaints of chills/rigors, was found to have a UTI and leukocytosis -Was given 1L NSS and a dose of Ceftriaxone on 01/16 with significant improvement in clinical status and she was discharged home with Cefdinir -Was called back to the ED today as one set of blood cultures and her urine culture are positive for gram negative bacteremia -PCR testing from blood cultures is positive for Enterobacterales/E.coli with negative CTX-M resistance gene -Given 1L NSS and another dose of ceftriaxone in the ED prior to admission Will continue ceftriaxone for now Repeat blood cultures from 01/17 pending. -Fall/aspiration precautions Leukocytosis improving Patient is clinically improving as well (2) Urinary tract infection: Plan: -Patient is likely experiencing urinary retention due to her known cystocele with prolapse -Is also incontinent of stool/urine making her high risk for recurrent UTI's -Nursing staff was unable to place vann cath today -Urology placed a Vann cathether Patient was seen by [employer]. Has an appointment set up for 01/23. Pessary will be considered -Follow urine/blood cultures for final sensitivities -Monitor intake/output Q-shift (3) Cystocele with prolapse: Plan: -See UTI (4) Hypothyroidism: Plan: -Continue levothyroxine (5) Vascular dementia: Plan: -Continue Ativan -If needed, will order prn Zyprexa for anxiety/agitation but would want to try re-direction first -Fall/aspiration precuations Admission and Anticipated Discharge Date Admission Date: January 18, 2024 Subjective Patient feels better overall. Denies chest pain, shortness of breath. and daughter at the bedside. Review of Systems Review of Systems: All systems reviewed & are unremarkable except as noted in Subjective Physical Exam Physical Exam: General: Awake, conversant Heart: S1, S2/regular rate and rhythm, no murmur rubs or gallops Lungs: Clear to auscultation bilaterally. Normal effort Abdomen: Soft/nontender/nondistended. No hepatosplenomegaly Extremities: No clubbing/cyanosis. No edema Behavior: Appropriate, cooperative Results & Data Results & Data Vital Signs (Past 12 Hours) Vital Signs Temp Pulse Pulse Pulse Resp BP Pulse Ox 01/19/24 11:51 36.6 C 60 16 160/83 H 95 01/19/24 07:56 36.8 C 72 16 160/84 H 93 01/19/24 07:15 70 01/19/24 04:18 37.5 C 98 H 22 105/63 92 O2 Del Method 01/19/24 11:51 Room Air 01/19/24 07:56 Room Air 01/19/24 07:15 01/19/24 04:18 Room Air Laboratory Results Abnormal lab results 01/18/24 01/19/24 Range/Units 23:39 03:57 RBC 3.48 L (4.20-5.40) M/uL Hgb 11.2 L (12.0-16.0) g/dl Hct 32.8 L (37.0-47.0) % Waller # (Auto) 1.37 H (0.11-0.59) K/uL Chloride 112 H (98-107) mmol/L BUN 27 H (6-23) mg/dl BUN/Creatinine Ratio 40.9 H (10-20) Glucose 105 H (70-99(Fasting)) mg/dl Calcium 8.3 L (8.6-10.3) mg/dl Albumin 3.3 L (3.4-5.0) gm/dl Urine Protein 1+ H (Negative) Urine Blood 2+ H (Negative) Ur Leukocyte Esterase 1+ H (Negative) Urine WBC (Auto) 21-50 H (0-5) /hpf Urine RBC (Auto) >20 H (0-2) /hpf U Hyaline Cast (Auto) 3-5 H (0-2) /lpf U Epithel Cells (Auto) 3-5 H (0-2) /hpf PG Care Time/CCT Total # of Minutes Spent Total Time Spent with Patient: Total time spent is greater than 50% in coordination of care (as documented) at patient's floor/unit and/or counseling patient: Coding Level of Care Code 17896 SUB INP/OBS CARE 2/35MIN Diagnoses Bacteremia due to Gram-negative bacteria R78.81 Urinary tract infection N39.0 Hematuria presence: without hematuria Urinary tract infection type: site unspecified Cystocele with prolapse N81.4 Hypothyroidism E03.9 Vascular dementia F01.50 (2) Urinary tract infection Hematuria presence: without hematuria Urinary tract infection type: site unspecified Qualified Code(s): N39.0 - Urinary tract infection, site not specified
[2024-01-19] MEDS: clonazePAM 0.5 MG TAB PO PRN (22:25)
[2024-01-20 07:39] LABS: Basophils # (auto) 0.05 K/uL (0.00-0.20); Basophils % (auto) 0.6 %; Eosinophils # (auto) 0.13 K/uL (0.00-0.50); Eosinophils % (auto) 1.6 %; Hematocrit (blood only) 39.1 % (37.0-47.0); Hemoglobin 13.3 g/dl (12.0-16.0); Immature Granulocytes # (auto) 0.04 K/uL (0.01-0.20); Immature Granulocytes % (auto) 0.5 %; Lymphocytes # (auto) 2.61 K/uL (1.20-3.40); Mean Corpuscular Hemoglobin 31.8 pg (25.0-34.0); Mean Corpuscular Volume 93.5 fL (80.0-100.0); Mean Platelet Volume 11.3 fL (9.4-12.4); Monocytes # (auto) 0.81 K/uL (0.11-0.59); Monocytes % (auto) 10.2 %; Neutrophils # (auto) 4.28 K/uL (1.40-6.50); Neutrophils % (auto) 54.1 %; Platelet Count 234 K/uL (130-400); RDW Coefficient of Variation 12.8 % (11.5-14.5); RDW Standard Deviation 43.9 fL (36.4-46.3); Red Blood Count 4.18 M/uL (4.20-5.40); White Blood Count 7.92 K/ul (4.8-10.8)
[2024-01-20 08:06] LABS: Albumin Level 3.6 gm/dl (3.4-5.0); Bilirubin,Total 0.4 mg/dl (0.2-1.0); Calcium 8.8 mg/dl (8.6-10.3); Potassium 4.2 mmol/L (3.5-5.1)
[2024-01-20 08:12] LABS: Albumin Globulin Ratio 1.1 (0.9-2); Creatinine Clr Calc Pharmacy 65.2 ml/min; Est GFR (African American) 103.9 ml/min; Est GFR (Non-African American) 89.7 ml/min; Globulin 3.2 gm/dl (2.5-4.0); Total Protein 6.8 gm/dl (6.0-8.3)
[2024-01-20] MEDS: hydrALAZINE HCL 20 MG/ML VIAL IV STA (09:22)
--- NOTE | 2024-01-20 11:37 | Discharge Summary ---
Date of Service January 20, 2024 Admission HPI Per Admitting Provider Angelica is a 73 year old female with a PMH significant for Vascular dementia, severe tardive dyskinesia, hypothyroidism who presented back to the ED on 01/18/24 after blood cultures obtained on 01/17/24 during her ED visit were found to be positive. The patient was initially brought to the ED on 01/17/24 via family due to chills. She was noted to be tachycardic on 01/16 with HR in the low 100's but she was otherwise stable. Labs on 01/16 were significant for a leukocytosis of 13 with neutrophil predominance of 11, procal of 1.29, UA with cloudy appearance, 2+ blood, 1+ protein, nitrite positive, 3+ leukocyte esterase, WBC > 50, and 4+ bacteria. Chest xray on 01/16 was negative for signs of infection. The patient was given a dose of ceftriaxone and 1L NSS prior to DC home with Cefdinir. The patient was noted to be stable today while in the ED. Urine culture from 01/17/24 is currently growing gram negative bacilli. One set of blood cultures from 01/16 is currently growing gram negative bacilli. PCR testing from her blood cultures was positive for E.coli/Enterobacterales but was negative for CTX-M resistance. Prior to admission the patient had repeat blood cultures drawn and was ordered 1L NSS and a dose of Ceftriaxone. At the time of the exam the patient was sitting in bed in no acute distress with her , history was obtained from family due to her severe dementia. They confirmed the above history. She was recently diagnosed with a / cystocele with prolapse. She was evaluated by Gynecology who recommended conservative care for now with her baseline mental status as she had not had complications such as infections or erosion. The family states that the prolapse appears to be getting worse, the patient is also incontinent of stool and urine at baseline. Family states that the patient will always answer "no" when asked about pain, doesn't believe she has dementia, and usually has significant sundowning at night. We discussed code status, family clearly explains they wish for the patient to be a full code at this time. Please refer to Dr. Hendricks' attestation for any changes to the treatment plan Admission Exam Per Admitting Provider General: In no acute distress, stated age, well-nourished, non-toxic appearing HEENT: Normocephalic, atraumatic, no scleral icterus, pupils around round, symmetrical, and reactive to light, moist mucus membranes, trachea midline, no thyromegaly Chest/Pulm: No respiratory distress, symmetrical chest expansion, clear breath sounds throughout Cardiac: RRR, no murmurs noted Abdomen: Negative for ascites and bruising, normoactive bowel sounds, soft, non- tender to palpation throughout Musculoskeletal: Symmetrical and without signs of acute trauma, upper and lower extremities with full ROM, no atrophy, spasticity, or flaccidity Extremities: Radial, dorsalis pedis, and posterior tibial pulses are intact and symmetrical, no edema noted in the BL LE's Skin: Warm, dry, no rashes , lesions, or scars noted Neuro: Alert and oriented to person only (is her baseline), no focal defects, CN II-XII tested and intact, finger to nose test negative, no tremors noted Psych: No acute distress, calm and cooperative during the exam Principal Diagnosis E. coli bacteremia E. coli pyelonephritis Cystocele with prolapse Discharge Exam General: Awake, conversant Heart: S1, S2/regular rate and rhythm, no murmur rubs or gallops Lungs: Clear to auscultation bilaterally. Normal effort Abdomen: Soft/nontender/nondistended. No hepatosplenomegaly Extremities: No clubbing/cyanosis. No edema Behavior: Appropriate, cooperative Discharge Data Allergies Allergy/AdvReac Type Severity Reaction Status Date / Time clarithromycin Allergy Unknown unknown Verified 02/02/20 17:37 doxycycline Allergy Unknown unknown Verified 02/02/20 17:37 gabapentin Allergy Unknown UNKNOWN Verified 02/02/20 17:37 Milk Containing Products Allergy Unknown GI SYMPTOMS Verified 02/02/20 17:37 (Dairy) [Milk Containing Products] norepinephrine AdvReac Unknown rapid hr Verified 02/02/20 17:37 Lactose. Allergy Unknown GI SYMPTOMS Uncoded 02/02/20 17:37 Consultations 01/18/24 11:55 ED Decision to Admit Stat 01/18/24 12:40 Consult Urology Routine 01/19/24 10:29 Consult Gynecology Routine Hospital Course (1) Bacteremia due to Gram-negative bacteria: -Initially presented to the [facility] ED on 01/17/24 with complaints of chills/rigors, was found to have a UTI and leukocytosis -Was given 1L NSS and a dose of Ceftriaxone on 01/16 with significant improvement in clinical status and she was discharged home with Cefdinir -Was called back to the ED on 01/17 as one set of blood cultures and her urine culture are positive for gram negative bacteremia -PCR testing from blood cultures is positive for Enterobacterales/E.coli with negative CTX-M resistance gene Was started on IV ceftriaxone. Repeat blood cultures from 01/17 negative Leukocytosis resolved Patient has clinically improved as well. Plan to discharge the patient on p.o. cefdinir to complete the course as prescribed previously. (2) Urinary tract infection: -Patient is likely experiencing urinary retention due to her known cystocele with prolapse -Is also incontinent of stool/urine making her high risk for recurrent UTI's -Nursing staff was unable to place vann cath today -Urology placed a Vann cathether. Urology wants the patient to go home with a Vann catheter. Patient was seen by [facility]. Has an appointment set up for 01/23. Pessary will be considered At her [facility] appointment on 01/23, the catheter will be removed. If it is not removed, urology will schedule an appointment to see her in their office. -Urine culture growing sensitive E. coli. Discharged on cefdinir (3) Cystocele with prolapse: -See UTI (4) Hypothyroidism: -Continue levothyroxine (5) Vascular dementia: -Continue Ativan -If needed, will order prn Zyprexa for anxiety/agitation but would want to try re-direction first -Fall/aspiration precuations Noted that overnight, patient had high blood pressure. She was also screaming. She was also anxious. Most likely the high blood pressure was related to anxiety and hospital-acquired delirium. This morning she is not delirious. Her blood pressure responded to a dose of hydralazine. I asked the to monitor her blood pressure once daily at home and keep a log of the blood pressure readings and to take it to her primary care visit in case she needs to be started on antihypertensives. The tells me that her blood pressure at home and her PCP office has been controlled previously Plan Discharge to home today Total Time Total Time Spent Total Time Spent (In Minutes): 35 Discharge Plan Discharge Items Patient Disposition: Home - Self-Care Reason For Visit: POS BLOOD CULTURE Discharge Diagnosis: E. coli bacteremia E. coli pyelonephritis Cystocele with prolapse Activity: Resume your previous activity Non-emergency contact: Primary Care Provider Call non-emergency contact if: you have any medication questions Follow-up/Referrals: Kamron Perera MD, FACOG [Physician] - 01/24/24 9:15 am PCP,NO [Physician] - Diet: Heart Healthy Addtl Attending Provider Instructions: Advised to follow-up with PCP in 1 week Advised to follow-up with [facility] on scheduled date. Advised to note that you are being discharged with a vann catheter in place. When you go to your [facility] appointment, the catheter will be removed. If it is not removed, urology will schedule an appointment to remove the catheter. Pending Studies at Discharge: No Stand-Alone Forms: [facility] Medications and DC Order Prescriptions: Continued lorazepam [Ativan] 1 mg tablet 0.5 - 1 mg PO TID PRN (Reason: Anxiety) Tylenol PM Extra Strength 25-500 mg Tablet 1 tab PO HS PRN (Reason: Sleep) levothyroxine [Synthroid] 112 mcg tablet 137 mcg PO DAILY Passion Flower 1 tab PO DAILY Saccharomyces boulardii [Florastor] 250 mg capsule 250 mg PO BID Qty: 28 0RF Rx Instructions: swallow whole cefdinir 300 mg capsule 300 mg PO BID 7 Days Qty: 14 0RF Discharge Orders: Discharge Order (Routine); Ordered 01/20/24 Ordered By: Umu Mercado Admission Data Admit Date/Time: 01/18/24 12:00 Attending Provider: Umu Mercado Admit Provider: Walt Hendricks Primary Care Provider: Leann Franklin Other Providers: Walt Hendricks; James Mcmahan; Isaura Kwong Other Interventions: Discharge Summary Assessment (RN) Last Done: 01/20/24 12:03 Coding Level of Care Code 55330 INP/OBS DISCH >30 MIN Diagnoses Bacteremia due to Gram-negative bacteria R78.81 Urinary tract infection N39.0 Hematuria presence: without hematuria Urinary tract infection type: site unspecified Cystocele with prolapse N81.4 Hypothyroidism E03.9 Vascular dementia F01.50
== END 2024-01-20 13:21 | disposition home or self-care (01) | DRG 872 ==
LOC: ED 10:57 → SUATTDRO 12:00 → 2W 12:00

== ENCOUNTER 2024-09-29 10:50 | Observation (INO) ==
--- NOTE | 2024-09-29 11:01 | Emergency Department Note ---
Impression & Plan Pneumonia, Acute bronchitis due to human metapneumovirus (hMPV) ED Provider Note NAME: PNEG SOLIS AGE: 73 SEX: F : 1950 ARRIVES VIA: Ambulance INFORMANT: Patient, ED PROVIDER(S): Brandon Nance DO CHIEF COMPLAINT: Difficulty breathing HPI: The patient is a 73-year-old female who presented to the emergency department by ambulance for an evaluation of difficulty breathing. The patient has had symptoms over the course the last week. She describes a initially dry cough but then productive cough especially over the last few days. She has been having severe difficulty breathing with any ambulation. She denies having any leg swelling or leg pain. She denies having any chest pain. She called 911 today to be seen because of ongoing and worsening symptoms. ROS: See above HPI for pertinent positives & negatives. A total of 10 systems reviewed and were otherwise negative. PAST MEDICAL HISTORY: See Below PAST SURGICAL HISTORY: See Below FAMILY HISTORY: See Below SOCIAL HISTORY: See Below HOME MEDICATIONS: See Below ALLERGIES: See Below VITALS: See Below PHYSICAL EXAMINATION: GENERAL: The patient is awake and alert. The patient is anxious and appears ill. EYES: The conjunctivae are clear. The pupils are round and reactive. EARS, NOSE, MOUTH AND THROAT: The nose is without any evidence of any deformity. NECK: The neck is nontender and supple. RESPIRATORY: Tachypnea and conversational dyspnea were appreciated. There were diminished breath sounds noted throughout with rales mostly in the left lung field. CARDIOVASCULAR: Regular rate and rhythm noted there no murmurs rubs or gallops normal S1 normal S2. GASTROINTESTINAL: The abdomen is soft. Abdomen is nontender. MUSCULOSKELETAL/EXTREMITIES: There is no evidence of gross deformity full range of motion is noted in the hips and shoulders. SKIN: There is no obvious evidence of any rash. There are no petechiae, pallor or cyanosis noted. NEUROLOGIC: Patient is awake alert and oriented x3 MEDICAL DECISION MAKING: The patient is a 73-year-old female who presented to the emergency department with family for an evaluation of difficulty breathing and cough. The patient's history and physical exam appear to be consistent with pneumonia. Chest x-ray appears to be consistent with pneumonia as well. Her significant other also has been having symptoms. The patient's oxygen saturation was noted to be low on a few occasions. Viral swab was positive for human metapneumovirus. It is possible that this is the cause of the infection but given the patient's response to this I do not feel she would be a good candidate for outpatient management. She was treated with IV antibiotics. I discussed her condition with the on-call [facility] hospitalist. Triage Nursing notes reviewed. Prior medical records reviewed Vital Signs: reviewed and remarkable for hypoxia Differential diagnosis: Reactive airway disease, pneumonia, pneumothorax, COPD, CHF, infections, cardiac ischemia, pulmonary embolism, musculoskeletal, gastrointestinal, as well as other pathologies. ER treatment provided: See below Diagnostics interpreted by me: ECG: EKG was obtained in the emergency department. My interpretation is normal sinus rhythm at 85 bpm. There is no ectopy. Incomplete right bundle branch block pattern was noted. This was compared to a tracing from January 17, 2024. No changes were noted. Cardiac Monitoring: An order was placed for continuous cardiac monitoring. The monitor shows a rate of 76 bpm with sinus rhythm. Laboratory studies: As stated above and show below. Imaging studies: See below. Radiographic imaging was reviewed by myself Consultation(s): I discussed this case with Dr. Hendricks who is on-call for the [facility] hospitalist group. Past Med/Surg History Problem List (Updated 09/29/24 @ 13:15 by Brandon Nance DO) Acute bronchitis due to human metapneumovirus (hMPV) (Acute) Pneumonia (Acute) Uterine procidentia Bacteremia due to Gram-negative bacteria (Acute) Urinary tract infection (Acute) Cystocele with prolapse (Acute) Hypothyroidism Altered mental status Tardive dyskinesia (Chronic) Acute pulmonary embolism Constipation (Chronic) Pneumonitis (Acute) Medical History (Updated 09/29/24 @ 13:15 by Brandon Nance DO) Dementia Social History Smoking Status: Never smoker Second Hand Exposure: No; Do You Dip or Chew Tobacco: No; Hx Alcohol Use: No Hx Substance Use: No Preferred Language: Tanzanian Communication Ability: Effective Super[employer] Required: No Beliefs That Will Affect Care: None Current Living Situation: Spouse Feels Safe at Home: Yes Assistive Devices: None Allergies Allergies Allergy/AdvReac Type Severity Reaction Status Date / Time clarithromycin Allergy Unknown unknown Verified 06/28/24 10:36 doxycycline Allergy Unknown unknown Verified 06/28/24 10:36 gabapentin Allergy Unknown UNKNOWN Verified 06/28/24 10:36 Milk Containing Products Allergy Unknown GI SYMPTOMS Verified 06/28/24 10:36 (Dairy) [Milk Containing Products] norepinephrine AdvReac Unknown rapid hr Verified 06/28/24 10:36 Lactose. Allergy Unknown GI SYMPTOMS Uncoded 06/28/24 10:36 Home Meds Home Medications Medication Instructions Recorded Confirmed Passion Flower 1 tab PO DAILY 02/02/20 09/29/24 diphenhydramine 25 1 tab PO HS PRN Sleep 02/02/20 09/29/24 mg-acetaminophen 500 mg tablet (Tylenol PM Extra Strength) levothyroxine 112 mcg tablet 137 mcg PO DAILY 02/02/20 09/29/24 (Synthroid) lorazepam 1 mg tablet (Ativan) 0.5 - 1 mg PO TID PRN Anxiety 02/02/20 09/29/24 Previous Rx's Medication Instructions Recorded Saccharomyces boulardii 250 mg 250 mg PO BID #28 caps 02/02/20 capsule (Florastor) Results & Data (ED) Vital Signs Vital Signs - 24 hr 09/29/24 10:50 09/29/24 11:10 09/29/24 11:12 Temperature Temperature Source Pulse Rate 76 Pulse Rate [Right Finger] Respiratory Rate 24 Respiratory Effort / Characteristics Non-Labored Spontaneous Spontaneous Labored Respiratory Depth Normal Respiratory Pattern Regular Blood Pressure 158/89 H Blood Pressure [Right Arm] Blood Pressure Mean 112 Blood Pressure Mean [Right Arm] Pulse Oximetry 96 Oxygen Delivery Method Room Air Room Air Room Air Sepsis Recent Fever Within 48 Hours No Sepsis New/Unexplained Change in Mental Status N/A Sepsis Action Taken by Nursing No Action Required 09/29/24 11:45 09/29/24 11:47 09/29/24 12:06 Temperature 37.0 C Temperature Source Oral Pulse Rate 76 Pulse Rate [Right Finger] 78 Respiratory Rate 18 Respiratory Effort / Characteristics Non-Labored Spontaneous Non-Labored Spontaneous Respiratory Depth Normal Normal Respiratory Pattern Regular Regular Blood Pressure Blood Pressure [Right Arm] 169/91 H Blood Pressure Mean Blood Pressure Mean [Right Arm] 117 Pulse Oximetry 92 Oxygen Delivery Method Room Air Sepsis Recent Fever Within 48 Hours Sepsis New/Unexplained Change in Mental Status Sepsis Action Taken by Nursing 09/29/24 12:41 Temperature Temperature Source Pulse Rate Pulse Rate [Right Finger] Respiratory Rate Respiratory Effort / Characteristics Respiratory Depth Respiratory Pattern Blood Pressure Blood Pressure [Right Arm] Blood Pressure Mean Blood Pressure Mean [Right Arm] Pulse Oximetry 91 Oxygen Delivery Method Room Air Sepsis Recent Fever Within 48 Hours Sepsis New/Unexplained Change in Mental Status Sepsis Action Taken by Care Home Medications Current Medication List: was personally reviewed by me Laboratory Data Attestation: I reviewed the patient's lab results. 09/29/24 11:13 09/29/24 11:13 Lab Results 09/29/24 Range/Units 11:13 WBC 16.05 H (4.8-10.8) K/ul RBC 3.84 L (4.20-5.40) M/uL Hgb 12.1 (12.0-16.0) g/dl Hct 35.9 L (37.0-47.0) % MCV 93.5 (80.0-100.0) fL MCH 31.5 (25.0-34.0) pg MCHC 33.7 (32.0-36.0) g/dL RDW Std Deviation 44.4 (36.4-46.3) fL RDW Coeff of Hector 12.8 (11.5-14.5) % Plt Count 341 (130-400) K/uL MPV 10.6 (9.4-12.4) fL Immature Gran % (Auto) 1.1 % Neut % (Auto) 66.2 % Lymph % (Auto) 20.6 % Thurston % (Auto) 10.5 % Eos % (Auto) 1.2 % Baso % (Auto) 0.4 % Neut # (Auto) 10.62 H (1.40-6.50) K/uL Lymph # (Auto) 3.31 (1.20-3.40) K/uL Thurston # (Auto) 1.69 H (0.11-0.59) K/uL Eos # (Auto) 0.19 (0.00-0.50) K/uL Baso # (Auto) 0.07 (0.00-0.20) K/uL Immature Gran # (Auto) 0.17 (0.01-0.20) K/uL PT 10.7 (9.0-12.0) Seconds INR 1.0 (0.9-1.1) APTT 26 (21-31) Seconds PTT Ratio 1.0 VBG pH 7.39 (7.36-7.41) VBG pCO2 46 (38-50) mmHg VBG pO2 39 mmHg VBG HCO3 28 mmol/L VBG O2 Saturation 72.3 % VBG Base Excess 2.2 mEq/L Sodium 141 (136-145) mmol/L Potassium 3.4 L (3.5-5.1) mmol/L Chloride 105 (98-107) mmol/L Carbon Dioxide 28 (21-32) mmol/L Anion Gap 8 (3-11) BUN 17 (6-23) mg/dl Creatinine 0.59 L (0.6-1.2) mg/dl Est Cr Clr Drug Dosing 65.2 ml/min eGFR 93.93 BUN/Creatinine Ratio 28.8 H (10-20) Glucose 115 H (70-99(Fasting)) mg/dl Lactate 1.2 (0.4-2.0) mmol/L Calcium 9.2 (8.6-10.3) mg/dl Magnesium 2.1 (1.7-2.4) mg/dl Total Bilirubin 0.4 (0.2-1.0) mg/dl Direct Bilirubin 0.2 (0-0.2) mg/dl AST 16 (13-39) U/L ALT 13 (7-52) U/L Alkaline Phosphatase 74 (34-104) U/L Troponin I High Sens 12.8 (0-14) pg/ml Total Protein 7.7 (6.0-8.3) gm/dl Albumin 3.7 (3.4-5.0) gm/dl Procalcitonin 0.11 (0-0.5) ng/ml Adenovirus (PCR) Not Detected (NotDetected) B. pertussis DNA (PCR) Not Detected (NotDetected) B.parapertussis DNA PCR Not Detected (NotDetected) C. pneumoniae DNA (PCR) Not Detected (NotDetected) Coronavirus OC43 (PCR) Not Detected (NotDetected) Coronavirus HKU1 (PCR) Not Detected (NotDetected) Coronavirus 229E (PCR) Not Detected (NotDetected) SARS-CoV-2 (PCR) Not Detected (NotDetected) Coronavirus NL63 (PCR) Not Detected (NotDetected) Human Metapneumovir PCR DETECTED A (NotDetected) Influenza Type A (PCR) Not Detected (NotDetected) Influenza Type B (PCR) Not Detected (NotDetected) M. pneumoniae (PCR) Not Detected (NotDetected) Parainfluenza 1 (PCR) Not Detected (NotDetected) Parainfluenza 2 (PCR) Not Detected (NotDetected) Parainfluenza 3 (PCR) Not Detected (NotDetected) Parainfluenza 4 (PCR) Not Detected (NotDetected) RSV (PCR) Not Detected (NotDetected) Entero/Rhino (PCR) Not Detected (NotDetected) Administered Medications Albuterol (Albut/Ipratrop 3mg/0.5mg Neb 3 Ml Vial) 3 ml NEB Q6R GONZALES; Protocol Stop: 10/29/24 12:59 Last Admin: 09/29/24 12:47 Dose: 3 ml Documented By: NRB Discontinued Medications Albuterol (Albut/Ipratrop 3mg/0.5mg Neb 3 Ml Vial) 3 ml NEB NOW STA; Protocol Stop: 09/29/24 10:59 Last Admin: 09/29/24 11:15 Dose: 3 ml Documented By: SILKE Azithromycin (Azithromycin 250 Mg Tab) 500 mg PO NOW ONE Stop: 09/29/24 12:40 Last Admin: 09/29/24 12:47 Dose: 500 mg Documented By: SILKE Cefepime HCl (Maxipime 2000mg) 2,000 mg in 20 mls @ 5 mls/min IV NOW STA; Protocol Stop: 09/29/24 12:12 Last Admin: 09/29/24 12:31 Dose: 5 mls/min Documented By: SILKE Imaging Data Attestation: I personally reviewed and interpreted this imaging study as follows: My Impression: 1 view chest x-ray was obtained in the emergency department. My interpretation is poor inspiratory effort, final report below. Radiologist's Impression: Chest X-Ray 09/29/24 10:58 XR chest 1V portable CLINICAL HISTORY: Sepsis TECHNIQUE: Single frontal radiograph of the chest was obtained. Comparison: Comparison is made to chest radiograph 01/17/2024 FINDINGS: No lines and tubes are seen. Cardiomegaly is noted. Faint bibasilar airspace opacities are seen. No evidence of pleural effusion or pneumothorax. IMPRESSION: Faint bibasilar airspace opacities which may represent atelectasis, pneumonia, and/or aspiration. ACT 112: Negative or not required by law. Electronically signed by: Man Jenkins M.D. 09/29/2024 11:42 AM Discharge Plan Visit Data Chief Complaint: Respiratory Problems Stated Complaint: COUGH, ED Provider: Brandon Nance Discharge Problem: Pneumonia, Acute bronchitis due to human metapneumovirus (hMPV) Patient Disposition: Being Evaluated by Hospitalist Forms Stand Alone Forms: [facility] Prescriptions Prescriptions: No Action lorazepam [Ativan] 1 mg tablet 0.5 - 1 mg PO TID PRN (Reason: Anxiety) Tylenol PM Extra Strength 25-500 mg Tablet 1 tab PO HS PRN (Reason: Sleep) levothyroxine [Synthroid] 112 mcg tablet 137 mcg PO DAILY Passion Flower 1 tab PO DAILY Saccharomyces boulardii [Florastor] 250 mg capsule 250 mg PO BID Qty: 28 0RF Rx Instructions: swallow whole Referrals Referrals: Leann Franklin PA-C [Primary Care Provider] - Discharge Problem: Pneumonia Qualifiers: Pneumonia type: due to unspecified organism Laterality: bilateral Lung location: lower lobe of lung Qualified Code(s): J18.9 - Pneumonia, unspecified organism
[2024-09-29] MEDS: ALBUT/IPRATROP 3MG/0.5MG NEB 3 ML VIAL NEB STA (11:15)
--- NOTE | 2024-09-29 11:43 | XRay Report ---
XR chest 1V portable CLINICAL HISTORY: Sepsis TECHNIQUE: Single frontal radiograph of the chest was obtained. Comparison: Comparison is made to chest radiograph 01/17/2024 FINDINGS: No lines and tubes are seen. Cardiomegaly is noted. Faint bibasilar airspace opacities are seen. No e vidence of pleural effusion or pneumothorax. IMPRESSION: Faint bibasilar airspace opacities which may represent atelectasis, pneumonia, and/or aspiration. ACT 112: Negative or not required by law. Electronically signed by: Man Jenkins M.D. 09/29/2024 11:42 AM
[2024-09-29 11:52] LABS: Base Excess VBG 2.2 mEq/L; HCO3 VBG 28 mmol/L; Oxygen Saturation VBG 72.3 %; PCO2 VBG 46 mmHg (38-50); PO2 VBG 39 mmHg; pH VBG 7.39 (7.36-7.41)
[2024-09-29 11:59] LABS: Basophils # (auto) 0.07 K/uL (0.00-0.20); Basophils % (auto) 0.4 %; Eosinophils # (auto) 0.19 K/uL (0.00-0.50); Eosinophils % (auto) 1.2 %; Hematocrit (blood only) 35.9 % (37.0-47.0); Hemoglobin 12.1 g/dl (12.0-16.0); Immature Granulocytes # (auto) 0.17 K/uL (0.01-0.20); Immature Granulocytes % (auto) 1.1 %; Lymphocytes # (auto) 3.31 K/uL (1.20-3.40); Lymphocytes % (auto) 20.6 %; Mean Corpuscular Hemoglobin 31.5 pg (25.0-34.0); Mean Corpuscular Hgb Conc 33.7 g/dL (32.0-36.0); Mean Corpuscular Volume 93.5 fL (80.0-100.0); Mean Platelet Volume 10.6 fL (9.4-12.4); Monocytes # (auto) 1.69 K/uL (0.11-0.59); Monocytes % (auto) 10.5 %; Neutrophils # (auto) 10.62 K/uL (1.40-6.50); Neutrophils % (auto) 66.2 %; Platelet Count 341 K/uL (130-400); RDW Coefficient of Variation 12.8 % (11.5-14.5); RDW Standard Deviation 44.4 fL (36.4-46.3); Red Blood Count 3.84 M/uL (4.20-5.40); White Blood Count 16.05 K/ul (4.8-10.8)
[2024-09-29 12:11] LABS: Albumin Level 3.7 gm/dl (3.4-5.0); BUN Creatinine Ratio 28.8 (10-20); Bilirubin Direct 0.2 mg/dl (0-0.2); Bilirubin,Total 0.4 mg/dl (0.2-1.0); Calcium 9.2 mg/dl (8.6-10.3); Creatinine Clr Calc Pharmacy 65.2 ml/min; Magnesium 2.1 mg/dl (1.7-2.4); Potassium 3.4 mmol/L (3.5-5.1); Total Protein 7.7 gm/dl (6.0-8.3)
[2024-09-29 12:17] LABS: Troponin I High Sensitivity 12.8 pg/ml (0-14)
[2024-09-29 12:22] LABS: Partial Thromboplastin Time 26 Seconds (21-31); Prothrombin Time 10.7 Seconds (9.0-12.0)
[2024-09-29] MEDS: CEFEPIME 2000MG 2,000 MG/20 ML SYR IV STA (12:31)
[2024-09-29] MEDS ORDERED: ALBUTEROL 0.083% NEBU SOLN 3 ML VIAL NEB PRN (12:37)
[2024-09-29] MEDS: ALBUT/IPRATROP 3MG/0.5MG NEB 3 ML VIAL NEB SCH (12:47)
[2024-09-29] MEDS: AZITHROMYCIN 250 MG TAB PO ONE (12:47)
[2024-09-29 12:49] LABS: Adenovirus PCR Not Detected (NotDetected); Bordetella parapertussis PCR Not Detected (NotDetected); Bordetella pertussis PCR Not Detected (NotDetected); Chlamydia pneumoniae PCR Not Detected (NotDetected); Coronavirus 229E PCR Not Detected (NotDetected); Coronavirus CoV-2 (COVID19)PCR Not Detected (NotDetected); Coronavirus HKU1 PCR Not Detected (NotDetected); Coronavirus NL63 PCR Not Detected (NotDetected); Coronavirus OC43PCR Not Detected (NotDetected); Human Metapneumovirus PCR DETECTED (NotDetected); Influenza A PCR Not Detected (NotDetected); Influenza B PCR Not Detected (NotDetected); Mycoplasma pneumoniae PCR Not Detected (NotDetected); Parainfluenza Virus 1 PCR Not Detected (NotDetected); Parainfluenza Virus 2 PCR Not Detected (NotDetected); Parainfluenza Virus 3 PCR Not Detected (NotDetected); Parainfluenza Virus 4 PCR Not Detected (NotDetected); Respiratory Syncytial VirusPCR Not Detected (NotDetected); Rhinovirus/Enterovirus PCR Not Detected (NotDetected)
[2024-09-29] MEDS ORDERED: ACETAMINOPHEN 325 MG TAB PO PRN (13:14)
--- NOTE | 2024-09-29 13:21 | History & Physical Report ---
Date of Service September 29, 2024 Assessment & Plan (1) Pneumonia: Plan: Assessment: 1. Acute hypoxemic respiratory failure secondary to the below. 2. Acute human metapneumovirus. Supportive care with pulmonary toilet with nebulizers. 3. By chest x-ray probable bilateral lower lobe infiltrates. IV Rocephin. IV azithromycin. Received 1 dose of IV cefepime in the ER. Sputum cultures. Pulmonary toilet including nebulizers as well. 4. Underlying dementia. Mild to moderate. 5. Leukocytosis probably secondary to above. Will trend her CBC. 6. Hypothyroidism. Continue supplemental Synthroid at home dose. Check TSH in the morning. Plan. As discussed above. Please refer to orders for further planning. History of Present Illness Chief Complaint: Shortness of breath cough Primary Care Provider: Leann Franklin 73-year-old female with dementia taking care of well by her and her daughter at home. Over the last 10 to 14 days she has had cough. Shortness of breath seems to worsen today was brought to the ER for further evaluation and treatment. Sats drop into the 80s with any type of activity. She was placed on supplemental oxygen. White count was over 16,000. Chest x-ray was possible positive for bilateral infiltrates in the lower lobes. [employer] respiratory panel came back positive for human metapneumovirus. Course in the ER she received breathing treatments supplemental oxygen as well as a dose of IV cefepime. We are called admit the patient further evaluation and treatment. Will continue IV Rocephin and IV azithromycin for possible community-acquired pneumonia and pulmonary toilet for her virus and airborne isolation's. Allergies Allergy/AdvReac Type Severity Reaction Status Date / Time clarithromycin Allergy Unknown unknown Verified 06/28/24 10:36 doxycycline Allergy Unknown unknown Verified 06/28/24 10:36 gabapentin Allergy Unknown UNKNOWN Verified 06/28/24 10:36 Milk Containing Products Allergy Unknown GI SYMPTOMS Verified 06/28/24 10:36 (Dairy) [Milk Containing Products] norepinephrine AdvReac Unknown rapid hr Verified 06/28/24 10:36 Lactose. Allergy Unknown GI SYMPTOMS Uncoded 06/28/24 10:36 Home Medications Medication Instructions Recorded Confirmed Type Passion Flower 1 tab PO DAILY 02/02/20 09/29/24 History Saccharomyces boulardii 250 mg 250 mg PO BID #28 caps 02/02/20 09/29/24 Rx capsule (Florastor) diphenhydramine 25 1 tab PO HS PRN Sleep 02/02/20 09/29/24 History mg-acetaminophen 500 mg tablet (Tylenol PM Extra Strength) levothyroxine 112 mcg tablet 137 mcg PO DAILY 02/02/20 09/29/24 History (Synthroid) lorazepam 1 mg tablet (Ativan) 0.5 - 1 mg PO TID PRN Anxiety 02/02/20 09/29/24 History Past Med/Surg History Problem List (Updated 09/29/24 @ 13:15 by Brandon Nance DO) Acute bronchitis due to human metapneumovirus (hMPV) (Acute) Pneumonia (Acute) Uterine procidentia Bacteremia due to Gram-negative bacteria (Acute) Urinary tract infection (Acute) Cystocele with prolapse (Acute) Hypothyroidism Altered mental status Tardive dyskinesia (Chronic) Acute pulmonary embolism Constipation (Chronic) Pneumonitis (Acute) Medical History (Updated 09/29/24 @ 13:15 by Brandon Nance DO) Dementia Social History Smoking Status: Never smoker Second Hand Exposure: No; Do You Dip or Chew Tobacco: No; Hx Alcohol Use: No Hx Substance Use: No Preferred Language: Hungarian Communication Ability: Effective Area Captain Required: No Beliefs That Will Affect Care: None Current Living Situation: Spouse Feels Safe at Home: Yes Assistive Devices: None Review of Systems Review of Systems: A 10 point review of system was obtained and unless otherwise stated here or in history of present illness are negative and noncontributory to chief complaint. Physical Exam 2 Physical Exam: In General: In general very pleasant 73-year-old female of [place] descent. Accompanied by her and her daughter at the time of my examination. She is alert and oriented to person and place not to time which is her baseline given her underlying dementia. HEENT: Normocephalic atraumatic pupils are equal round and reactive to light bilaterally. No scleral icterus no conjunctival injection external auditory canals are patent septum is in the midline nose is without discharge oral mucosa is pink and moist without lesion. NECK: Supple no rigidity no lymphadenopathy no thyromegaly no carotid bruits no JVD no masses. HEART: Regular rate and rhythm I do not appreciate any ectopy or rub. No murmur. LUNGS: Coarse bilaterally with bilateral rhonchi with decreased breath sounds in the bases with bilateral expiratory wheezes. ABDOMEN: Soft nontender, no rebound, no peritoneal signs, positive bowel sounds, no appreciable organomegaly. EXTREMITIES: Intact, no peripheral cyanosis, clubbing or edema. Strength is 5 out of 5 in extremities x4. NEUROLOGICAL: Cranial nerves II through XII are grossly intact with no focal deficit elicited upon examination.. Results & Data Results & Data Vital Signs (Past 12 Hours) Vital Signs Temp Pulse Pulse Resp BP BP Pulse Ox 09/29/24 12:41 91 09/29/24 12:06 76 09/29/24 11:45 37.0 C 78 18 169/91 H 92 09/29/24 11:12 09/29/24 11:10 09/29/24 10:50 76 24 158/89 H 96 O2 Del Method 09/29/24 12:41 Room Air 09/29/24 12:06 09/29/24 11:45 Room Air 09/29/24 11:12 Room Air 09/29/24 11:10 Room Air 09/29/24 10:50 Room Air Code Status & VTE Plan Code Status Full code. I personally discussed with the patient's and the patient at the bedside. VTE Prophylaxis Plan VTE Prophylaxis will be ordered: Yes PG Care Time/CCT Total # of Minutes Spent Total Time Spent with Patient: Total time spent is greater than 50% in coordination of care (as documented) at patient's floor/unit and/or counseling patient: Coding Level of Care Code 41699 INT INP/OBS CARE 3/75MIN Diagnoses Pneumonia J18.9 Laterality: bilateral Lung location: lower lobe of lung Pneumonia type: due to unspecified organism (1) Pneumonia Laterality: bilateral Lung location: lower lobe of lung Pneumonia type: due to unspecified organism Qualified Code(s): J18.9 - Pneumonia, unspecified organism
--- NOTE | 2024-09-29 17:47 | Electrocardiogram Report ---
Test Reason : Blood Pressure : */* mmHG Vent. Rate : 85 BPM Atrial Rate : 85 BPM P-R Int : 178 ms QRS Dur : 88 ms QT Int : 384 ms P-R-T Axes : 52 -23 37 degrees QTcB Int : 456 ms Normal sinus rhythm Minimal voltage criteria for LVH, may be normal variant ( R in aVL ) Anterior infarct (cited on or before 17-Jan-2024) Abnormal ECG When compared with ECG of 17-Jan-2024 07:49, No significant change was found Confirmed by Leo Del Rosario ([id number]) on 09/29/2024 5:47:27 PM Referred By: Confirmed By: Leo Del Rosario
[2024-09-29] MEDS: cefTRIAXone SODIUM 2,000 MG/50 ML BAG IV SCH (19:50)
[2024-09-30] MEDS: LEVOTHYROXINE SODIUM 137 MCG TABLET PO SCH (05:51)
[2024-09-30 06:42] LABS: Hematocrit (blood only) 34.4 % (37.0-47.0); Hemoglobin 11.7 g/dl (12.0-16.0); Mean Corpuscular Hemoglobin 31.6 pg (25.0-34.0); Mean Platelet Volume 10.6 fL (9.4-12.4); Platelet Count 365 K/uL (130-400); RDW Coefficient of Variation 12.9 % (11.5-14.5); RDW Standard Deviation 44.1 fL (36.4-46.3); White Blood Count 12.97 K/ul (4.8-10.8)
[2024-09-30 06:46] LABS: Basophils # (auto) 0.04 K/uL (0.00-0.20); Basophils % (auto) 0.3 %; Eosinophils # (auto) 0.14 K/uL (0.00-0.50); Eosinophils % (auto) 1.1 %; Immature Granulocytes # (auto) 0.15 K/uL (0.01-0.20); Immature Granulocytes % (auto) 1.2 %; Lymphocytes # (auto) 2.39 K/uL (1.20-3.40); Lymphocytes % (auto) 18.4 %; Monocytes # (auto) 1.25 K/uL (0.11-0.59); Monocytes % (auto) 9.6 %; Neutrophils % (auto) 69.4 %; Tear Drop Cells Occasional
[2024-09-30 07:09] LABS: Albumin Globulin Ratio 0.9 (0.9-2); Albumin Level 3.3 gm/dl (3.4-5.0); BUN Creatinine Ratio 30.8 (10-20); Bilirubin,Total 0.4 mg/dl (0.2-1.0); Calcium 8.4 mg/dl (8.6-10.3); Chol HDL Ratio 2.6 (0-5); Creatinine Clr Calc Pharmacy 59.1 ml/min; Globulin 3.5 gm/dl (2.5-4.0); Magnesium 2.1 mg/dl (1.7-2.4); Potassium 3.5 mmol/L (3.5-5.1); Total Protein 6.8 gm/dl (6.0-8.3)
[2024-09-30 07:14] VITALS: BP 145/79; TEMP 98.6
[2024-09-30 07:24] LABS: Thyroid Stimulating Hormone 2.772 uIu/ml (0.300-4.500)
[2024-09-30] MEDS: AZITHROMYCIN 250 MG TAB PO SCH (08:51)
[2024-09-30 12:23] VITALS: PULSE 77; RESP 20; O2SAT 96
--- NOTE | 2024-09-30 16:40 | Discharge Summary ---
Discharge Summary Date of Service September 30, 2024 Principal Dx & Hospital Course #1 = Principal Diagnosis (1) Pneumonia: 73 y/o woman with dementia admitted with viral pneumonia caused by metapneumovirus. Bilateral mild lower lobe infiltrates on CXR. I doubt she also has bacterial pneumonia but she was started on ceftriaxone and azithromycin on admission and today has had improvement in her alertness. She is not hypoxic today satting 96% on room air and Tmax 100.9. Leukocytosis improved from 16-->13K. Safe for discharge home under the care of her and daughter who are at bedside. I elected to complete the course of antibiotics with ce furoxime and azithromycin because she is higher risk because of her age and dementia. Mucinex PRN cough. Someone checked a lipid panel this morning and LDL was 57, no indication for statin Hypothyroidism - TSH 2.7 - continue levothyroxine moderate dementia - per family she was a bit lethargic and this has improved Notes For Next Care Provider Medication Changes From Visit maya garcia Admission HPI Per Admitting Provider 73-year-old female with dementia taking care of well by her and her daughter at home. Over the last 10 to 14 days she has had cough. Shortness of breath seems to worsen today was brought to the ER for further evaluation and treatment. Sats drop into the 80s with any type of activity. She was placed on supplemental oxygen. White count was over 16,000. Chest x-ray was possible positive for bilateral infiltrates in the lower lobes. [employer] respiratory panel came back positive for human metapneumovirus. Course in the ER she received breathing treatments supplemental oxygen as well as a dose of IV cefepime. We are called admit the patient further evaluation and treatment. Will continue IV Rocephin and IV azithromycin for possible community-acquired pneumonia and pulmonary toilet for her virus and airborne isolation's. Discharge Exam PHYSICAL EXAMINATION Last 24h vital signs reviewed, see documentation in flowsheet General: comfortable appearing, no distress HEENT: Normocephalic, atraumatic, pupils round and equal, sclerae anicteric, no conjunctival injection, moist mucus membranes Lungs: Normal respiratory effort. clear to auscultation bilaterally posteriorly, slightly coarse breath sounds bilaterally anteriorly no wheezing Heart: Regular rate and rhythm, no murmurs. No JVD Abdomen: Soft, nontender, nondistended. Bowel sounds present. Extremities: Warm, dry, well-perfused. No extremity edema. Neuro: Alert and oriented x self and to her family but not at all to situation, face symmetric, moves 4 extremities well Psych: Normal affect and behavior Discharge Plan Discharge Items Patient Disposition: Home - Self-Care Reason For Visit: VIRAL PNA Discharge Diagnosis: metapneumovirus pneumonia Activity: Resume your previous activity Non-emergency contact: Primary Care Provider Call non-emergency contact if: you have any medication questions, your symptoms worsen and your temperature is above 101 Follow-up/Referrals: Leann Franklin PA-C [Primary Care Provider] - (FAMILY WILL MAKE HOSPITAL FOLLOW UP VISIT IN 7-10 DAYS FOR PATIENT.) Diet: Regular Addtl Attending Provider Instructions: You have a mild pneumonia related to a common virus (metapneumovirus) I think it is unlikely that you also have pneumonia from bacteria, however, you are high risk for complications so we are going to treat with antibiotics You can take mucinex (guaifenesin) 600 mg twice a day for cough and congestion Avoid over the counter cough medicines that have ingredients like dextromethorphan or diphenhydramine - these could cause confusion Acetaminophen is safe to take for aches and pains and fever - max 3000 mg per 24 hours Nasal saline can be used for nasal congestion. Its also ok to use afrin for max of three days for more severe sinus/nasal congestion. You might have mildly low oxygen for awhile as you recover but it should be staying >88% Seek medical attention if you have worsening confusion or lethargy, severely low oxygen, high fever >101 You will probably continue to have some low-grade fevers <101 for a few days or a week Cough from a virus can last up to three weeks but should be slowly improving It was a pleasure taking care of you in the hospital, Maricruz See MD Pending Studies at Discharge: Yes (blood cultures - finalize after 5 days) Stand-Alone Forms: My [employer], Smoking Cessation Medications and DC Order Prescriptions: New azithromycin 250 mg Tablet 500 mg PO QAM Qty: 1 0RF Rx Instructions: last dose AM of 10/01 cefuroxime axetil 500 mg tablet 500 mg PO BID 7 Days Qty: 14 0RF acetaminophen 325 mg Tablet 650 mg PO Q4H PRN (Reason: pain or fever) Qty: 0 0RF Rx Instructions: over the counter - max 3000 mg per 24h guaifenesin [Mucinex] 600 mg tablet extended release 12hr 600 mg PO BID PRN (Reason: cough) Qty: 10 0RF Rx Instructions: buy over the counter Continued diphenhydramine-acetaminophen [Tylenol PM Extra Strength] 25-500 mg Tablet 1 tab PO HS PRN (Reason: Sleep) Saccharomyces boulardii [Florastor] 250 mg capsule 250 mg PO BID Qty: 28 0RF Rx Instructions: swallow whole levothyroxine 137 mcg tablet 137 mcg PO DAILYBB clonazepam 1 mg tablet 1 mg PO DAILY Rx Instructions: Afternoon time lorazepam 1 mg tablet 1 - 2 mg PO HS PRN (Reason: Anxiety) Discharge Orders: Discharge Order (Routine); Ordered 09/30/24 Ordered By: Maricruz See Admission Data Admit Date/Time: 09/29/24 13:16 Attending Provider: Maricruz See Admit Provider: Walt Hendricks Primary Care Provider: Leann Franklin Other Providers: Walt Hendricks Other Interventions: Discharge Summary Assessment (RN) Last Done: 09/30/24 11:37 Hospital Stay Data Consultations 09/29/24 12:35 ED Decision to Admit Stat Pending Results Patient Have Any Pending Studies at Discharge: Yes (blood cultures - finalize after 5 days) Discharge Instructions Given to Patient (Per Discharging Provider) You have a mild pneumonia related to a common virus (metapneumovirus) I think it is unlikely that you also have pneumonia from bacteria, however, you are high risk for complications so we are going to treat with antibiotics You can take mucinex (guaifenesin) 600 mg twice a day for cough and congestion Avoid over the counter cough medicines that have ingredients like dextromethorphan or diphenhydramine - these could cause confusion Acetaminophen is safe to take for aches and pains and fever - max 3000 mg per 24 hours Nasal saline can be used for nasal congestion. Its also ok to use afrin for max of three days for more severe sinus/nasal congestion. You might have mildly low oxygen for awhile as you recover but it should be staying >88% Seek medical attention if you have worsening confusion or lethargy, severely low oxygen, high fever >101 You will probably continue to have some low-grade fevers <101 for a few days or a week Cough from a virus can last up to three weeks but should be slowly improving It was a pleasure taking care of you in the hospital, Maricruz See MD Total Time Total Time Spent Total Time Spent (In Minutes): <30 minutes Coding Level of Care Code 06937 IN/OBS DISCH 30 MIN/LESS Diagnoses Pneumonia J18.9 Laterality: bilateral Lung location: lower lobe of lung Pneumonia type: due to unspecified organism
--- NOTE | 2024-10-02 14:49 | Coding Query ---
To promote full compliance with coding requirements relating to patient care, provider participation is requested in all cases of ecg technician uncertainty. Please assist us with the question(s) below: Coding Question(s): The diagnosis below was documented in the H&P, then subsequently fell off all further documentation. Please indicate if it is still a possible diagnosis or ruled out. Physician's Response(s): ACUTE HYPOXIC RESPIRATORY FAILURE ( ) Diagnosed and POA ( ) Diagnosed and not POA ( ) Ruled out ( x ) Other (please specify) Said to drop oxygen into 80s with activity in H&P but presumably that was at home and I see no documented low O2 saturations in the medical record. Unable to confirm. MTDD
== END 2024-09-30 12:22 | disposition home or self-care (01) | DRG 195 ==
LOC: ED 10:50 → INTOOBSV 13:16 → SUATTDRO 13:16 → 3E 13:16